=== PATIENT | female | born 1935 | race Caucasian/White ===

== ENCOUNTER 2017-09-14 14:24 | Emergency (ER) | payer OTHER ==
[2017-09-14] MEDS ORDERED: IPRATROPIUM BROM 0.5MG/2.5ML ONE (15:47)
[2017-09-14] MEDS ORDERED: ALBUTEROL 2.5 MG/3 ML NEB SOL ONE (15:47)
--- NOTE | 2017-09-14 16:01 | RAD REPORT ---
EXAM DESCRIPTION: RAD - Chest Pa And Lat (2 Views) - 09/14/2017 3:46 pm CLINICAL HISTORY: Cough, shortness of breath COMPARISON: June 2017 TECHNIQUE: PA and lateral views of the chest were obtained. FINDINGS: The lungs are fibrotic but otherwise clear of an acute process. Left costophrenic angle bl unting is present. Heart size is normal and central vasculature is within normal limits. No pneumo thorax. Osteopenic changes are present. There is accentuated kyphosis. The patient has multiple thora cic partial compression fractures. No bony changes since June. No aortic abnormality. Small hiat al hernia is present. IMPRESSION: Fibrotic lung pattern with no acute lung parenchymal process seen. Small left pleural effusion new from June.
--- NOTE | 2017-09-14 17:05 | ER ---
Nurse's Notes [facility] Emergency Department Name: Ciera Amor Age: 81 yrs Sex: Female : 1935 Arrival Date: 09/14/2017 Time: 14:25 Bed 27 Private MD: Jeffry Huddleston C Diagnosis: Acute bronchitis Presentation: 09/14 14:30 Presenting complaint: Patient states: " On Fri my throat felt swollen and I ph started losing my voice and got a cough. I am coughing up yellow and green thick mucus. Last night I got very SOB." Pt reports slight SOB and nausea, denies fever, V/D, roque eyes are reddened and pt reports crusting in eyes this morning. Transition of care: patient was not received from another setting of care. Onset of symptoms was September 14, 2017. Care prior to arrival: None. 14:30 Method Of Arrival: Wheelchair ph 14:30 Acuity: ROLAND 3 ph Triage Assessment: 16:03 General: Appears in no apparent distress. Behavior is calm, cooperative. Respiratory: rk2 Onset: The symptoms/episode began/occurred. Respiratory: Reports the patient has mild shortness of breath. Historical: - Allergies: 14:38 No Known Allergies; ph - PMHx: 14:38 Osteoporosis; Arthritis; breast cancer L; Hypertension; ph - PSHx: 14:38 Knee surgery; hip replacement; ph - Immunization history:: Pneumococcal vaccine is up to date, Flu vaccine is up to date. - Social history:: Smoking status: Patient/guardian denies using tobacco. Screenin:00 Abuse screen: Denies threats or abuse. Nutritional screening: No deficits noted. rk2 Tuberculosis screening: No symptoms or risk factors identified. Fall Risk Gait- Weak (10 pts.). Assessment: 16:01 Pain: Complains of pain in neck pain. Neuro: Level of Consciousness is alert, obeys rk2 commands, Oriented to person, place, time, situation. Cardiovascular: Rhythm is regular. Respiratory: Airway. Respiratory: Respiratory effort is even, unlabored, Respiratory pattern is regular, symmetrical, Breath sounds are clear in right upper lobe, left upper lobe, right middle lobe and left lower lobe Breath sounds with wheezes in right posterior lower lobe. Derm: Skin is pink, warm \\T\\ dry. 16:25 Reassessment: Pt. is resting in room in no obvious distress... completed breathing tx. rk2 Family \\T\\ bedside. Pt. voiced no needs \\T\\ this time. 17:17 Reassessment: Reviewed DC instructions and prescriptions with pt./family. No IV. Pt. rk2 taken out by wheelchair. Vital Signs: 14:33 BP 116 / 56; Pulse 85; Resp 22; Temp 98.1; Pulse Ox 97% on R/A; Weight 70.31 kg; Height ph 5 ft. 1 in. (154.94 cm); 16:30 BP 120 / 61; Pulse 85; Resp 17; Pulse Ox 98% on R/A; rk2 14:33 Body Mass Index 29.29 (70.31 kg, 154.94 cm) ph ED Course: 14:25 Patient arrived in ED. as 14:25 Jeffry Huddleston MD is Private Physician. as 14:33 Triage completed. ph 14:38 Arm band placed on. ph 15:03 Bhanu Coto MD is Attending Physician. 15:15 Joselin Costa RN is Primary Nurse. rk2 15:33 XRAY Chest Pa And Lat (2 Views) Sent. rk2 15:33 Influenza Screen (a \\T\\ B) Sent. rk2 15:38 Patient moved to radiology via wheelchair. kp1 15:43 Patient moved back from radiology. kp1 16:00 Patient has correct armband on for positive identification. Placed in gown. Bed in low rk2 position. Call light in reach. 17:18 No provider procedures requiring assistance completed. Patient did not have IV access rk2 during this emergency room visit. Administered Medications: 15:56 Drug: Albuterol 2.5 mg Route: Inhalation; rk2 17:19 Follow up: Response: No adverse reaction; No adverse reaction, Small aount of rk2 improvement. 15:56 Drug: AtroVENT Aerosol 0.5 mg Route: Inhalation; rk2 16:30 Follow up: Response: No adverse reaction; No adverse reaction, Small aount of rk2 improvement. Outcome: 17:05 Discharge ordered by . 17:18 Discharged to home via wheelchair. rk2 17:18 Condition: good 17:18 Discharge instructions given to patient, family, Prescriptions given X 2. 17:20 Patient left the ED. rk2 Signatures: Loulou Magaña Patricia, RN RN ph Rosy Bassett kp1 Bhanu Coto MD MD gs Joselin Costa RN RN rk2
--- NOTE | 2017-09-14 17:05 | EDPHYS ---
Physician Documentation [facility] Name: Ciera Amor Age: 81 yrs Sex: Female : 1935 Arrival Date: 09/14/2017 Time: 14:25 Bed 27 Private MD: Jeffry Huddleston C ED Physician Bhanu Coto HPI: 09/14 16:59 This 81 yrs old Female presents to ER via Wheelchair with complaints of gs Breathing Difficulty. 16:59 The patient or guardian reports cough, that is intermittent, difficulty breathing, flu gs symptoms, arthralgias, low-grade fever, myalgias, no appetite. Onset: The symptoms/episode began/occurred 4 day(s) ago, and became persistent. Severity of symptoms: At their worst the symptoms were moderate, in the emergency department the symptoms are unchanged. Modifying factors: The symptoms are alleviated by nothing, the symptoms are aggravated by cold weather. Associated signs and symptoms: Pertinent positives: fever, sore throat, Pertinent negatives: chest pain. The patient has experienced similar episodes in the past, a few times. Historical: - Allergies: 14:38 No Known Allergies; ph - PMHx: 14:38 Osteoporosis; Arthritis; breast cancer L; Hypertension; ph - PSHx: 14:38 Knee surgery; hip replacement; ph - Immunization history:: Pneumococcal vaccine is up to date, Flu vaccine is up to date. - Social history:: Smoking status: Patient/guardian denies using tobacco. ROS: 16:59 All other systems are negative. gs Exam: 16:59 Head/Face: Normocephalic, atraumatic. Eyes: Pupils equal round and reactive to light, gs extra-ocular motions intact. Lids and lashes normal. Conjunctiva and sclera are non-icteric and not injected. Cornea within normal limits. Periorbital areas with no swelling, redness, or edema. ENT: Nares patent. No nasal discharge, no septal abnormalities noted. Tympanic membranes are normal and external auditory canals are clear. Oropharynx with no redness, swelling, or masses, exudates, or evidence of obstruction, uvula midline. Mucous membranes moist. Neck: Trachea midline, no thyromegaly or masses palpated, and no cervical lymphadenopathy. Supple, full range of motion without nuchal rigidity, or vertebral point tenderness. No Meningismus. Chest/axilla: Normal chest wall appearance and motion. Nontender with no deformity. No lesions are appreciated. Cardiovascular: Regular rate and rhythm with a normal S1 and S2. No gallops, murmurs, or rubs. Normal PMI, no JVD. No pulse deficits. 16:59 Abdomen/GI: Soft, non-tender, with normal bowel sounds. No distension or tympany. No guarding or rebound. No evidence of tenderness throughout. Back: No spinal tenderness. No costovertebral tenderness. Full range of motion. Skin: Warm, dry with normal turgor. Normal color with no rashes, no lesions, and no evidence of cellulitis. MS/ Extremity: Pulses equal, no cyanosis. Neurovascular intact. Full, normal range of motion. Neuro: Awake and alert, GCS 15, oriented to person, place, time, and situation. Cranial nerves II-XII grossly intact. Motor strength 5/5 in all extremities. Sensory grossly intact. Cerebellar exam normal. Normal gait. 16:59 Constitutional: The patient appears alert, awake. 16:59 Chest/axilla: Inspection: kyphosis. 16:59 Respiratory: the patient does not display signs of respiratory distress, Respirations: normal, Breath sounds: rhonchi, that are mild, are scattered, stridor, is not appreciated. Vital Signs: 14:33 BP 116 / 56; Pulse 85; Resp 22; Temp 98.1; Pulse Ox 97% on R/A; Weight 70.31 kg; Height ph 5 ft. 1 in. (154.94 cm); 16:30 BP 120 / 61; Pulse 85; Resp 17; Pulse Ox 98% on R/A; rk2 14:33 Body Mass Index 29.29 (70.31 kg, 154.94 cm) ph MDM: 15:19 Patient medically screened. 16:59 Differential Diagnosis: Influenza Upper Respiratory Infection Pneumonia. Data reviewed: vital signs, nurses notes. Response to treatment: and as a result, I will discharge patient. 09/14 15:20 Order name: Influenza Screen (a \T\ B) 09/14 15:51 Order name: Influenza Screen (A ; Complete Time: 16:59 EDMS 09/14 15:20 Order name: XRAY Chest Pa And Lat (2 Views) 09/14 16:02 Order name: RAD; Complete Time: 16:59 EDMS Administered Medications: 15:56 Drug: Albuterol 2.5 mg Route: Inhalation; rk2 17:19 Follow up: Response: No adverse reaction; No adverse reaction, Small aount of rk2 improvement. 15:56 Drug: AtroVENT Aerosol 0.5 mg Route: Inhalation; rk2 16:30 Follow up: Response: No adverse reaction; No adverse reaction, Small aount of rk2 improvement. Disposition: 09/14/17 17:05 Discharged to Home. Impression: Acute bronchitis. - Condition is Stable. - Discharge Instructions: Acute Bronchitis. - Prescriptions for Prednisone 20 mg Oral Tablet - take 1 tablet by ORAL route once daily for 5 days; 5 tablet. Albuterol Sulfate 90 mcg/actuation - inhale 1-2 puff by INHALATION route every 4-6 hours; 1 Inhaler. - Medication Reconciliation Form, Thank You Letter, Antibiotic Education, Prescription Opioid Use form. - Follow up: Private Physician; When: 1 - 2 days; Reason: Re-evaluation by your physician. Signatures: Dispatcher [employer] EDTwila Her RN RN CotoBhanu jimenez MD MD Joselin Costa RN RN rk2
[2017-09-14 17:48] VITALS: TEMP 98.1
[2017-09-14 17:49] VITALS: BP 120/61; O2SAT 98
== END 2017-09-14 17:20 | disposition home or self-care (01) ==
LOC: ER 14:24
DX: J20.9 Acute bronchitis, unspecified (principal); I10 Essential (primary) hypertension; Z85.3 Personal history of malignant neoplasm of breast
CPT/HCPCS: 71046; 87804; 99284

== ENCOUNTER 2019-07-18 09:32 | Emergency (ER) | payer OTHER ==
--- NOTE | 2019-07-18 10:25 | RAD REPORT ---
EXAM DESCRIPTION: CT - Head Brain Wo Cont - 07/18/2019 10:10 am CLINICAL HISTORY: Alteration of awareness/confusion COMPARISON: None TECHNIQUE: Computed axial tomography of the head was obtained. IV contrast was not requested. All CT scans are performed using dose optimization technique as appropriate and may include automated exposure control or mA/KV adjustment according to patient size. FINDINGS: An intracranial bleed is not seen . The ventricles are normal in caliber. No extra-axial fluid collection is noted. Fluid within the sinuses/ mastoids is not seen. IMPRESSION: No acute intracranial abnormality is seen. If patient's symptoms persist MRI of the bra in would be recommended.
[2019-07-18 10:44] LABS: Absolute Lymphocytes (CBC) 2.7 K/uL (0.7-4.9); Basophils % 0.7 % (0-1.3); Hematocrit 42.6 % (36.0-45.0); Lymphocytes % 33.6 % (15.3-44.8); MPV 8.8 fL (7.6-11.3); RBC Red Blood Cell Count 4.99 M/uL (3.86-4.86)
--- NOTE | 2019-07-18 10:47 | RAD REPORT ---
EXAM DESCRIPTION: Paulina Single View07/18/2019 10:20 am CLINICAL HISTORY: Hypertension/blurred vision COMPARISON: 2017 FINDINGS: The lungs appear clear of acute infiltrate. The heart is normal size IMPRESSION: No acute abnormalities displayed
[2019-07-18 10:49] LABS: Protime INR 0.98
[2019-07-18 11:02] LABS: ALT/SGPT 25 U/L (12-78); AST/SGOT 22 U/L (15-37); Alkaline Phosphatase 47 U/L (45-117); BUN Blood Urea Nitrogen 10 mg/dL (7-18); Bicarbonate 27 mmol/L (21-32); Bilirubin Direct 0.1 mg/dL (0-0.2); Bilirubin Total 0.4 mg/dL (0.2-1.0); Glucose Level 117 mg/dL (74-106); NT PRO-BNP 380 pg/mL (<450); Potassium 3.6 mmol/L (3.5-5.1); Protein, Total 7.9 g/dL (6.4-8.2); Sodium Level 137 mmol/L (136-145); Troponin (Emerg Dept Use Only) < 0.02 ng/mL (0.0-0.045)
--- NOTE | 2019-07-18 11:58 | EKG ---
Test Date: 2019-07-18 Test Time: 10:26:10 [employer]ale Processing Technician: VICTOR MANUEL MEASUREMENT RESULTS: Intervals: Rate: 68 OK: 136 QRSD: 94 QT: 412 QTc: 438 [place]: P: 13 OK: 136 QRS: -41 T: 44 INTERPRETIVE STATEMENTS: Normal sinus rhythm Left axis deviation Minimal voltage criteria for LVH, may be normal variant Possible Anterior infarct, age undetermined Abnormal ECG Compared to ECG 07/10/2017 10:56:43 Left ventricular hypertrophy now present Myocardial infarct finding now present Electronically Signed On 07-18-19 11:58:02 STEM SETTER by Salvador Malik
[2019-07-18 12:04] LABS: Platelet Estimate ADEQ; Platelets, Giant PRESENT
[2019-07-18 12:05] LABS: Blood Morphology Comment NOT SEEN (NOT SEEN)
--- NOTE | 2019-07-18 12:25 | RAD REPORT ---
EXAM DESCRIPTION: CTHead angio07/18/2019 12:11 pm CLINICAL HISTORY: Visual disturbance COMPARISON: None TECHNIQUE: CT angiogram of the head was obtained. 3D MIPS reconstruction performed. All CT scans are performed using dose optimization technique as appropriate and may include automated exposure control or mA/KV adjustment according to patient size. FINDINGS: The basilar, internal carotid, anterior cerebral, middle cerebral and posterior cerebral a rteries do not demonstrate a significant stenosis. An aneurysm is not seen. origin of the right posterior cerebral artery is present. The distal internal carotid artery bi laterally is tortuous and ectatic. IMPRESSION: No acute abnormality is displayed
--- NOTE | 2019-07-18 13:19 | EDPHYS ---
Physician Documentation [facility] Name: Ciera Amor Age: 83 yrs Sex: Female : 1935 Arrival Date: 07/18/2019 Time: 09:34 Bed 23 Private MD: Jeffry Huddleston C ED Physician Ernie Joyner HPI: 07/19 12:23 This 83 yrs old Female presents to ER via Ambulatory with complaints of kdr Blurred Vision, Vision Problem, Headache. 12:23 The patient states that for the past 10 - 14 days she has had various visual kdr disturbances mostly in her right eye as well as occasional very mild ELIAS. She has not had this before and she states that her s/s come and go. She states that she has squiggly lines, spots and flashes that are transient. She denies AMS or any other focal weakness or other apparent neurological deficits.. Severity of symptoms: At their worst the symptoms were mild in the emergency department the symptoms have improved mildly. The patient has not experienced similar symptoms in the past. The patient has not recently seen a physician. Historical: - Allergies: 07/18 10:04 tramadol; ss - PMHx: 10:04 Arthritis; breast cancer L; Hypertension; Osteoporosis; ss - PSHx: 10:04 Knee surgery; hip replacement; ss - Immunization history:: Adult Immunizations up to date. - Coronavirus screen:: The patient has NOT traveled to [place], [place], or [place] in the past 14 days. Proceed with normal triage process as indicated. - Social history:: Smoking status: Patient denies any tobacco usage or history of. - Ebola Screening: : Patient denies exposure to infectious person Patient denies travel to an Ebola-affected area in the 21 days before illness onset. ROS: 07/19 12:23 Constitutional: Negative for fever, chills, and weight loss, Eyes: Negative for injury, kdr pain, redness, and discharge, ENT: Negative for injury, pain, and discharge, Neck: Negative for injury, pain, and swelling, Cardiovascular: Negative for chest pain, palpitations, and edema, Respiratory: Negative for shortness of breath, cough, wheezing, and pleuritic chest pain, Abdomen/GI: Negative for abdominal pain, nausea, vomiting, diarrhea, and constipation, Back: Negative for injury and pain, : Negative for injury, bleeding, discharge, and swelling, MS/Extremity: Negative for injury and deformity, Skin: Negative for injury, rash, and discoloration, Psych: Negative for depression, anxiety, suicide ideation, homicidal ideation, and hallucinations, Allergy/Immunology: Negative for hives, rash, and allergies. Neuro: Positive for dizziness, headache, visual changes, Negative for altered mental status, gait disturbance, hearing loss, loss of consciousness, numbness, seizure activity, speech changes, syncope, near syncope, tingling, tinnitus, tremor, weakness. Exam: 07/18 19:29 ECG was reviewed by the Attending Physician. kdr 07/19 12:23 Constitutional: This is a well developed, well nourished patient who is awake, alert, kdr and in no acute distress. Head/Face: Normocephalic, atraumatic. Eyes: Pupils equal round and reactive to light, extra-ocular motions intact. Lids and lashes normal. Conjunctiva and sclera are non-icteric and not injected. Cornea within normal limits. Periorbital areas with no swelling, redness, or edema. Neck: Trachea midline, no thyromegaly or masses palpated, and no cervical lymphadenopathy. Supple, full range of motion without nuchal rigidity, or vertebral point tenderness. No Meningismus. Chest/axilla: Normal chest wall appearance and motion. Nontender with no deformity. No lesions are appreciated. Cardiovascular: Regular rate and rhythm with a normal S1 and S2. No gallops, murmurs, or rubs. Normal PMI, no JVD. No pulse deficits. Respiratory: Lungs have equal breath sounds bilaterally, clear to auscultation and percussion. No rales, rhonchi or wheezes noted. No increased work of breathing, no retractions or nasal flaring. Abdomen/GI: Soft, non-tender, with normal bowel sounds. No distension or tympany. No guarding or rebound. No evidence of tenderness throughout. Back: No spinal tenderness. No costovertebral tenderness. Full range of motion. Skin: Warm, dry with normal turgor. Normal color with no rashes, no lesions, and no evidence of cellulitis. MS/ Extremity: Pulses equal, no cyanosis. Neurovascular intact. Full, normal range of motion. Neuro: Awake and alert, GCS 15, oriented to person, place, time, and situation. Cranial nerves II-XII grossly intact. Motor strength 5/5 in all extremities. Sensory grossly intact. Cerebellar exam normal. Normal gait. Visual hooks intact Psych: Awake, alert, with orientation to person, place and time. Behavior, mood, and affect are within normal limits. Vital Signs: 07/18 10:04 BP 136 / 96; Pulse 78; Resp 16; Pulse Ox 98% on R/A; Weight 68.04 kg; Height 5 ft. 0 ss in. (152.40 cm); Pain 0/10; 11:11 BP 150 / 72; Pulse 67; Resp 14; Pulse Ox 99% on R/A; aj1 12:16 BP 134 / 72; Pulse 85; Resp 18; Pulse Ox 97% on R/A; aj1 13:42 BP 140 / 61; Pulse 80; Resp 18; Temp 98; Pulse Ox 100% on R/A; mg2 10:04 Body Mass Index 29.29 (68.04 kg, 152.40 cm) ss MDM: 13:19 Patient medically screened. kdr 13:21 Data reviewed: vital signs, nurses notes, lab test result(s), EKG, radiologic studies. kdr Counseling: I had a detailed discussion with the patient and/or guardian regarding: the historical points, exam findings, and any diagnostic results supporting the discharge/admit diagnosis, lab results, radiology results, the need for outpatient follow up. Physician consultation: Ronald Simmons MD regarding consult, need to evaluate the patient as soon as possible, and will see patient in office, in 2-3 days. Physician consultation: Jeffry Huddleston MD regarding patient's condition, outpatient follow-up, and will see patient in office, next week. 07/18 09:46 Order name: Basic Metabolic Panel; Complete Time: 11:37 kdr 07/18 09:46 Order name: CBC with Diff; Complete Time: 12:23 kdr 07/18 09:46 Order name: LFT's; Complete Time: 11:37 kdr 07/18 09:46 Order name: Magnesium; Complete Time: 11:37 kdr 07/18 09:46 Order name: NT PRO-BNP; Complete Time: 11:37 kdr 07/18 09:46 Order name: PT-INR; Complete Time: 11:37 kdr 07/18 09:46 Order name: Troponin (emerg Dept Use Only); Complete Time: 11:37 kdr 07/18 09:46 Order name: XRAY Chest (1 view); Complete Time: 11:37 kdr 07/18 09:46 Order name: EKG; Complete Time: 09:47 kdr 07/18 09:46 Order name: Cardiac monitoring; Complete Time: 10:38 kdr 07/18 09:46 Order name: CT Head Brain wo Cont; Complete Time: 11:37 kdr 07/18 11:39 Order name: CT Head Angio; Complete Time: 12:47 kdr 07/18 11:58 Order name: ESR; Complete Time: 12:47 kdr 07/18 12:01 Order name: Manual Differential; Complete Time: 12:23 EDMS 07/18 09:46 Order name: EKG - Nurse/Tech; Complete Time: 10:38 kdr 07/18 09:46 Order name: IV Saline Lock; Complete Time: 10:38 kdr 07/18 09:46 Order name: Labs collected and sent; Complete Time: 10:38 kdr 07/18 09:46 Order name: O2 Per Protocol; Complete Time: 10:38 kdr 07/18 09:46 Order name: O2 Sat Monitoring; Complete Time: 10:38 kdr EC:29 Rate is 68 beats/min. Rhythm is regular, Normal Sinus Rhythm with No ectopy. Left axis kdr deviation noted. Clinical impression: NSR w/ Non-specific ST/T Changes and Abnormal EKG without significant change. Administered Medications: No medications were administered Disposition: 07/18/19 13:19 Discharged to Home. Impression: Vision Disturbances, headache. - Condition is Stable. - Discharge Instructions: Blurred Vision, Adult, General Headache Without Cause, [id number]. - Medication Reconciliation Form, Thank You Letter form. - Follow up: Jeffry Huddleston MD; When: 5 - 6 days; Reason: If symptoms return, Further diagnostic work-up, Recheck today's complaints, Continuance of care, Re-evaluation by your physician. Follow up: Ronald Simmons MD; When: 2 - 3 days; Reason: If symptoms return, Further diagnostic work-up, Recheck today's complaints, Continuance of care, Re-evaluation by your physician. - Problem is new. - Symptoms are unchanged. - Notes: Please call Dr. Simmons's office tomorrow to make an appointment. Follow-up [facility] Dr. Huddleston next week. Signatures: Dispatcher [employer] EDErnie Sandhu MD MD [facility] Jonelle Singer RN RN ss Azael Mesa RN RN mg2 Corrections: (The following items were deleted from the chart) 13:42 13:19 07/18/2019 13:19 Discharged to Home. Impression: Vision Disturbances, headache. mg2 Condition is Stable. Forms are Medication Reconciliation Form, Thank You Letter, Antibiotic Education, Prescription Opioid Use. Follow up: Jeffry Huddleston; When: 5 - 6 days; Reason: If symptoms return, Further diagnostic work-up, Recheck today's complaints, Continuance of care, Re-evaluation by your physician. Follow up: Ronald Simmons; When: 2 - 3 days; Reason: If symptoms return, Further diagnostic work-up, Recheck today's complaints, Continuance of care, Re-evaluation by your physician. Problem is new. Symptoms are unchanged. kdr
--- NOTE | 2019-07-18 13:19 | ER ---
Nurse's Notes [facility] Name: Ciera Amor Age: 83 yrs Sex: Female : 1935 Arrival Date: 07/18/2019 Time: 09:34 Bed 23 Private MD: Jeffry Huddleston C Diagnosis: Vision Disturbances, headache Presentation: 07/18 10:02 Presenting complaint: Patient states: visual disturbances with intermittent nausea and ss dizziness that began a little over a week ago. Transition of care: patient was not received from another setting of care. Onset of symptoms was July 11, 2019. Risk Assessment: Do you want to hurt yourself or someone else? Patient reports no desire to harm self or others. Initial Sepsis Screen: Does the patient meet any 2 criteria? No. Patient's initial sepsis screen is negative. Does the patient have a suspected source of infection? No. Patient's initial sepsis screen is negative. Care prior to arrival: None. 10:02 Method Of Arrival: Ambulatory ss 10:02 Acuity: ROLAND 3 ss Historical: - Allergies: 10:04 tramadol; ss - PMHx: 10:04 Arthritis; breast cancer L; Hypertension; Osteoporosis; ss - PSHx: 10:04 Knee surgery; hip replacement; ss - Immunization history:: Adult Immunizations up to date. - Coronavirus screen:: The patient has NOT traveled to [place], [place], or [place] in the past 14 days. Proceed with normal triage process as indicated. - Social history:: Smoking status: Patient denies any tobacco usage or history of. - Ebola Screening: : Patient denies exposure to infectious person Patient denies travel to an Ebola-affected area in the 21 days before illness onset. Screenin:30 Abuse screen: Denies threats or abuse. Denies injuries from another. Nutritional aj1 screening: No deficits noted. Tuberculosis screening: No symptoms or risk factors identified. Assessment: 10:30 General: Appears in no apparent distress. comfortable, Behavior is calm, cooperative, aj1 appropriate for age. Pain: Complains of pain in face Pain does not radiate. Neuro: Level of Consciousness is awake, alert, obeys commands, Oriented to person, place, time, situation, Moves all extremities. Full function Speech is normal, Facial symmetry appears normal, Reports blurred vision that is intermittent for the past week. Cardiovascular: Heart tones S1 S2 present Patient's skin is warm and dry. Rhythm is sinus rhythm. Respiratory: Airway is patent Respiratory effort is even, unlabored, Respiratory pattern is regular, symmetrical, Breath sounds are clear bilaterally. GI: Abdomen is non-distended, Reports nausea, Patient currently denies vomiting. : No signs and/or symptoms were reported regarding the genitourinary system. EENT: No signs and/or symptoms were reported regarding the EENT system. Derm: No signs and/or symptoms reported regarding the dermatologic system. Skin is pink, warm \T\ dry. normal. Musculoskeletal: No signs and/or symptoms reported regarding the musculoskeletal system. Circulation, motion, and sensation intact. 11:10 Reassessment: Patient appears in no apparent distress at this time. No changes from aj1 previously documented assessment. Patient and/or family updated on plan of care and expected duration. Pain level reassessed. Patient is alert, oriented x 3, equal unlabored respirations, skin warm/dry/pink. 12:15 Reassessment: Patient appears in no apparent distress at this time. No changes from aj1 previously documented assessment. Patient and/or family updated on plan of care and expected duration. Pain level reassessed. Patient is alert, oriented x 3, equal unlabored respirations, skin warm/dry/pink. 13:42 Reassessment: Patient appears in no apparent distress at this time. mg2 Vital Signs: 10:04 BP 136 / 96; Pulse 78; Resp 16; Pulse Ox 98% on R/A; Weight 68.04 kg; Height 5 ft. 0 ss in. (152.40 cm); Pain 0/10; 11:11 BP 150 / 72; Pulse 67; Resp 14; Pulse Ox 99% on R/A; aj1 12:16 BP 134 / 72; Pulse 85; Resp 18; Pulse Ox 97% on R/A; aj1 13:42 BP 140 / 61; Pulse 80; Resp 18; Temp 98; Pulse Ox 100% on R/A; mg2 10:04 Body Mass Index 29.29 (68.04 kg, 152.40 cm) ED Course: 09:34 Patient arrived in ED. ag5 09:35 Jeffry Huddleston MD is Private Physician. ag5 09:40 Ernie Joyner MD is Attending Physician. kdr 10:03 Triage completed. ss 10:04 Arm band placed on right wrist. ss 10:09 CT Head Brain wo Cont In Process Unspecified. EDMS 10:17 XRAY Chest (1 view) In Process Unspecified. EDMS 10:30 Patient has correct armband on for positive identification. Bed in low position. Call aj1 light in reach. 10:30 No provider procedures requiring assistance completed. aj1 10:37 Initial lab(s) drawn, by va, sent to lab. EKG done, by ED staff, reviewed by Ernie Joyner MD. Inserted saline lock: 22 gauge in left antecubital area, using aseptic technique. Blood collected. 11:06 Lulu Brown, RN is Primary Nurse. aj1 12:11 CT completed. Patient tolerated procedure well. Patient moved back from CT. mw3 12:11 CT Head Angio In Process Unspecified. EDMS 13:17 Jfefry Huddleston MD is Referral Physician. kdr 13:17 Ronald Simmons MD is Referral Physician. kdr 13:42 IV discontinued, intact, bleeding controlled, No redness/swelling at site. Pressure mg2 dressing applied. Administered Medications: No medications were administered Outcome: 13:19 Discharge ordered by MD. kdr 13:42 Discharged to home via wheelchair. mg2 13:42 Condition: stable 13:42 Discharge instructions given to patient, Instructed on discharge instructions, follow up and referral plans. Demonstrated understanding of instructions, follow-up care. 13:42 Patient left the ED. mg2 Signatures: Dispatcher [employer] EDMA Rony Linda Angela, RN RN aj1 Rittger, Kevin, MD MD kdr Jonelle Singer RN RN Azael Mesa RN RN [facility] Caro Carcamo mw3 Jose Stubbs ag5
[2019-07-18 13:56] VITALS: BP 140/61; TEMP 98; O2SAT 100
== END 2019-07-18 13:42 | disposition home or self-care (01) ==
LOC: ER 09:32
DX: R51 Headache (principal); I10 Essential (primary) hypertension; Z85.3 Personal history of malignant neoplasm of breast; Z88.6 Allergy status to analgesic agent
CPT/HCPCS: 93005; 85025; 80048; 36415; 83735; 85610; 80076; 85652; 84484; 83880; 70450; 70496; 71045; 99285; Q9967

== ENCOUNTER 2021-09-24 14:21 | Emergency (ER) | payer OTHER ==
--- OUTSIDE RECORDS SUMMARY | 2021-09-24 14:23 | XMS REPORT | Continuity of Care Document ---
:1935 Author Organization [facility] t Address [address] [place] [address] Care Team Providers Name Role Phone Felipe Fong Attending Clinician Unavailable [place] Attending Clinician Unavailable KNOW Admitting Clinician Unavailable Payers Payer Name Policy Type Policy Number Effective Date Expiration Date S ource Problems This patient has no known problems. Allergies, Adverse Reactions, Alerts Allergy Allergy Status Severity Reaction(s) Onset Inactive Treating Comm ents Source Name Type Date Date Clinician No Known DA Active U 2019-06 [facility] Allergie 0- [place] 00:[place]: [facility] [place] Known DA Active U 2019-06 [facility] All[facility]ie 0- [place] 00:00: [address] [facility] Medications This patient has no known medications. Procedures Procedure Date / Time Performed Performing Clinician Sour e [id number] 2020-04-24 00:00:00 [facility] [id number] 2020-04-24 00:00:00 [facility] [id number] 2020-04-24 00:00:00 [facility] [id number] 2020-04-24 00:00:00 [facility] [id number] 2020-04-19 00:00:00 [facility] [id number] 2020-04-19 00:00:00 [facility] Encounters Start End Encounter Admission Attending Care Care Encounter Source Date/Time Date/Time Type Type Clinicians Facility Department ID 2020-04-19 Inpatient NADER Fong DAYS [id number] [facility] 07:30:00 Phan [id number] [facility] 2021-02-14 2021-02-14 Outpatient [facility] [id number] [place] 00:00:00 00:00:00 [facility] [address] 2021-02-14 2021-02-14 Outpatient [facility] [id number] [place] 00:00:00 00:00:00 [facility] [address] 2021-01-04 2021-01-04 Outpatient [facility] [id number] [place] 00:00:00 00:00:[address] 2020-04-14 2020-04-14 Outpatient BONNIE Ajit, [facility] [id number] [id number] [facility] 09:00:00 09:00:[id number] [facility] Results Test Description Test Time Test Comments Results Result Comments Source SURGICAL SPECIMENS 2020-04-26 11:43:00 Test Item Value Reference Range Interpretation Comme nts SURGICAL RUN SPECIMENS DATE: 04/26/20 [facility] - LAB PAGE 1 RUN TIME: (test code 1143 Specimen Inquiry RUN USER: INTERFACE = SURG) PATIHaim NT: ISAIAH FAIR LOC: P.5N POD B U #: [id number] AGE/SX: 84/F ROOM: [facility] RE04/19/20REG DR: Phan Fong : [birth year] BED: 1 DIS: 04/25/20 STATUS: DIS IN TLOC: SPEC #: [id number] RECD: 04/24/20 STATUS: YAQUELIN REQ #: [id number] RITESH: 04/24/[address] [facility] [address]: Phan Fong MD ENTERED: 04/24/20 SP TYPE: SURG OTHR DR: DOES _NOT KNOW Rony Donohue Jr, MDORDERED: PATHGM4/3, PATH SPEC, H E STAIN/3 HISTOLOGY: TISSUE ID BLK PCS JUANITA LEV / PROCEDURE DISPOSITION ____ ___ ___ ___ ___ DUODENUM A 1 3 GASTRIC BIOPSY B 1 3 ESOPHAGUS BX C 1 3 TI SSUES: A. DUODENUM BIOPSY - Duodenum Bx B. GASTRIC BIOPSY - Gastric Bx C. ESOPHAGUS BIOPSY - Esophagus Bx ADDITIONAL TESTS ASR DISCLAIMER FOR IMMUNOHISTOCH EMISTRY: This test was developed and its performance characteristics determined by the [facility]. It has not been cleared or approved by the US Food and Drug Administra tion. The FDA has determined that such clearance or approval is not necessary. The test is used for clinical purposes. It should not be regarded as investigational or for resea [facility]. [facility] is certified under CLIA-88 (Clinical Laboratory Improve ment Amendment of 1988) as qualified to perform high-complexity clinical laboratory testing. All controls show appropriate reactivity. CLINICAL HISTORY Nausea, Anorexia FINAL DIAGNOSIS A. DUODENUM, BIOPSY: - SMALL BOWEL MUCOSA WITH NO DIAGNOS TIC ABNORMALITY - NO PARASITE, GRANULOMA, DYSPLASIA, OR MALIGNANCY IS IDENTIFIED B. STOMACH, BIOPSY: - ANTRAL MUCOSA WITH REACTIVE GASTROPATHY AND MILD FOCAL A CUTE ACTIVITY - NEGATIVE FOR HELICOBACTER PYLORI BY IMMUNOHISTOCHEMISTRY - NO INTESTINAL METAPLASIA, DYSPLASIA, OR MALIGNANCY IS IDENTIFIED C. ESOPHAG US, BIOPSY: - SQUAMOUS MUCOSA WITH REFLUX ESOPHAGITIS CONTINUED ON NEXT PAGE * * RUN DATE: 04/26/20 [facility] - LAB PAGE 2 RUN TIME: 1143 Specimen Inquiry RUN USER: INTERFACE SPEC #: [id number] PATIENT: ISAIAH FAIR RUTH #[id number] (Continued) ------ FINAL DIAGNOS IS (Continued) - NO INTESTINAL METAPLASIA, DYSPLASIA, OR MALIGNANCY IS IDENTIFIED CPT: 79845 x3, 95619 GROSS DESCRIPTION A. The specimen is received in formalin labeled with the patient's name, medical record number, and "duodenum biopsy". The specimen consists of six francisco-pink tissue fragments, 0.2 cm each, submitted in "A". B. The specimen is received in formalin labeled with the patient's name, medical record number, and "gastric biopsy". The specimen consists of four tissue fragments ranging from 0.2 to 0.3 cm, submitted in "B". C. The specimen is received in formalin labeled with the patient's n markie, medical record number, and "esophagus biopsy". The specimen consists of six tissue fra gments, 0.1 to 0.2 cm, submitted in "C". CM/ph MICROSCOPIC DESCRIPTION Performed. ----- Signed SIGNATURE ON Cristiane Ann MD 04/26/20 1143 END OF REPORT - US ABDOMEN [id number] 16:28:00 [facility] MIRANDA : 1935 Sex: FPatient Name: ISAIAH FAIR RUTH Unit No: [id number] EXAMS: CPT CODE: [id number] US ABDOMEN COMPLETE 42869 EXAM: ABDOMINAL ULTRASOUND COMPLETE INDICATION:nausea LOCATION CODE: A 1 COMPARISON: None available. TECHNIQUE: Grayscale and limited color sonographic evaluation of the abdomen was performed. FINDINGS: LIVER: The right liver measures 15.3 cm in craniocaudal dimension. Simple cyst is identified in the left liver measuring up to 1.6 cm. No additional hepatic lesions are identified. The main portal vein shows hepatopetal flow. BILE DUCTS: No intrahepatic biliary duct dilatation is seen. The common bile duct measures 0.5 cm. GALLBLADDER: Surgically absent. PANCREAS: The visible portions of pancreas appear unremarkable. SPLEEN: The spleen measures 8.7 cm. No focal splenic lesions are seen. KIDNEY: The right kidney measures 9.1 x 4.0 x 4.6 cm. The left kidney measures 10.8 x 4.0 x 3.9 cm. Simple cyst is identified at the left kidney measuring up to 3.5 cm. There is no hydronephrosis. AORTA AND INFERIOR VENA CAVA: Atherosclerotic plaque is noted in the abdominal aorta. No aneurysm formation is seen. ASCITES: There is no abdominal ascites. IMPRESSION: Simple hepatic and renal cysts, otherwise unremarkable abdominal ultrasound. [facility]: Julio Reina MD [address] DOB: 1935 Age: 84 Sex: F [place] [address] Loc: [phone] 1 Exam Date: 04/24/2020 Status: ADM IN PH: FAX: PAGE 1 Signed Report (CONTINUED) Patient Name: ISAIAH FAIR Unit No: [id number] EXAMS: CPT CODE: [id number] US ABDOMEN COMPLETE 62101 <Continued> at 1628 Reported and signed by: ALLYSON ORNELAS M.D. CC: Phan Fong MD; Julio Duran MD Technologist: Caitlin Cordova Probe: Trscr Dt/Tm: 04/24/2020 (16 28) by:[email or web address] Printed Date/Time: 04/24/2020 (3261) [facility]: Shonda Saenz MD [address] DOB: 1935 Age: 84 Sex: F [place] [address] Loc: P.[id number] 1 Exam Date: 04/24/2020 Status: ADM IN PH: FAX: PAGE 2 Signed ReportCOMPREHENSIVE METABOLIC [id number] 13:53:00 Test Item Value Reference Range Interpretation Comments SODIUM (test code = 131 MMOL/L 136-143 L NA) POTASSIUM (test 3.7 MMOL/L 3.5-5.1 code = K) CHLORIDE (test code 95 MMOL/L 98-107 L = CL) CARBON DIOXIDE 24 mmol/L 24-31 N (test code = CO2) GLUCOSE (test code 150 mg/dL 70-104 H = GLU) BLOOD UREA NITROGEN 7.5 MG/DL 7.0-21.0 N (test code = BUN) GLOMERULAR >=60 max >60 The estimated FILTRATION RATE estimate glomerular (test code = GFR) filtration rate is computed usingpatient ra ce, age (>18), sex, and serum creatinin e. If anyof the ne eded data elements a re missing the Laboratory wes ot compute an estimation of t he glomerular filtration rate . CREATININE (test 0.7 mg/dL 0.8-1.5 L code = CREAT) TOTAL PROTEIN (test 5.7 g/dL 6.3-8.3 L code = PROT) ALBUMIN (test code 3.2 G/DL 3.5-5.0 L = ALB) CALCIUM (test code 8.7 mg/dL 8.8-10.2 L = CA) BILIRUBIN TOTAL 0.4 mg/dL 0.2-1.0 N (test code = BILT) SGOT/AST (test code 22 IU/L 10-34 N = AST) SGPT/ALT (test code 11 U/L 10-36 N = ALT) ALKALINE 46 U/L 32-104 N PHOSPHATASE (test code = ALKP) [id number] 13:51:00 Test Item Value Reference Range Interpretation Comments PREALBUMIN (test code = PREALB) 10.9 MG/ML 15-42 L CBC W/AUTO [id number] 13:17:00 Test Item Value Reference Range Interpretation Comments WHITE BLOOD CELL (test code = 9.4 x10 3/uL 4.8-10.8 N WBC) RED BLOOD CELL (test code = 3.63 x10 6/uL 4.20-5.40 L RBC) HEMOGLOBIN (test code = HGB) 10.6 g/dL 14.5-20 L HEMATOCRIT (test code = HCT) 32.1 % 37.0-47.0 L MEAN CELL VOLUME (test code = 88.4 fL 81.0-99.0 N MCV) MEAN CELL HGB (test code = MCH) 29.2 pg 27-31 N MEAN CELL HGB CONCENTRATION 33.0 G/DL 33-36.5 N (test code = MCHC) RED CELL DISTRIBUTION WIDTH 14.9 % 12.9-16.9 N (test code = RDW) PLATELET COUNT (test code = 386 150-440 N PLT) MEAN PLATELET VOLUME (test code 10.3 fL 8.9-12.4 N = MPV) NEUTROPHIL % (test code = NT%) 49.3 % 42.2-75.2 N LYMPHOCYTE % (test code = LY%) 37.3 % 20.5-51.1 N MONOCYTE % (test code = MO%) 8.6 % 1.7-9.3 N EOSINOPHIL % (test code = EO%) 2.1 % 0.0-7.0 N BASOPHIL % (test code = BA%) 0.7 % 0-2.5 N NEUTROPHIL # (test code = NT#) 4.62 x10 3/uL 1.80-7.70 N LYMPHOCYTE # (test code = LY#) 3.51 x10 3/uL 1.00-4.80 N MONOCYTE # (test code = MO#) 0.81 x10 3/uL 0.00-0.80 H EOSINOPHIL # (test code = EO#) 0.20 x10 3/uL 0.00-0.45 N BASOPHIL # (test code = BA#) 0.07 x10 3/uL 0.0-0.20 N BASIC METABOLIC [id number] 05:32:00 Test Item Value Reference Range Interpretation Comments SODIUM (test code 131 MMOL/L 136-143 L = NA) POTASSIUM (test 4.7 MMOL/L 3.5-5.1 N code = K) CHLORIDE (test 98 MMOL/L 98-107 N code = CL) CARBON DIOXIDE 23 mmol/L 24-31 L (test code = CO2) GLUCOSE (test code 139 mg/dL 70-104 H = GLU) BLOOD UREA 12.6 MG/DL 7.0-21.0 N NITROGEN (test code = BUN) GLOMERULAR >=60 max >60 The estimated FILTRATION RATE estimate glomerular (test code = GFR) filtration rate is computed usingpatient ra ce, age (>18), sex, and serum creatinin e. If anyof the neede d data elements a re missing the Laboratory wes ot compute an estimation of t he glomerular filtration rate . CREATININE (test 0.7 mg/dL 0.8-1.5 L code = CREAT) CALCIUM (test code 8.2 mg/dL 8.8-10.2 L = CA) CBC W/AUTO [id number] 05:04:00 Test Item Value Reference Range Interpretation Comments WHITE BLOOD CELL (test code = 13.6 x10 3/uL 4.8-10.8 H WBC) RED BLOOD CELL (test code = 3.50 x10 6/uL 4.20-5.40 L RBC) HEMOGLOBIN (test code = HGB) 10.2 g/dL 14.5-20 L HEMATOCRIT (test code = HCT) 31.0 % 37.0-47.0 L MEAN CELL VOLUME (test code = 88.6 fL 81.0-99.0 N MCV) MEAN CELL HGB (test code = MCH) 29.1 pg 27-31 N MEAN CELL HGB CONCENTRATION 32.9 G/DL 33-36.5 L (test code = MCHC) RED CELL DISTRIBUTION WIDTH 15.3 % 12.9-16.9 N (test code = RDW) PLATELET COUNT (test code = 243 150-440 N PLT) MEAN PLATELET VOLUME (test code 10.3 fL 8.9-12.4 N = MPV) NEUTROPHIL % (test code = NT%) 57.0 % 42.2-75.2 N LYMPHOCYTE % (test code = LY%) 32.9 % 20.5-51.1 N MONOCYTE % (test code = MO%) 9.2 % 1.7-9.3 N EOSINOPHIL % (test code = EO%) 0.1 % 0.0-7.0 N BASOPHIL % (test code = BA%) 0.1 % 0-2.5 N NEUTROPHIL # (test code = NT#) 7.71 x10 3/uL 1.80-7.70 H LYMPHOCYTE # (test code = LY#) 4.46 x10 3/uL 1.00-4.80 N MONOCYTE # (test code = MO#) 1.25 x10 3/uL 0.00-0.80 H EOSINOPHIL # (test code = EO#) 0.02 x10 3/uL 0.00-0.45 N BASOPHIL # (test code = BA#) 0.02 x10 3/uL 0.0-0.20 N - XR CHEST 1 [id number] 07:40:00 [facility] 1935 Sex: FPatient Name: ISAIAH FAIR Unit No: [id number] EXAMS: CPT CODE: [id number] XR CHEST 1 V 00154 EXAMINATION: - XR CHEST 1 V HISTORY: Preop COMPARISON: None. LOCATION CODE: C3 FINDINGS: Single frontal view of the chest is submitted for evaluation. Areas of mild scar are present in both lungs. The cardiac silhouette, mediastinum and pulmonary vasculature are unremarkable. Ather omatous plaquing is seen in the aorta and pronounced osteoarthritic changes are seen in the shoulders. Kyphoplasty changes are noted in the lower thoracic/upper lumbar spine. IMPRESSION: No acute radiographic abnormality at 0740 Reported and signed by: JUDY OSPINA CC: Phan Fong MD Technologist: Deepak Salas Time: DAP (Gy m2): Air Kerma (mGy): Trscr Dt/Tm: 04/19/2020 (0740) by:[email or web address] Printed Date/Time: 04/19/2020 (6558) Name: PRAVEEN FAIRKASSY MIRANDA [facility] Phys: Phan Mckeon [address] : 1935 Age: 84 Sex: F [place] [id number] Loc: P.SHA 01 Exam Date: 04/19/2020 Status: ADM IN PH: FAX: PAGE 1 Signed ReportCBC W/AUTO [id number] 07:29:00 Test Item Value Reference Range Interpretation Comments WHITE BLOOD CELL (test code = 9.8 x10 3/uL 4.8-10.8 N WBC) RED BLOOD CELL (test code = 4.29 x10 6/uL 4.20-5.40 N RBC) HEMOGLOBIN (test code = HGB) 12.5 g/dL 14.5-20 L HEMATOCRIT (test code = HCT) 38.3 % 37.0-47.0 N MEAN CELL VOLUME (test code = 89.3 fL 81.0-99.0 N MCV) MEAN CELL HGB (test code = MCH) 29.1 pg 27-31 N MEAN CELL HGB CONCENTRATION 32.6 G/DL 33-36.5 L (test code = MCHC) RED CELL DISTRIBUTION WIDTH 15.1 % 12.9-16.9 N (test code = RDW) PLATELET COUNT (test code = 265 150-440 N PLT) MEAN PLATELET VOLUME (test code 10.5 fL 8.9-12.4 N = MPV) NEUTROPHIL % (test code = NT%) 43.7 % 42.2-75.2 N LYMPHOCYTE % (test code = LY%) 43.7 % 20.5-51.1 N MONOCYTE % (test code = MO%) 9.8 % 1.7-9.3 H EOSINOPHIL % (test code = EO%) 1.6 % 0.0-7.0 N BASOPHIL % (test code = BA%) 0.7 % 0-2.5 N NEUTROPHIL # (test code = NT#) 4.29 x10 3/uL 1.80-7.70 N LYMPHOCYTE # (test code = LY#) 4.30 x10 3/uL 1.00-4.80 N MONOCYTE # (test code = MO#) 0.96 x10 3/uL 0.00-0.80 H EOSINOPHIL # (test code = EO#) 0.16 x10 3/uL 0.00-0.45 N BASOPHIL # (test code = BA#) 0.07 x10 3/uL 0.0-0.20 N COMPREHENSIVE METABOLIC [id number] 07:22:00 Test Item Value Reference Range Interpretation Comments SODIUM (test code = 139 MMOL/L 136-143 N NA) POTASSIUM (test 4.8 MMOL/L 3.5-5.1 N code = K) CHLORIDE (test code 103 MMOL/L 98-107 N = CL) CARBON DIOXIDE 25 mmol/L 24-31 N (test code = CO2) GLUCOSE (test code 90 mg/dL 70-104 N = GLU) BLOOD UREA NITROGEN 12.8 MG/DL 7.0-21.0 N (test code = BUN) GLOMERULAR >=60 max >60 The estimated FILTRATION RATE estimate glomerular (test code = GFR) filtration rate is computed usingpatient ra ce, age (>18), sex, and serum creatinin e. If anyof the ne eded data elements a re missing the Laboratory wes ot compute an estimation of t he glomerular filtration rate . CREATININE (test 0.7 mg/dL 0.8-1.5 L code = CREAT) TOTAL PROTEIN (test 6.6 g/dL 6.3-8.3 N code = PROT) ALBUMIN (test code 4.2 G/DL 3.5-5.0 N = ALB) CALCIUM (test code 9.5 mg/dL 8.8-10.2 N = CA) BILIRUBIN TOTAL 0.3 mg/dL 0.2-1.0 N (test code = BILT) SGOT/AST (test code 38 IU/L 10-34 H = AST) SGPT/ALT (test code 15 U/L 10-36 N = ALT) ALKALINE 31 U/L 32-104 L PHOSPHATASE (test code = ALKP) Novel Coronavirus 2019 [id number] 10:12:00 Test Item Value Reference Range Interpretation Comments Novel Coronavirus Not Detected Not Detected Testing wa s performed 2018 Inhouse (test using the [employer] code = COVNONPUI) SARS-CoV-2 assay.This nucleic acid amplification t est was developed and itsperformance characteristics determined by [facility]. Nucleic acid amplification t ests include PCRand TMA. This test has not be en FDA cleared or appr ignacio.This test has been a uthorized by FDA under an Emergency UseAuthorizatio n (EUA). This test is on ly authorized fort he duration of fausto e the declaration be t circumstancesex ist justifying the authorization o f the emergency use o fin vitro diagnostic test s for detection of SA RS-CoV-2 virusand/or refugio gnosis of COVID-19 infect ion under ejoayfw548(b)(1 ) of the Act, 21 U.S.C. 360bbb-3(b) (1) , unless theauthorizatio n is terminated or r evoked sooner.When refugio gnostic testing is nega tive, the possibility of afalse negative result should be considered i n the contextof a pat ient's recent exposure s and the presence ofclin ical signs and sympt oms consistent with COVID-19. Anind ividual without symptom s of COVID-19 and wh o is notshedding MELANIA S-CoV-2 virus would exp ect to have a negative (not detected) resul t in this assay.Performed At: [facility] [id number] jill Ashford MD Ph:[phone]
--- NOTE | 2021-09-24 19:04 | RAD REPORT ---
EXAM DESCRIPTION: CT - Shoulder Right Wo Cont - 09/24/2021 6:52 pm CLINICAL HISTORY: Shoulder pain COMPARISON: X-ray September 24, 2021 TECHNIQUE: Computed axial tomography right shoulder obtained. Coronal and sagittal reconstruction All CT scans are performed using dose optimization technique as appropriate and may include automated exposure control or mA/KV adjustment according to patient size. FINDINGS: Right shoulder arthroplasty has been performed. The prosthesis is in good position. No evidence of loosening of the prosthesis. The bones are osteoporotic. Mildly displaced fracture scapular coracoid process No dislocation IMPRESSION: Mildly displaced fracture scapular coracoid process
--- NOTE | 2021-09-24 19:24 | ER ---
Nurse's Notes [facility] Name: Ciera Amor Age: 85 yrs Sex: Female : 1935 Arrival Date: 09/24/2021 Time: 14:22 Bed Waiting Private MD: Diagnosis: Coracoid process fracture, initial visit Presentation: 09/24 15:03 Chief complaint: Patient states: R shoulder pain that started today, hx of shoulder ph replacement, R arm in sling in triage, states, " I was at physical therapy for my back and they put it on there for me.". Coronavirus screen: Vaccine status: Patient reports receiving the 2nd dose of the covid vaccine. Ebola Screen: No symptoms or risks identified at this time. Initial Sepsis Screen: Does the patient meet any 2 criteria? No. Patient's initial sepsis screen is negative. Does the patient have a suspected source of infection? No. Patient's initial sepsis screen is negative. Risk Assessment: Do you want to hurt yourself or someone else? Patient reports no desire to harm self or others. Onset of symptoms was September 24, 2021. 15:03 Method Of Arrival: Wheelchair ph 15:03 Acuity: ROLAND 4 ph Triage Assessment: 15:12 General: Appears in no apparent distress. comfortable, Behavior is calm, cooperative, ph appropriate for age. Pain: Complains of pain in posterior aspect of right shoulder. Historical: - Allergies: 15:11 tramadol; ph - PMHx: 15:11 Arthritis; Hypertension; breast cancer L; Osteoporosis; ph - PSHx: 15:11 R shoulder replacement; ph - Immunization history:: Adult Immunizations up to date. - Social history:: Smoking status: Patient denies any tobacco usage or history of. Screenin:28 Abuse screen: Denies threats or abuse. Denies injuries from another. Nutritional ph screening: No deficits noted. Tuberculosis screening: No symptoms or risk factors identified. Fall Risk None identified. Assessment: 19:27 Reassessment: Patient appears in no apparent distress at this time. Patient and/or ph family updated on plan of care and expected duration. Pain level reassessed. Patient is alert, oriented x 3, equal unlabored respirations, skin warm/dry/pink. Pt in triage to speak w/ ERP about CT results, pt to be d/c from triage. 19:37 Reassessment: Patient appears in no apparent distress at this time. Pt d/c w/ sling in ph place. Vital Signs: 15:03 BP 139 / 62; Pulse 68; Resp 18; Temp 98.8; Pulse Ox 99% on R/A; Weight 58.51 kg; Height ph 5 ft. 0 in. (152.40 cm); 19:28 BP 129 / 68; Pulse 67; Resp 18; Temp 98.0; Pulse Ox 99% on R/A; ph 15:03 Body Mass Index 25.19 (58.51 kg, 152.40 cm) ph ED Course: 14:22 Patient arrived in ED. ds1 14:45 George Good PA is PHCP. jadyn 14:45 Noah Rodriguez MD is Attending Physician. m 15:11 Triage completed. ph 15:12 Arm band placed on Patient placed in waiting room. X-ray ordered. ph 15:56 X-ray completed. Portable x-ray completed in exam room. Patient tolerated procedure 1 well. 15:58 Shoulder Right (2 View) XRAY In Process Unspecified. EDMS 18:52 Shoulder Right Wo Cont In Process Unspecified. EDMS 19:28 Patient has correct armband on for positive identification. Pulse ox on. NIBP on. ph 19:37 No provider procedures requiring assistance completed. Patient did not have IV access ph during this emergency room visit. Administered Medications: No medications were administered Outcome: 19:23 Discharge ordered by MD. [facility] 19:37 Discharged to home ambulatory, with family. ph 19:37 Condition: good 19:37 Discharge instructions given to patient, family, Instructed on discharge instructions, follow up and referral plans. Demonstrated understanding of instructions, follow-up care. 19:38 Patient left the ED. ph Signatures: Dispatcher [employer] EDMS George Good PA PA jmm Harvey, Martha 1 Renae Barnard ds1 Twila Alejandra RN RN ph
--- NOTE | 2021-09-24 19:24 | EDPHYS ---
Physician Documentation [facility] Name: Ciera Amor Age: 85 yrs Sex: Female : 1935 Arrival Date: 09/24/2021 Time: 14:22 Bed Waiting Private MD: ED Physician Noah Rodriguez HPI: 09/24 15:00 This 85 yrs old Female presents to ER via Wheelchair with complaints of Shoulder Pain. jmm 15:00 The patient or guardian complains of pain. right shoulder and right trapezius. Onset: jmm The symptoms/episode began/occurred acutely, just prior to arrival. Modifying factors: the symptoms are alleviated by remaining still, sling, The symptoms are aggravated by movement. Associated signs and symptoms: Pertinent negatives: shortness of breath. This is an 85-year-old with history of hypertension, breast cancer, osteoporosis, right shoulder replacement the presents emerged part with complaints of right shoulder pain. Symptoms began after she lifted her right arm. Denies other known injury.. Historical: - Allergies: 15:11 tramadol; ph - PMHx: 15:11 Arthritis; Hypertension; breast cancer L; Osteoporosis; ph - PSHx: 15:11 R shoulder replacement; ph - Immunization history:: Adult Immunizations up to date. - Social history:: Smoking status: Patient denies any tobacco usage or history of. ROS: 15:00 Constitutional: Negative for fever, chills, and weight loss, Cardiovascular: Negative jmm for chest pain, palpitations, and edema, Respiratory: Negative for shortness of breath, cough, wheezing, and pleuritic chest pain. 15:00 MS/extremity: Positive for pain. 15:00 All other systems are negative. Exam: 15:00 Constitutional: This is a well developed, well nourished patient who is awake, alert, jmm and in no acute distress. Head/Face: atraumatic. Eyes: EOMI, no conjunctival erythema appreciated ENT: Moist Mucus Membranes Neck: Trachea midline, Supple Chest/axilla: Normal chest wall appearance and motion. Cardiovascular: Regular rate and rhythm. No edema appreciated Respiratory: Normal respirations, no respiratory distress appreciated Abdomen/GI: Non distended, soft Back: Normal ROM Skin: General appearance color normal 15:00 Musculoskeletal/extremity: ROM: Painful abduction appreciated, full radial pulse, full disaster recovery consultant strength appreciated. 15:00 Skin: Appearance: Color: normal in color. 15:00 Neuro: Orientation: is normal, Mentation: is normal, Memory: is normal. 15:00 Psych: Behavior/mood is pleasant, cooperative. Vital Signs: 15:03 BP 139 / 62; Pulse 68; Resp 18; Temp 98.8; Pulse Ox 99% on R/A; Weight 58.51 kg; Height ph 5 ft. 0 in. (152.40 cm); 19:28 BP 129 / 68; Pulse 67; Resp 18; Temp 98.0; Pulse Ox 99% on R/A; ph 15:03 Body Mass Index 25.19 (58.51 kg, 152.40 cm) ph MDM: 15:00 Patient medically screened. [facility] 19:22 Data reviewed: vital signs, nurses notes. Counseling: I had a detailed discussion with jadyn the patient and/or guardian regarding: the historical points, exam findings, and any diagnostic results supporting the discharge/admit diagnosis, radiology results, the need for outpatient follow up, to return to the emergency department if symptoms worsen or persist or if there are any questions or concerns that arise at home. ED course: CT reveals that the hardware is in place and not loosened, does reveal a fracture to the coracoid process. 09/24 15:01 Order name: Shoulder Right (2 View) XRAY [facility] 09/24 18:26 Order name: Shoulder Right Wo Cont; Complete Time: 19:11 EDMS Administered Medications: No medications were administered Disposition Summary: 09/24/21 19:23 Discharge Ordered Location: Home [facility] Condition: Stable [facility] Diagnosis - Coracoid process fracture, initial visit [facility] Followup: [facility] - With: Private Physician - When: 1 - 2 days - Reason: Recheck today's complaints, Continuance of care, Re-evaluation by your physician Discharge Instructions: - Discharge Summary Sheet [facility] - Shoulder Pain [facility] Forms: - Medication Reconciliation Form [facility] - Thank You Letter [facility] - Antibiotic Education [facility] - Prescription Opioid Use [facility] Addendum: 10/01/2021 19:11 Co-signature as Attending Physician, Noah Rodriguez MD. r n Signatures: Dispatcher [employer] EDMS Mickail, George, PA PA jmm Rodriguez, Noah, MD MD rn Alejandra, Twila, RN RN ph Corrections: (The following items were deleted from the chart) 09/24 18:26 18:23 CT RIGHT SHOULDER W/O CONTRAST ordered. EDMS EDMS
[2021-09-24 20:08] VITALS: O2SAT 99
[2021-09-24 20:09] VITALS: BP 129/68; TEMP 98
--- NOTE | 2021-09-25 10:20 | RAD REPORT ---
EXAM DESCRIPTION: RAD - Shoulder Right 2 View - 09/24/2021 3:56 pm CLINICAL HISTORY: Right shoulder pain FINDINGS: No fracture or dislocation is seen. A right shoulder arthroplasty. No evidence of loosening of the prosthesis. Bones are osteoporotic
== END 2021-09-24 19:38 | disposition home or self-care (01) ==
LOC: ER 14:21
DX: S42.131A Displaced fracture of coracoid process, right shoulder, initial encounter for closed fracture (principal); Z96.611 Presence of right artificial shoulder joint; I10 Essential (primary) hypertension; Z88.5 Allergy status to narcotic agent; Z85.3 Personal history of malignant neoplasm of breast
CPT/HCPCS: 73200; 99283

== ENCOUNTER 2021-11-23 10:51 | Day surgery (SDC) | payer OTHER ==
[2021-11-23] MEDS ORDERED: Zoledronic Acid/Mannitol/Water 5 MG/100 ML INFUS.BOT IV ONE (11:00)
[2021-11-23 12:15] VITALS: BP 123/55; TEMP 97.1; O2SAT 98; BMI 24.4
== END 2021-11-23 12:55 | disposition home or self-care (01) ==
LOC: DS 10:51
PROVIDERS: ATTEND Internal Medicine
DX: M81.0 Age-related osteoporosis without current pathological fracture (principal)
CPT/HCPCS: 96365; J3489

== ENCOUNTER 2023-01-14 05:26 | Day surgery (SDC) | payer OTHER ==
[2023-01-10 11:57] LABS: Absolute Lymphocytes (CBC) 3.3 K/uL (0.7-4.9); Hematocrit 35.9 % (36.0-45.0); Lymphocytes % 47.2 % (15.3-44.8); MPV 8.5 fL (7.6-11.3); RBC Red Blood Cell Count 4.48 M/uL (3.86-4.86)
--- NOTE | 2023-01-10 12:01 | RAD REPORT ---
EXAM DESCRIPTION: Paulina Owen And Kathy (2 Views)01/10/2023 11:46 am CLINICAL HISTORY: Preop for knee surgery COMPARISON: None FINDINGS: The lungs appear clear of acute infiltrate. Lungs are hyperaerated. The heart is normal size. Kyphosis Old vertebral fractures. Old rib fractures IMPRESSION: No acute abnormalities displayed
[2023-01-10 12:05] LABS: Protime INR 0.99
[2023-01-10 12:05] LABS: Specific Gravity 1.022 (1.005-1.030); Urine Bacteria None Seen /HPF (<20); Urine Bilirubin NEGATIVE (Negative); Urine Blood Negative (Negative); Urine Clarity Turbid (Clear); Urine Color Yellow (Yellow); Urine Glucose NEGATIVE (Negative); Urine Mucus Slight /HPF (None Seen); Urine Protein 1+ (Negative); Urine RBC <5 /HPF (None Seen); Urine Urobilinogen Normal (Normal)
[2023-01-10 12:16] LABS: Albumin 3.8 g/dL (3.4-5.0); Bilirubin Total 0.4 mg/dL (0.2-1.0); Potassium 3.7 mEq/L (3.5-5.1); Protein, Total 7.9 g/dL (6.4-8.2)
[2023-01-14] MEDS ORDERED: CEFAZOLIN SODIUM 2 GM/VIAL ONE (05:56)
[2023-01-14] MEDS ORDERED: CELECOXIB 100 MG CAPSULE ONE (05:57)
[2023-01-14] MEDS ORDERED: GABAPENTIN 100 MG CAP ONE (05:57)
[2023-01-14] MEDS ORDERED: Ringers Lactate 1,000 ML IV ONE ×2 (05:58→09:04)
[2023-01-14] MEDS ORDERED: ACETAMINOPHEN 500 MG TAB ONE (05:58)
[2023-01-14] MEDS ORDERED: Oxycodone HCl/Acetaminophen 1 TAB TAB ONE (05:58)
[2023-01-14] MEDS ORDERED: EPINEPHRINE/PF 1 MG/ML AMP ONE (06:13)
[2023-01-14] MEDS ORDERED: FENTANYL CITR 100 MCG/2 ML ONE (06:13)
[2023-01-14] MEDS ORDERED: propofoL 200 MG/20 ML VIAL IV ONE (06:13)
[2023-01-14] MEDS ORDERED: LIDOCAINE 1% MPF 5 ML VIAL ONE (06:13)
[2023-01-14] MEDS ORDERED: dexAMETHasone 10 MG/ML VIAL ONE (06:13)
[2023-01-14] MEDS ORDERED: BUPIVACAINE 0.25% PF 30 ML VIAL ONE (06:14)
[2023-01-14] MEDS ORDERED: HYDROMORPHONE HCL 1 MG/ML INJ ONE (07:04)
[2023-01-14] MEDS ORDERED: propofoL 1,000 MG/100 ML VIAL IV ONE (07:05)
[2023-01-14] MEDS ORDERED: DEXMEDETOMIDINE HCL 200 MCG/2 ML VIAL ONE (07:05)
[2023-01-14] MEDS ORDERED: MAGNESIUM SULF IV ONE (07:14)
[2023-01-14] MEDS ORDERED: LIDOCAINE 2% MPF 5 ML VIAL ONE ×2 (07:18→07:36)
[2023-01-14] MEDS ORDERED: KETAMINE HCL IN 0.9 % NACL 50 MG/5 ML SYRINGE IV ONE (07:18)
[2023-01-14] MEDS ORDERED: KETOROLAC 30 MG/ML INJ ONE (07:18)
[2023-01-14] MEDS: TRANEXAMIC ACID 1,000 MG/10 ML VIAL IV ONE ×2 (07:40→08:40)
[2023-01-14] MEDS ORDERED: NS 0.9% VIAL 20 ML ONE (07:48)
[2023-01-14] MEDS ORDERED: NS 0.9% VIAL 10 ML ONE (08:39)
[2023-01-14] MEDS ORDERED: ONDANSETRON 4 MG/2 ML VIAL ONE (09:09)
[2023-01-14] MEDS ORDERED: ONDANSETRON 4 MG/2 ML VIAL IV PRN (09:11)
[2023-01-14] MEDS ORDERED: DOCUSATE NA 100 MG CAP PO PRN (09:11)
--- NOTE | 2023-01-14 09:16 | P.BOP ---
Preoperative diagnosis: right knee arthritis Postoperative diagnosis: same Primary procedure: right total knee arthoplasty Estimated blood loss: 100 Anesthesia: General Complications: None Transferred to: Recovery Room Condition: Good
--- NOTE | 2023-01-14 10:14 | OP ---
Date of Procedure: 01/14/2023 Surgeon: Arnie Herrera MD Preoperative Diagnosis: Right knee arthritis. Postoperative Diagnosis: Right knee arthritis. Procedure: Right total knee arthroplasty using the [employer] Vanguard system. Estimated Blood Loss: 100 cc. Complications: There were no complications. Indications For Operation: Ms. Amor is an 87-year-old female, who has been troubled with right kn ee arthritis for a number of years. This persisted despite conservative measures and the patient has had a total knee arthroplasty in the past as well as other arthroplasties and in my office says that she would like to have this done. She is aware of her advanced age, but says that she was very acti ve and strongly desires total knee arthroplasty. Risks, benefits, and alternatives of this particula r procedure again discussed with her. She states she understands things as presented and wishes to p roceed. Description Of Procedure: The patient was taken to the operating room, placed in supine position. G eneral anesthesia was easily obtained by staff. Following this, a well-padded tourniquet was placed on the superior right thigh. Right lower extremity was then prepped and draped in the usual sterile fashion for arthroplasty. The leg was then elevated and gently exsanguinated using Frederic wrap. The kn ee was bent. Tourniquet was raised. A standard anterior incision was taken down carefully through t he skin and soft tissues with appropriate level being obtained. This was then exposed in the extenso r mechanism, which was then divided by a standard medial parapatellar arthrotomy. After this, the me dial meniscus was debrided. The patella was everted. Some fat pad was removed. The lateral meniscu s was removed. This allowed for good visualization of the femur. The ACL was removed and the intram edullary alignment guide was placed without difficulty. After this, a distal cut was performed. It was then sized to a size 65. The appropriate femoral block was then placed. The remainder of the fe moral cuts were made without any notching. After this, attention was then turned to the tibia and it was cut in standard fashion as this was a PS component with care made not to obtain excessive slope. After this, the trial femur and trial tibia were then placed and the knee was brought to extension. The patella was calipered and then cut and trialed. Patellar button was placed. The knee was brou ght through a full range of motion and appears to be stable in varus and valgus stress and well ke cielo with excellent tracking of the patella. Decision was made to continue and the box was then cut. All the surfaces were then prepped for cementation and the tibia was punched. After this, all the t rial components were placed with the exception of the tibial polyethylene, which was continued as a t rial until the cement was hardened. After cement was hardened, it was brought through full range of motion. The patella appears to glide well without excessive pressure and appears to be well balanced and full flexion extension. The final polyethylene is selected and it was then placed in standard f ashion with a locking bar. The wound was again copiously irrigated. Care being taken to remove any adherent cement and the extensor mechanism was then closed using Ethibond sutures. This was followed by irrigation and closure of skin using Vicryl followed by theodore. The patient was then placed in a very well-padded sterile dressing, awakened, and taken to the recovery room. /SUSAN Voice ID: [id number] Report ID: [id number]
[2023-01-14 13:13] VITALS: O2SAT 98
[2023-01-14] MEDS ORDERED: PROMETHAZINE INJ 25 MG/ML AMP ONE (13:53)
[2023-01-14] MEDS: CEFAZOLIN 1 GM in NA CHLORIDE 0.9% 50 ML IVPB SCH (17:00)
[2023-01-14 17:11] VITALS: BMI 23.8
[2023-01-15] MEDS: CEFAZOLIN 1 GM in NA CHLORIDE 0.9% 50 ML IVPB SCH ×2 (01:00→09:12)
[2023-01-15 04:39] LABS: Hematocrit 29.2 % (36.0-45.0)
[2023-01-15] MEDS: ENOXAPARIN 30 MG/0.3 ML SQ SCH ×2 (05:10→17:20)
[2023-01-15] MEDS ORDERED: MAGNESIUM HYDROXIDE 8% 30 ML PO PRN (08:00)
[2023-01-15] MEDS: DOCUSATE NA 100 MG CAP PO SCH (09:13)
[2023-01-16] MEDS: HYDROCODONE/APAP 7.5/325 MG TAB PO PRN ×2 (03:17→09:03)
[2023-01-16 03:57] LABS: Hematocrit 27.5 % (36.0-45.0)
[2023-01-16] MEDS: ENOXAPARIN 30 MG/0.3 ML SQ SCH (06:56)
[2023-01-16] MEDS ORDERED: FE SULF/FA/VIT B COMP & C TAB PO SCH (08:00)
[2023-01-16] MEDS: DOCUSATE NA 100 MG CAP PO SCH (09:02)
[2023-01-16 09:08] VITALS: BP 112/56; TEMP 98.1
--- NOTE | 2023-01-17 01:33 | CON ---
Date of Consultation: 01/14/2023 Reason For Consultation: Medical management. History Of Present Illness: This is an 87-year-old very pleasant female patient who had right knee replacement surgery done by Dr. Herrera, and surgery was done this morning. After the surgery, patient was admitted to the hospital and medical consultation was requested for medical management. When I saw her this evening. She was lying in bed, not in any distress. Denies any complaints of any knee pain. No chest pain, shortness of breath, nausea, vomiting. No abdominal pain. The patient was feeling very comfortable and did not report any complaints at all. Allergies: CLARITHROMYCIN, DETAILS UNKNOWN. Medications: Current medication list reviewed, and her outpatient medication list is as below: 1. Atorvastatin 20 mg daily at bedtime. 2. Amlodipine 5 mg daily at bedtime. 3. Aspirin 81 mg daily. 4. Caltrate plus D 1 tablet 2 times a day. 5. Clopidogrel 75 mg daily. 6. Famotidine 40 mg daily at bedtime. 7. Mesalamine 1.2 g, she takes 1 tablet 2 times a day. 8. Bystolic 5 mg daily. 9. Vitamin B12, 1 mg daily. Review of Systems: Musculoskeletal: Knee pain and back pain, which is chronic for her. All other systems reviewed and negative. Past Medical History: Significant for TIA in August 2020, hypothyroidism, hypertension, hyperlipidemia, gastroesophageal reflux disease, hiatal hernia, diverticulosis, osteoarthritis at multiple sites, ulcerative colitis, left breast cancer, compression fracture of spine, osteoporosis, and hyperkalemia in the past. Past Surgical History: Significant for cataract surgery, tonsillectomy, left breast lumpectomy due to breast cancer, cholecystectomy, appendectomy, tubal ligation, kyphoplasty in 2013 and September 04, 2021. Shoulder surgery, April 19, 2020. Hip and knee surgery in the past. Family History: Parents . Father had stroke and siblings with myocardial infarction. Social History: Negative for smoking. Use of alcohol rarely, glass of wine. Physical Examination: Vital Signs: Height 5 feet, weight 122 pounds, temperature 98.2, pulse 71, respiratory rate 16, blood pressure 138/67, oxygen saturation 98%. General: Awake, alert, oriented, not in distress. HEENT: Head atraumatic, normocephalic. Conjunctivae nonerythematous. Sclerae white. Mouth, no thrush or edema noted. Ears/Nose, no mass, lesion, discharge noted. Neck: Supple. No JVD, lymph nodes, bruit, thyromegaly noted. Lungs: Bilateral good equal air entry. Clear to auscultation. No rhonchi. No rales. Heart: Normal heart sounds, no murmur or gallop. Abdomen: Soft, bowel sounds normal. No guarding, rigidity, tenderness, mass, hepatosplenomegaly, distention, or bruit noted. Extremities: Right knee has surgical dressing present, and right foot toes have normal color and normal capillary return. Skin: No rash, ulcer, cellulitis. Lymphatics: No lymph node enlargement in neck, supraclavicular, infraclavicular region. Neuro: No focal neurological deficit. Chest: Unremarkable. External Genitalia: Deferred. Rectal: Deferred. Laboratory Data: Her CBC from 01/10/2023 shows white count 7, hemoglobin 11.7, platelets 312. Today's hemoglobin is 9.7 after surgery. Chemistry from 01/10/2023 shows sodium 135, potassium 3.7, chloride 105, bicarbonate 26, BUN 14, creatinine 0.80, glucose 94. Liver function tests are unremarkable. Chest x-ray from 01/10/2023 was negative for any acute changes. Impression: 1. Hypertension. 2. Hyperlipidemia. 3. Acute blood loss anemia. 4. Osteoarthritis, multiple sites. 5. Ulcerative colitis. 6. Diverticulosis. 7. Gastroesophageal reflux disease. 8. Left breast cancer. 9. Osteoporosis. 10. Hypothyroidism. Plan: The patient was admitted to medical floor after her right knee surgery. Currently, she is stable. Vital signs reviewed. No need to start any antihypertensive medication. We will continue to monitor her blood pressure, and at appropriate time, we will start her antihypertensive medication. For her hyperlipidemia, we will start her statin therapy. The patient is on aspirin and Plavix at home. While in the hospital, she was getting DVT prophylaxis with Lovenox which we will continue that right now because risk of DVT is high at this point after knee surgery, so we will continue Lovenox, and we will not start Plavix, but we will add small-dose aspirin 81 mg daily while patient is on DVT prophylaxis with Lovenox. We will continue her mesalamine for her ulcerative colitis, follow up on hemoglobin, at this point no need for blood transfusion. I will see her tomorrow for followup. KATT/MODL Voice ID: [id number] Report ID: [id number] MTDD
--- NOTE | 2023-01-18 16:42 | PN ---
Date of Progress Note: 01/16/2023 Subjective: The patient was seen this morning for followup. She was lying in bed, not in any distre ss. Denies any chest pain, shortness of breath. No nausea, no vomiting. She is having some knee pa in, but it is controlled with the pain medication. Objective: Vital Signs: Reviewed. HEENT: Unremarkable. Lungs: Clear to auscultation. Heart: Sounds normal. Abdomen: Soft. Bowel sounds normal. No guarding, rigidity, tenderness, distention. Extremities: No leg edema. Laboratory Data: Reviewed. Hemoglobin is 9.1. Impression: 1.Acute blood loss anemia. 2.Hypertension. 3.Hyperlipidemia. 4.Osteoarthritis, multiple sites. Plan: The patient's hemoglobin is lower than before, but no need for any blood transfusion. We will continue to monitor that. Continue current pain medication. The patient will be discharged from id dical floor today and she will go to rehab floor and I will continue to look after her on the rehab f moisés. KATT/MODL Voice ID: [id number] Report ID: [id number]
== END 2023-01-16 10:59 ==
LOC: OR 05:26 → 2ND 13:21 → OR 01-16 12:19
PROVIDERS: ATTEND Orthopaedic Surgery
PROC: 0SRC069 Replacement of Right Knee Joint with Oxidized Zirconium on Polyethylene Synthetic Substitute, Cemented, Open Approach (ICD-10-PCS; principal; 2023-01-14 07:00)
DX: M17.11 Unilateral primary osteoarthritis, right knee (principal); I10 Essential (primary) hypertension
CPT/HCPCS: 36415; 71046; 80053; 81001; 85014; 85018; 85025; 85610; 85730; 86850; 86900; 86901; 88304; 88311; 94010; 97110; 97139; 97530; A4216; C1776; J0171; J1100; J1170; J1650; J2001; J2405; J2550; J2704; J3010; J3475; J7120

== ENCOUNTER 2023-01-16 10:28 | Inpatient (IN) | payer OTHER ==
--- OUTSIDE RECORDS SUMMARY | 2023-01-16 11:29 | XMS REPORT | Continuity of Care Document ---
:1935 Author Organization [facility] t Address [address] [facility] [address] [place] [address] Care Team Providers Name Role Phone Asked, No Pcp Primary Care Physician Unavailable Phan Fong Attending Clinician Unavailable HOLDEN CARRASQUILLO Attending Clinician Unavailable KNOW, DOES_NOT Admitting Clinician Unavailable Payers Payer Name Policy Type Policy Number Effective Date Expiration Date S ource Problems This patient has no known problems. Allergies, Adverse Reactions, Alerts Allergy Allergy Status Severity Reaction(s) Onset Inactive Treating Comm ents Source Name Type Date Date Clinician No Known DA Active U 2019-06 [facility] 0[facility]23 [place] 00:[facility]: [facility] 00 [facility] No Known DA Active U 2019-06 [facility]ie 0[facility]23 [place] [facility] Social History Social Habit Start Date Stop Date Quantity Comments Source [facility] Alcohol intake 2021-02-21 2021-02-21 Ex-drinker [facility] 00:00:00 00:00:00 (finding) Hospital History of Social 2021-02-21 2021-02-[address] function 00:00:00 00:00:00 Hospital Tobacco use and 2021-01-04 2021-01-04 Smokeless [facility] exposure 00:00:00 00:00:00 tobacco non-user Hospital Sex Assigned At [birth year] [facility] 00:[facility]00 [facility] Smoking Status Start Date Stop Date Source Never smoked tobacco [facility] Medications Ordered Filled Start Stop Current Ordering Indication Dosage Frequency Signature Comments Components Source Medication Medication Date Date Medication? Clinician (SIG) Name Name nebivoloL Yes 5mg QD Take 5 mg [facility] (BYSTOLIC) 7-[address] 5 MG tablet 13:39: daily. Hosp ricardo 39 l clopidogreL Yes 75mg QD Take 75 mg [facility] (PLAVIX) 75 7-[address] mg tablet 13:39: daily. Hospit a 39 l mesalamine Yes 1200mg QD Take 1,200 [facility] (LIALDA) 7-[address] 1.2 gram EC 13:39: mouth Hospi ta tablet 39 daily with l breakfast. amLODIPine- Yes 1{capsu QD Take 1 M [facility]i benazepriL 7-15 le} capsule by st (LOTREL) 13:39: [facility]osp[facility] 10-20 mg 39 daily. l per capsule atorvastati Yes 10mg QD Take 10 mg [facility] n (LIPITOR) 7-[address] 10 mg 13:39: daily. Hospita tablet 39 l omeprazole Yes 40mg QD Take 40 mg M [facility] (PriLOSEC) 7-[address] 40 MG 13:39: daily. Hospita capsule 38 l Procedures Procedure Date / Time Performed Performing Clinician Chevy chambers [id number] 2020-04-24 00:00:00 [facility] [id number] 2020-04-24 00:00:00 [facility] [id number] 2020-04-24 00:00:00 [facility] [id number] 2020-04-24 00:00:00 [facility] [id number] 2020-04-19 00:00:00 [facility] [id number] 2020-04-19 00:00:00 [facility] Plan of Care Planned Activity Planned Date Details Comments Source Future Scheduled 2023-01-16 SHINGLES VACCINES (1 Met [facility] Test 11:28:26 of 2) [code = SHINGLES VACCINES (1 of 2)] Future Scheduled 2023-01-16 65+ PNEUMOCOCCAL [facility] Test 11:28:26 VACCINE (1 - PCV) [code = 65+ PNEUMOCOCCAL VACCINE (1 - PCV)] Future Scheduled 2023-01-16 COVID-19 VACCINE (3 - [facility] Test 11:28:26 Pfizer series) [code = COVID-19 VACCINE (3 - Pfizer series)] Future Scheduled 2023-01-16 INFLUENZA VACCINE Method [facility] Test 11:28:26 [code = INFLUENZA VACCINE] Encounters Start End Encounter Admission Attending Care Care Encounter Source Date/Time Date/Time Type Type Clinicians Facility Department ID 2020-04-19 Inpatient Ajit [facility] DA[facility] [id number] [facility] 07:30:00 Phan Hadley [facility] 2021-02-14 2021-02-14 Outpatient [facility] [id number] 201 [place] 00:00:00 00:00:00 HOLDEN [address] 2021-02-14 2021-02-14 Outpatient [facility] [id number] [place] 00:00:00 00:00:00 HOLDEN [address] 2021-01-04 2021-01-04 Outpatient [facility] [id number] 616 [place] 00:00:00 00:00:[address] 2020-04-14 2020-04-14 [id number] [facility] 09:00:00 09:00:00 Phan Carter [facility] Results Test Description Test Time Test Comments Results Result Comments Source SURGICAL SPECIMENS 2020-04-26 11:43:00 Test Item Value Reference Range Interpretation Comme nts SURGICAL RUN DATE: SPECIMENS 04/26/20 [place] [facility] - LAB PAGE 1 RUN TIME: 1143 Specimen Inquiry RUN USER: INTERFACE (test code PATIENT: = SURG) ISAIAH FAIR LOC: P.5N POD B U #: [id number] AGE/SX: 84/F ROOM: [facility] RE04/19/20REG DR: Phan Fong : 33 BED: 1 DIS: 04/25/20 STATUS: DIS IN TLOC: SPEC #: [id number] RECD: 04/24/20 STATUS: YAQUELIN REQ #: [id number] RITESH: 04/24/[address] [facility] [address]: Phan Fong MD ENT ERED: 04/24/20 SP TYPE: SURG OTHR DR: DOES_NOT KNOW Rony Donohue Jr, MDORDERED: PATHGM4/3, PATH S PEC, H E STAIN/3 HISTOLOGY: TISSUE ID BLK PCS JUANITA LEV / PROCEDURE DISPOSITION ____ ___ ___ ___ ___ DUODENUM A 1 3 GASTRIC BIOPSY B 1 3 ESOPHAG US BX C 1 3 TISSUES: A. DUODENUM BIOPSY - Duodenum Bx B. GASTRIC BIOPSY - Gastric Bx C. ESOPHAGUS BIOP SY - Esophagus Bx ADDITIONAL TESTS ASR DISCLAIMER FOR IMMUNOHISTOCHEMISTRY: This test was developed and its performance characteristics determined by the [facility]. It has not been cleared or approved by the US Food and Drug Administration. The FDA has determined that such clearan ce or approval is not necessary. The test is used for clinical purposes. It should not be regarded as in vestigational or for research. [facility] is certified under CLIA-88 (Clinical Labo ratory Improvement Amendment of 1988) as qualified to perform high-complexity clinical lab oratory testing. All controls show appropriate reactivity. CLINICAL HISTORY Nausea, Anorexia FINAL DIAGN OSIS A. DUODENUM, BIOPSY: - SMALL BOWEL MUCOSA WITH NO DIAGNOSTIC ABNORMALITY - NO PARASITE, GRANULOMA, DYSPLASIA, OR MALIGNANCY IS IDENTIFIED B. STOMACH, BIOPSY: - ANTRAL MUCOSA WITH REACTIVE GASTROPATHY AND MILD FOCAL ACUTE ACTIVITY - NEGATIVE FOR HELICOBACTER PYLORI BY IMMUNOHISTOCHEMISTRY - NO INTESTINAL METAPLASIA, DYSPLASIA, OR MALIGNANCY IS IDENTIFIED C. ESOPHAGUS, BIOPSY: - SQUAMOUS MUCOSA WITH REFLUX ES OPHAGITIS CONTINUED ON NEXT PAGE RUN DATE: 04/26/20 [facility] - LAB PAGE 2 RUN TIME: 1143 Specimen Inquiry RUN USER: INTERFACE SPEC #: [id number] PATIENT: ISAIAH FAIR RUTH #[id number] (Continued) FINAL DIAGNOSIS (Continued) - NO INTESTINAL METAPLASIA, DYSPLASIA, OR MALIGNANCY IS IDENTIFIED CPT: 51884 x3, 04898 GROSS DESCRI PTION A. The specimen is received in formalin labeled with the patient's name, medical record number, and "duodenum biopsy". The specimen consists of six francisco-pink tissue fragments, 0.2 cm each, subm itted in "A". B. The specimen is received in formalin labeled with the patient's name, medical tanya rd number, and "gastric biopsy". The specimen consists of four tissue fragments ranging from 0.2 t o 0.3 cm, submitted in "B". C. The specimen is received in formalin labeled with the patient's name, [facility] record number, and "esophagus biopsy". The specimen consists of six tissue fragments, 0.1 to 0.2 cm, submitted in "C". CM/ph MICROSCOPIC DESCRIPTION Performed. Signed SIGNATURE ON FILE Cristiane Valente MD 04/26/20 1143 END OF REPORT - US ABDOMEN [id number] 16:28:00 [facility] : 1935 Sex: FPatient Name: ISAIAH FAIR Unit No: [id number] EXAMS: CPT CODE: [id number] US ABDOMEN COMPLETE 90983 EXAM: ABDOMINAL ULTRASOUND COMPLETE INDICATION: nausea LOCATION CODE: A 1 COMPARISON:None available. TECHNIQUE: Grayscale and limited color sonographic [...] renal cysts, otherwise unremarkable abdominal ultrasound. Name: ISAIAH FAIR [facility] Phys: Julio Saenz MD [address] : 1935 Age: 84 Sex: F [place] [place] [id number] Loc: P.0581 1 Exam Date: 04/24/2020 Status: ADM IN PH: FAX: PAGE 1 Signed Report (CONTINUED) Patient Name: ISAIAH FAIR Unit No: [id number] EXAMS: CPT CODE: [id number] US ABDOMEN COMPLETE 10615 (Continued) at 1628 Reported and signed by: ALLYSON ORNELAS M.D. CC: Phan Fong MD; Julio Duran MD Technologist: Caitlin Cordova Probe: Trscr Dt/Tm: 04/24/2020 (9908) by:[email or web address] Printed Date/Time: 04/24/2020 (1056) Name: ISAIAH FAIR [facility] Phys: Shonda Saenz MD [address] : 1935 Age: 84 Sex: [place] [address] Loc: P.0581 1 Exam Date: 04/24/2020 Status: ADM IN PH: FAX: PAGE 2 Signed ReportCOMPREHENSIVE METABOLIC [id number] 13:53:00 Test Item Value Reference Range Interpretation [...] 32-104 N PHOSPHATASE (test code = ALKP) [id number] 13:51:00 Test Item Value Reference Range Interpretation Comments PREALBUMIN (test code = PREALB) 10.9 MG/ML 15-42 L CBC W/AUTO [id number] 13:17:00 Test Item Value Reference Range Interpretation [...] 0.07 x10 3/uL 0.0-0.20 N BASIC METABOLIC [id number] 05:32:00 Test Item Value Reference Range Interpretation [...] mg/dL 8.8-10.2 L = CA) CBC W/AUTO [id number] 05:04:00 Test Item Value Reference Range Interpretation [...] 3/uL 0.0-0.20 N - XR CHEST 1 [id number] 07:40:00 [facility] : 1935 Sex: FPatient Name: ISAIAH FAIR Unit No: [id number] EXAMS: CPT CODE: [id number] XR CHEST 1 V 83677 EXAMINATION: - XR CHEST 1 V HISTORY: Preop COMPARISON: None. LOCATION CODE: C3 FINDINGS: Single frontal view of the chest is submitted for evaluation. Areas of mild scar are present in both lungs. The cardiac silhouette, mediastinum and pulmonary vasculature are unremarkable. Atheromatous plaquing is seen in the aorta and pronounced osteoarthritic changes are seen in the shoulders. Kyphoplasty changes are noted in the lower thoracic/upper lumbar spine. IMPRESSION: No acute radiographic abnormality at 0740 Reported and signed by: JUDY ANTON M.D. CC: Phan Fong MD Technologist: Deepak Salas Time: DAP (Gy m2):Air Kerma (mGy): Trscr Dt/Tm: 04/19/2020 (0740) by:[email or web address] Printed Date/Time: 04/19/2020 (9643) Name: ISAIAH FAIR [facility] Phys: Phan Mckeon [address] : 1935 Age: 84 Sex: [place] [address] Loc: P.SHA 01 Exam Date: 04/19/2020 Status: ADM IN PH: FAX: PAGE 1 Signed ReportCBC W/AUTO [id number] 07:29:00 Test Item Value Reference Range Interpretation [...] 0.07 x10 3/uL 0.0-0.20 N COMPREHENSIVE METABOLIC [id number] 07:22:00 Test Item Value Reference Range Interpretation [...] (test code = ALKP) Novel Coronavirus 2019 [id number] 10:12:00 Test Item Value Reference Range Interpretation Comments Novel Coronavirus Not Detected Not Detected Testing wa s performed 2018 Inhouse (test using the Aptima code = COVNONPUI) SARS-CoV-2 assay.This nucleic acid amplification t est was developed and itsperformance characteristics determined by [facility]. Nucleic acid amplification t ests include [...] refugio gnosis of COVID-19 infect ion under zuzsals498(b)(1 ) of the Act, 21 U.S.C. 360bbb-3(b) [...] detected) resul t in this assay.Performed At: [facility] [address] [id number] jill Ashford MD Ph:[phone] Notes Date/Time Note Provider Source 2020-04-25 06:39:00-00:00 [id number] [facility] [address] [place] [address] PATIENT NAME: ISAIAH FAIR ADMIT DATE: 04/19/20 ACCOUNT NO: [id number] ROOM NO: P.0581 AGE: 84 REPORT TYPE: PROGRESS NOTE SEX: F ADMITTING PHYSICIAN:Phan Fong MD ATTENDING PHYSICIAN:Phan Fong MD DATE: 04/25/2020 PROGRESS NOTE DATE OF EVALUATION: 04/25/2020. PROBLEM: Nausea and excessive burping. SUBJECTIVE: The patient indicates she is having intermittent episodes of nausea, as well as burping. She is not having an y discrete pain. She has not had any actual vomiting. OBJECTIVE: VITAL SIGNS: Temperature is 36.9, pulse of 73, r espirations of 15, blood pressure is 120/61. GENERAL: The patient is responsive, alert, in no acute distress. ABDOMEN: Soft, essentially nontender. No guardin g. Upper endoscopy revealed a 12 cm hiatal hernia and antral gastritis. Histology is pending. PLAN: DIAGNOSTIC: Follow up path report. THERAPEUTIC: Give a trial of low-dose metoclopramide at 5 mg p.o. before meals. PATIENT EDUCATION: The patient advised of the ab ove. Dictated By: Rony Donohue Jr, MD WT: PN:SAMMY/DARCI/DANIELLE Conf#: [id number]/DID#: [id number] Authenticated and Edited by Rony rae MD On 04/26/20 7:49:56 AM at 0753 PATIENT NAME: ISAIAH FAIR ACCOUNT #: B [id number] 2020-04-24 08:13:00-00:00 [id number] [address] PATIENT NAME: ISAIAH FAIR ADMIT DATE: 04/19/20 ACCOUNT NO: [id number] ROOM NO: P.0572 AGE: 84 REPORT TYPE: ENDOSCOPY REPORT SEX: F ADMITTING PHYSICIAN:Phan Fong MD ATTENDING PHYSICIAN:Phan Fong MD [facility] G[facility] Patient Name: Zuleyma Vang Attending MD: Alexa Donohue MD Procedure Date: 04/24/2020 8:13 AM 8 Date of : 10/30 Admit Type: Inpatient Age: 84 Room: Room 1 Gender: Female Note Status: Finalized Procedure: Upper GI endoscopy Pre Procedure Diagnosis: Dysphagia, Nausea, Weig ht loss Assistants: Rony Donohue MD, Joselin Borwn RN (Nurse), Bernardo Giles, Washing Machine Installer, Julito Solo MD Referring MD: MD Julio Yanes MD Anesthesia: General Anesthesia Introduction: This is an 84 year old female. Procedure: Pre-Anesthesia Assessment: - Pre-procedure physical examination revealed n o contraindications to sedation. - ASA Grade Assessment: II - A patient with mil d systemic disease. - After reviewing the risks and benefits, the patient was deemed in satisfactory condition to undergo the procedure. - The anesthesia plan was to use general anesth esia. The benefits, risks, and alternatives to the procedure were discussed and informed consent w as obtained from the patient. I've assesed the pat ient on this date and reviewed the medical history, drug history, and previous anesthesia experience. Af ter obtaining informed consent, the scope was passe d under direct vision. Throughout the procedure, the patient's blood pressure, pulse, and oxygen saturations were monitored continuously.s were monitored continuously. The Endoscope was introduced through the mouth, and advanced to t he second part of duodenum. The upper GI endoscopy was accomplished without difficulty. The patient tolerated the procedure well. Post Procedure Findings: PATIENT NAME: ISAIAH FAIR RUTH ACCOUNT #: B [id number] The examined esophagus was normal. Biopsies wer e taken with a cold forceps for histology. Estimated blood loss was minimal. A 12 cm hiatal hernia was present with Z-line a t 33 cm from incisors. Diffuse mild inflammation characterized by andrea estion (edema) and erythema was found in the gastric antrum. Biops ies were taken with a cold forceps for histology. Biopsies were taken with a cold forceps for Helicobacter pylori testing using a rapid ureas e test. Estimated blood loss was minimal. The exam of the stomach was otherwise normal. The duodenal bulb and second portion of the duo denum were normal. Biopsies were taken with a cold forceps for his tology. Estimated blood loss was minimal. Complications: No immediate complications. Estim ated blood loss: Minimal. Estimated Blood Loss: Post Procedure Diagnosis: - Normal esophagus. Bi opsied. - 10 cm hiatal hernia. - Acute gastritis. Biopsied. - Normal duodenal bulb and second portion of th e duodenum. Biopsied. Recommendation: - Low sodium diet. - Await pathology results. Rony Donohue MD Rony Donohue MD 04/24/2020 8:53:02 AM This report has been signed electronically. Number of Addenda: 0 Note Initiated On: 04/24/2020 8:13 AM Procedure Date: 04/24/2020 8:13:19 AM Provation {[id number]}.pdf ProVation FT PDF at 0853 PATIENT NAME: ISAIAH FAIR ACCOUNT #: B [id number] 2020-04-24 06:03:00-00:00 2011-8435 [facility] [address] [place] [address] PATIENT NAME: ISAIAH FAIR ADMIT DATE: 04/19/20 ACCOUNT NO: [id number] ROOM NO: P.0572 AGE: 84 REPORT TYPE: CONSULTATION SEX: F ADMITTING PHYSICIAN:Phan Fong MD ATTENDING PHYSICIAN:Phan Fong MD CONSULTATION DATE: 04/24/2020 CONSULTING PHYSICIAN: Rony Donohue Jr, MD CONSULTATION REPORT CONCLUSIONS: 1. Anorexia, nausea, intermittent reflux and mil d dysphagia, etiology uncertain. Rule out reflux esophagitis, rule out peptic ulcer disease with or without H. pylori infection. Rule out occult gas tric tumor. 2. Ulcerative colitis, controlled with use of Li óscar. Last colonoscopy in about 2017 apparently unremarkable. RECOMMENDATIONS: Esophagogastroduodenoscopy. DISCUSSION: An 84-year-old female who is seen fo r evaluation of nausea, anorexia and intermittent reflux and occasional episodes of dysphagia. The patient indicates that these symptoms brian ve been present for a number of months and she has had 8 to 10-pound weight loss over t he past year. She has periods of fairly intense nausea, bu t apparently no episodes of vomiting. She does feel there has been decrease in her appetite with the se developments. The patient has not had any passage of any black or bloody s tools. She has a sensation of food being slow going down; however, she does no t describe any discrete sensation of food getting stuck. The patient has been on omeprazole for acid reflux disease for a number of years and recently decreased to every other day. She apparently has never had an upper endoscopy. The patient has a history of ulcerative colitis dating back to 2003. She has been on Lialda, which is maintaining her stool f requency down from 1 to 2 per day only as a general rule, though occasionally may increase. She had not had any history of dysplasia, th ough she does indicate she had a colon polyp on her last colonoscopy in 2018. REVIEW OF SYSTEMS: HEENT: Some mild impaired vision in her left eye , etiology uncertain. Occasional migraine headaches. CARDIOPULMONARY: No chest pain. PAST MEDICAL HISTORY AND JOSUÉ GICAL HISTORY: Has included essential hypertension. Hyperlipidemia. Ulcerative colitis since 2003, presently on mesalamine therapy with Lialda. Severe glenohum eral joint arthritis on the right with rotator cuff tear undergoing surgical repair March 2020. Hi story of gastroesophageal reflux disease. Scoliosis. Degenerative joint di sease. Skin cancer in left PATIENT NAME: ISAIAH FAIR RUTH ACCOUNT #: B [id number] leg 2018. Status post tonsillectomy. Status post open cholecystectomy. Left partial mastectomy. Bunionectomy, left f oot tendon rupture, requiring surgery, left wrist surgery, left kne e replacement, spinal stenosis, managed with surgery and also has had kyphoplasty. Bilateral cataract surgery. History of migraine headaches. ALLERGIES: NONE KNOWN. HABITS: The patient denies any cigarette use. Al cohol is only rare occasions. MEDICATIONS: Prior to hospitalization reportedly included Lialda 1.2 two tablets a day, omeprazole 40 mg every other day, amlodipine 5 mg once a day, aspirin 81 mg a day, Bystolic 5 mg a day, calciu m plus vitamin D once a day, multivitamin once a day. PHYSICAL EXAMINATION: VITAL SIGNS: Height is 5 feet, weight is 64.9 ki lograms. Temperature is 36.8, pulse of 71, respirations of 17, and blood press ure 135/72. GENERAL: The patient is well developed. She is a dequately nourished, no acute distress. SKIN: Moist. LYMPHATICS: No supraclavicular adenopathy. HEENT: Eyes: Pupils are round. The patient is no t icteric. Nose: Nasal septum is in midline. NECK: Supple. No palpable adenopathy. CHEST: Chest wall nontender. LUNGS: No gross wheezing. ABDOMEN: Surgical scars well healed in the upper abdomen. Bowel sounds are present. Abdomen is soft, essentially nontender. There is no palpable mass. Liver and spleen not enlarged. No rebound. No gu arding. EXTREMITIES: Surgical scars well healed. There i s no edema. NEUROLOGIC: The patient is alert and responsive. She is oriented. She has no focal deficit. PERTINENT LABORATORY STUDIES: Reveal H and H of 10.6 and 32.1 with a WBC of 9400. Prealbumin is 10.9. Potassium is 3.7, BUN is 7.5. Creatinine is 0.7. COVID test is negative. Chest x-ray, no acute ch anges. ASSESSMENT: The patient has multiple jocelin ewhat nonspecific and mild symptoms of dysphagia, anorexia, nausea, and progressive dustin ght loss. Question whether or not significant upper GI pathology may be playin g a role contributing to her symptoms. The patient does in light of the chron icity of her reflux symptoms and discomfort. Upper endoscopy would be warrant ed to at least clarify her status and to see if any significant pathology i s present. H. pylori, peptic ulcer disease, occult tumor remain a considerati on. Upper endoscopy has been discussed with the patient, who is in agreement. Thank you letting me to share in the care of mela s patient. We will follow her along with you as needed during hospitalization. Dictated By: Rony Donohue Jr, MD WT: CON:PYAZMIN/DARCI/DANIELLE PATIENT NAME: ISAIAH FAIR ACCOUNT #: B [id number] Conf#: [id number]/DID#: [id number] Authenticated by Rony Donohue MD On 07:02:45 AM at 0703 PATIENT NAME: ISAIAH FAIR ACCOUNT #: B [id number] 2020-04-20 07:32:00-00:00 [id number] [facility] [address] [place] [address] PATIENT NAME: ISAIAH FAIR ADMIT DATE: 04/19/20 ACCOUNT NO: [id number] ROOM NO: P0581 AGE: 84 REPORT TYPE: OPERATIVE REPORT SEX: F ADMITTING PHYSICIAN:Phan Fong MD ATTENDING PHYSICIAN:Phan Fong MD OPERATION DATE: 04/19/2020 PREOPERATIVE DIAGNOSES: 1. Right shoulder severe glenohumeral joint arth ritis. The glenohumeral joint osteoarthritis primary is M19.011. 2. Dpxftq-wx-mgkpp size rotator cuff tear. The r otator cuff tear, ICD-10 code is M75.12. POSTOPERATIVE DIAGNOSES: 1. Right shoulder severe glenohumeral joint arth ritis. The glenohumeral joint osteoarthritis primary is M19.011. 2. Dxcijc-pe-nddwq size rotator cuff tear. The r otator cuff tear, ICD-10 code is M75.12. PROCEDURE PERFORMED: Right t otal shoulder reverse arthroplasty, CPT code 35490. ATTENDING SURGEON: Phan Fong MD. JOB TRACER SURGEON: Dr. Mishra, please note secondary procedure was a biceps tenodesis, open. ANESTHESIA: COMPLICATIONS: None. DRAINS: Medium Hemovac drain. SPECIMENS: None. ESTIMATED BLOOD LOSS: 70 mL. IMPLANTS USED: A BURDEN total shoulder reverse arthroplasty with a 12 mm standard stem, a [address] andard baseplate, a 30 mm and 25 mm baseplate screws and a 6-mm constrained liner with an added space r for length. 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 Based on age, pain le ben, a reverse shoulder instead of a total shoulder was recommended. She is admitted for the same. OPERATION IN DETAIL: This patient was brought to the operating room suite and placed supine on the operating room table. An in terscalene block was given by PATIENT NAME: ISAIAH FAIR ACCOUNT #: B [id number] anesthesia. Then, she was endotracheally intubat ed and induced with general anesthesia. She was placed in the semi-Willson to beach chair position and then the right shoulder and upper extremity was prepp ed and draped in sterile fashion. DuraPrep was then applied after the pre p and drape. A 2 g of Ancef was given IV. The procedure began with a deltopectoral incision, dissecting through skin and subcutaneous tissue to the cephalic vein, which was identified and its tributaries ligated laterally with the vein retr acted medially. The clavipectoral fascia was incised. The pectoralis major superior 1 inch was incised for better access an d then the 3 sisters were identified, dissected out and ligated. The subscapularis was identified an d an incision was made 1 cm medial to its insertion site allowing then disse ction through the capsule and subsequently the shoulder was dislocated . The biceps was tight and a tenodesis was done in the groove with a #2 Ethibond stitch in the groove and the remainder of the biceps tendon was incised includi ng in the glenoid. Once this was done, an oscillating saw was used to remove the head a natomically and then subsequently intramedullary reaming to the 12 mm size was done and a protective cap placed and attention was then turned to the glenoid. Retractors were placed around the glenoid and circu mferential dissection of the labrum and soft tissue was done including moving the small stum p of biceps that remained. The glenoid guide was placed and then gomez bsequently drilling was done with it centered at the inferior lip as well as an inferior tilt about 10 to 15 degrees. Once this was done, the face was reamed followed by the intram edullary post-reaming. The central K-wire was removed, the baseplat e was placed and superior and inferior holes were drilled and the appropriate size scre w, 30 mm superior and 25 mm inferior screws were placed. The patient had the n pulsatile lavage. A glenosphere, 36 mm in diameter was placed in the appropriate rotation and screwed in place. Attention was then turned to the humerus. Appropriate retractors were placed around the humerus and the trial implant and spacers were placed and selected. Following this , the actual implant was placed. The metaphysis diaphysis screw was place d and then the spacers were impacted and the shoulder reduced with t he components as noted in the findings implant section. Once done, stability was noted to be excellent with good mobility. Following this, the subscapularis was repaired with #2 FiberWire stitch in Nestor-Mando stitches with nice securit y. The terminal fibers of the supraspinatus had been excised and had good stab ility noted. Pulsatile lavage followed. A medium Hemovac drain was placed into the shoulder and the deltopectoral interval was approximated with 2-0 Monocryl. The skin was closed with 2-0 Monocryl followed by a 2-0 Prolene subc uticular stitch. A soft dressing was applied and the drain was secured w ith a Tegaderm. The patient's arm was placed in a sling. She was extubated and then transferred to the recovery room in stable condition. There were no complications with the procedure. Dictated By: Phan Fong MD WT: OP:SAMMY/ASTRID/DANIELLE Conf#: [id number]#: [id number] PATIENT NAME: ISAIAH FAIR ACCOUNT #: [id number] Authenticated by Phan Fong MD On 04/28/20 20 09:44:27 AM at 0944 PATIENT NAME: ISAIAH FAIR ACCOUNT #: [id number] 2020-04-14 16:17:00-00:00 [id number] [address] PATIENT NAME: ISAIAH FAIR ADMIT DATE: ACCOUNT NO: [id number] ROOM NO: AGE: 84 REPORT TYPE: eELECTROCARDIOGRAM SEX: F ADMITTING PHYSICIAN: Phan Fong MD ATTENDING PHYSICIAN: Phan Fong MD Order: [id number] Test Reason : PREOP Test Date/Time Stamp: FriApr 14 2020 16:17:58 Blood Pressure : / mmHG Vent. Rate : 077 BPM Atrial Rate : 077 BPM P-R Int : 144 ms QRS Dur : 104 ms QT Int : 404 ms P-R-T Axes : 010 -38 058 degree s QTc Int : 457 ms Normal sinus rhythm Left axis deviation Anterior infarct , age undetermined Abnormal ECG No previous ECGs available Confirmed by MD TITI, TIMOTHY ([id number]) on 04/18 11:28:15 AM Referred By: Phan Fong Confirmed by:TIMOTHY HINSON MD Electronically Signed by Timothy Lewis MD on at 1128 PATIENT NAME: ISAIAH FAIR ACCOUNT #: [id number]
[2023-01-16] MEDS ORDERED: HYDROCODONE/APAP 5/325 MG TAB PO PRN (12:09)
[2023-01-16] MEDS ORDERED: ONDANSETRON 4 MG (ODT) TAB PO PRN ×2 (13:38→17:41)
[2023-01-16] MEDS ORDERED: MAGNESIUM HYDROXIDE 8% 30 ML PO PRN (14:43)
[2023-01-16] MEDS ORDERED: DOCUSATE NA/SENNA CONC 1 TAB PO PRN (16:18)
[2023-01-16] MEDS: ACETAMINOPHEN 500 MG TAB PO PRN (17:41)
[2023-01-16] MEDS: ENOXAPARIN 30 MG/0.3 ML SQ SCH (20:41)
[2023-01-16] MEDS: GABAPENTIN 100 MG CAP PO SCH (20:41)
[2023-01-17 03:34] LABS: Specific Gravity 1.028 (1.005-1.030); Urine Bacteria <20 /HPF (<20); Urine Bilirubin NEGATIVE (Negative); Urine Blood Negative (Negative); Urine Clarity Clear (Clear); Urine Color Yellow (Yellow); Urine Glucose NEGATIVE (Negative); Urine Mucus Slight /HPF (None Seen); Urine Protein TRACE (Negative); Urine RBC <5 /HPF (None Seen); Urine Urobilinogen Normal (Normal)
--- NOTE | 2023-01-17 04:00 | HP ---
Date of Admission: 01/16/2023 Time Of Service: 1:00 p.m. Chief Complaint: I had my right knee replaced after severe pain in my right knee. History Of Present Illness: Ms. Amor is an 87-year-old patient who came to [facility] on 01/14/2023 for right total knee arthroplasty due to severe medically refractory right knee osteoarth ritis, which she has had for a number of years and which has failed conservative treatment. She was evaluated prior to surgery and had lungs without abnormality. Heart was cleared. She did have old v ertebral fractures, old rib fractures identified on imaging. She has comorbid hypertension, dyslipid emia, ulcerative colitis. After right total knee arthroplasty with [employer] system, she was t reated within the [facility] for movement of her knee and she did have complication of severely low hemoglob in and low blood pressure with orthostatic hypotension. Blood pressures dropped from 125/54 to 99/59 . She did have significant pain and actually had narcotic medication yesterday morning and earlier t his morning had another full dose and developed significant nausea and vomiting requiring Zofran 4 mg every 4 hours. Due to her significant need for medical interventions, we will address her nausea, v omiting and her risk of worsening anemia and an infection such as aspiration along with her recent ac tejon knee arthroplasty. She is determined to be an appropriate candidate for inpatient rehabilitation and is therefore admitted to the unit for physical and occupational therapy. Past Medical History: As noted, dyslipidemia, ulcerative colitis, hypertension, osteoarthritis. Past Surgical History: Total hip arthroplasty in 2006, total knee arthroplasty in 2007, and right sh oulder replacement in 2019. X-ray/imaging: On 12/30/2022, lungs appear clear of infiltrates and hyper-aerated. Normal heart siz e. Old vertebral and rib fractures identified. Allergies: TRAMADOL. Medications: Tylenol 500 mg every 6 hours, [place] 5/325 every 6 hours, Colace 100 mg daily, Lovenox 3 0 mg subcutaneous every 12 hours, gabapentin 100 mg twice daily, milk of magnesia 30 mL daily, melato cornelia 3 mg at bedtime, plus one tablet daily, Zofran 4 mg every 4 hours as needed, Senokot-S 2 at bedtime. Family History: Noncontributory. Social History: She lives in independent living. No alcohol, tobacco, or IV drug use. Review of Systems: As noted significant pain in the right knee, now had knee arthroplasty. She has had hip pain, nausea , vomiting, and reports no bowel movement in 5 days. Otherwise, no other positives on systems review . Laboratory Studies: White blood cell count 7.0, hemoglobin 9.1, platelets 312. Sodium 135, potassiu m 3.7, chloride 105, BUN 14, creatinine 0.8, glucose 94, albumin 3.8. AST, ALT, and alkaline phospha tase are normal. Urinalysis; turbid clarity, 1+ protein, otherwise unremarkable. Physical Examination: Vital Signs: Blood pressure 177/78, pulse 82, respiratory rate 16, temperature 97.2, oxygen saturati on 94%. General: Ms. Amor is resting in bed. She does have an emesis bag in front of her. She has had s ome nausea and vomiting earlier. She did receive Zofran and that improved somewhat, but she still is nauseated which is likely due to the narcotic medications she has received earlier today. HEENT: Otherwise normocephalic, atraumatic. Sclerae anicteric. Oropharynx moist. Neck: Supple. Extremities: She does have kyphosis. Otherwise, bandaged right knee with good hemostasis. Neurological: She does not have a focal neurological finding. There is obvious lack of full exertio n. She just had surgery. Pain level is 4. Current Functional Status: Eating independent; oral hygiene independent; bathing, moderate assistanc e; lower body dressing, moderate assistance. Rolling doxdj-gl-xdeh, min assist. Sit to stand, conta ct guard assistance. Ambulation of 40 feet with a Rollator, moderate assistance. Rehab And Medical Assessment And Plan: Her rehabilitation impairment group category is 08 orthopedic , lower extremity joint replacement. Her impairment group code is 08.61, status post unilateral knee replacement. Her etiologic diagnosis is primary osteoarthritis of the right knee. Additional comor bidities are decreased mobility and decreased physical function, dyslipidemia, hypertension with hypo tension, osteoarthritis, postoperative pain, weakness, and poor safety awareness. Plan: 1.She will have physical and occupational therapy, if need be speech therapy for a total of 3.5 hour s, 5 out of 7 days. 2.Gabapentin has been added to decrease the need for narcotics that will be 100 mg twice daily. 3.Zofran 4 mg every 4 hours for nausea. 4.Senokot-S and milk of magnesia for constipation. 5.Lovenox for DVT prophylaxis along with Senokot again and milk of Mag and Colace for constipation. Impact Of Her Comorbids: Apparently, the narcotic driven nausea has made it difficult for her to thr celina immediately, but that will be minimized and gabapentin use instead. She is unable to take tramad ol because of allergy. Rehab Specific Plan: 1.Ms. Amor will have physical and occupational therapy, if need be speech therapy for a total of 3.5 hours, 5 out of 7 days to improve her ability to dress upper and lower body and don and doff shoe s, to transfer from bed to chair to toilet to shower. 2.To be able to independently ambulate 250 feet with rolling walker and up and down 5 steps with a r olling walker and to perform all ADLs with independence, in addition to continuing to perform cogniti ve functioning independently. 3.Ms. Amor has a good understanding of the benefits of interdisciplinary approach in the [facility] rehabilitation program with both physical and occupational therapy and if need be speech therapy. She will be seen by Dr. Huddleston, her primary care physician, on daily basis and as needed. Orthopedic s urgeon may become re-involved. She may have wound care if needed. Given her complex medical conditi on and risk of further complications, rehabilitation cannot be safely or effectively perform the [facility] facility such as [facility]. Barriers To Discharge: Currently nausea, vomiting with narcotics as a barrier and pain in the area, but those can be addressed and are being addressed. Estimated Length Of Stay: Around 12 days. Disposition: To her independent living. Prognosis: Good. Rehabilitation Goals: 1.Become independent with upper and lower body dressing and donning and doffing clothes. 2.Independent ambulating 250 feet with a rolling walker. 3.Independent going up and down 5 steps. 4.Independent with doing all ADLs. 5.Independent with cognitive functioning. 6.Having a pain level at 3 or less. 7.Her goals were reviewed with her and she is in agreement. I acknowledge I personally performed a full physical examination on Ms. Amor no later than 24 hour s after her admission to the inpatient rehabilitation facility and determined that she is able to nikunj erate the above course of treatment at an intensive level for reasonable period of time. A detailed individualized plan of care for her will be completed by hospital day 4 based on her preadmission scr een, history and physical, and therapy evaluations. ULI Voice ID: [id number]
[2023-01-17 06:21] LABS: Absolute Lymphocytes (CBC) 3.5 K/uL (0.7-4.9); Hematocrit 26.8 % (36.0-45.0); Lymphocytes % 40.2 % (15.3-44.8); MCV 78.9 fL (80-100); MPV 8.6 fL (7.6-11.3); Platelets 246 thou/uL (152-406)
[2023-01-17 06:31] LABS: Albumin 2.8 g/dL (3.4-5.0); Magnesium 1.8 mg/dL (1.6-2.4); Potassium 3.8 mEq/L (3.5-5.1); Prealbumin 11.7 mg/dL (20-40)
[2023-01-17] MEDS: ENOXAPARIN 30 MG/0.3 ML SQ SCH ×2 (07:39→19:59)
[2023-01-17] MEDS: GABAPENTIN 100 MG CAP PO SCH ×2 (08:50→19:59)
[2023-01-17] MEDS: ACETAMINOPHEN 500 MG TAB PO PRN (08:50)
[2023-01-17] MEDS: FE SULF/FA/VIT B COMP & C TAB PO SCH (08:50)
[2023-01-17] MEDS: DOCUSATE NA 100 MG CAP PO SCH (08:50)
--- NOTE | 2023-01-17 14:01 | P.RH.PN ---
Estimated Length of Stay: 12 Expected Discharge Date: 01/29/23 Discharge Disposition Plan: Home Vital Signs: Last Vital Signs Temp 97.3 F 01/17/23 08:00 Pulse 65 01/17/23 08:00 Resp 12 01/17/23 08:00 BP 112/53 L 01/17/23 08:00 Pulse Ox 96 01/17/23 08:00 Laboratory: Laboratory Last Values WBC 8.70 thou/uL (4.3-10.9) 01/17/23 05:11 RBC 3.40 M/uL (3.86-4.86) L 01/17/23 05:11 Hgb 9.0 g/dL (12.0-15.0) L 01/17/23 05:11 Hct 26.8 % (36.0-45.0) L 01/17/23 05:11 MCV 78.9 fL (80-100) L 01/17/23 05:11 MCH 26.6 pg (27.0-35.0) L 01/17/23 05:11 MCHC 33.7 g/dL (32.0-36.0) 01/17/23 05:11 RDW 16.4 % (12.1-15.2) H 01/17/23 05:11 Plt Count 246 thou/uL (152-406) 01/17/23 05:11 MPV 8.6 fL (7.6-11.3) 01/17/23 05:11 Neutrophils % 46.4 % (41.7-73.7) 01/17/23 05:11 Lymphocytes % 40.2 % (15.3-44.8) 01/17/23 05:11 Monocytes % 11.2 % (3.3-12.3) 01/17/23 05:11 Eosinophils % 1.6 % (0-4.4) 01/17/23 05:11 Basophils % 0.6 % (0-1.3) 01/17/23 05:11 Absolute Neutrophils 4.1 K/uL (1.8-8.0) 01/17/23 05:11 Absolute Lymphocytes 3.5 K/uL (0.7-4.9) 01/17/23 05:11 Absolute Monocytes 1.0 K/uL (0.1-1.3) 01/17/23 05:11 Absolute Eosinophils 0.1 K/uL (0-0.5) 01/17/23 05:11 Absolute Basophils 0.1 K/uL (0-0.5) 01/17/23 05:11 Sodium 135 mEq/L (136-145) L 01/17/23 05:11 Potassium 3.8 mEq/L (3.5-5.1) 01/17/23 05:11 Chloride 105 mEq/L (98-107) 01/17/23 05:11 Carbon Dioxide 27 mEq/L (21-32) 01/17/23 05:11 Anion Gap 6.8 mEq/L (5.0-15.0) 01/17/23 05:11 BUN 16 mg/dL (7-18) 01/17/23 05:11 Creatinine 0.61 mg/dL (0.55-1.02) 01/17/23 05:11 Est GFR (CKD-EPI) 85 ml/min (=/>90) L 01/17/23 05:11 Glucose 101 mg/dL (74-106) 01/17/23 05:11 Calcium 8.0 mg/dL (8.5-10.1) L 01/17/23 05:11 Magnesium 1.8 mg/dL (1.6-2.4) 01/17/23 05:11 Albumin 2.8 g/dL (3.4-5.0) L 01/17/23 05:11 Prealbumin 11.7 mg/dL (20-40) L 01/17/23 05:11 Urine Color Yellow (Yellow) 01/17/23 02:00 Urine Clarity Clear (Clear) 01/17/23 02:00 Urine pH 6.0 (5.0-7.0) 01/17/23 02:00 Ur Specific [place] 1.028 (1.005-1.030) 01/17/23 02:00 Glucose (UA)(Auto) Negative (Negative) 01/17/23 02:00 Urine Ketones Trace (Negative) H 01/17/23 02:00 Urine Blood Negative (Negative) 01/17/23 02:00 Urine Nitrite Negative (Negative) 01/17/23 02:00 Urine Bilirubin Negative (Negative) 01/17/23 02:00 Urine Urobilinogen Normal (Normal) 01/17/23 02:00 Ur Leukocyte Esterase Negative Kunal/uL (Negative) 01/17/23 02:00 Urine RBC <5 /HPF (None Seen) 01/17/23 02:00 Urine WBC <5 /HPF (<5) 01/17/23 02:00 Ur Squamous Epith Cells <5 /HPF (None Seen) 01/17/23 02:00 U Non-Squamous Epi Cells <5 /HPF (None Seen) 01/17/23 02:00 Urine Bacteria <20 /HPF (<20) 01/17/23 02:00 Hyaline Casts 0-5 /LPF (None Seen) 01/17/23 02:00 Urine Mucus Slight /HPF (None Seen) 01/17/23 02:00 Urine Culture Reflexed Not needed 01/17/23 02:00 Urine Total Protein Trace (Negative) H 01/17/23 02:00 Weight: 121 lb 15.99 oz Physician Update: She is making fair overall progress with min assistance 50' with rollator. She has anemia and mild malnutrition and is now on ensure with hemocyte plus. Summary: Patient's care plan and mcc goals have been reviewed and revised as necessary. Please see the Rehabilitation Signature page for all necessary signatures.
[2023-01-17] MEDS ORDERED: BISACODYL 10 MG RECTAL SUPP PR ONE (14:56)
[2023-01-17] MEDS: DOCOSAHEXANOIC AC/EPA 1000 MG PO SCH (19:59)
[2023-01-17] MEDS: ENSURE ENLIVE 237 ML CAN PO SCH (19:59)
[2023-01-17] MEDS: ATORVASTATIN 20 MG TAB PO SCH (19:59)
--- NOTE | 2023-01-17 20:07 | RAD REPORT ---
EXAM DESCRIPTION: RAD - Abdomen 1 View (KUB) - 01/17/2023 7:57 pm CLINICAL HISTORY: Abdomen pain FINDINGS: The bowel gas pattern is unremarkable. A moderate amount of stool is present throughout th e colon. Cement has been placed into 2 lumbar fractures. Right hip arthroplasty No significant abnormal calcification is displayed
[2023-01-18] MEDS: ACETAMINOPHEN 500 MG TAB PO PRN ×3 (00:46→21:36)
[2023-01-18] MEDS: DIPHENHYDRAMINE 25 MG TAB/CAP PO PRN ×3 (00:46→21:41)
--- NOTE | 2023-01-18 01:21 | PN ---
Date of Progress Note: 01/17/2023 Subjective: Patient was on rehab floor. This morning when I saw her, she was lying in bed, not in a ny distress. Denies any complaints. No abdominal pain, nausea, vomiting. Objective: VITAL SIGNS: Reviewed. HEENT: Unremarkable,. LUNGS: Clear to auscultation. HEART: Sounds normal. ABDOMEN: Soft. Bowel sounds normal. No guarding, rigidity, tenderness, or distention. EXTREMITIES: No leg edema. Laboratory Data: White count 8.7, hemoglobin 9, platelets 246. Sodium 135, potassium 3.8, chloride 105, bicarb 27, BUN 16, creatinine 0.61, glucose 101, albumin 2.8. Impression: 1.Hypertension. 2.Hyperlipidemia. 3.Constipation. 4.Anemia due to acute blood loss. Plan: We will go ahead and continue to monitor hemoglobin. No need for any blood transfusion. We w ill go ahead and give iron supplement. Patient has chronic constipation problem and we will go ahead and order stool softener for her. Continue current DVT prophylaxis and continue current antihyperte nsive medication. KATT/MODL Voice ID: [id number] Report ID: [id number]
[2023-01-18] MEDS: DOCUSATE NA 100 MG CAP PO SCH (08:00)
[2023-01-18] MEDS: ENOXAPARIN 30 MG/0.3 ML SQ SCH ×2 (09:00→20:02)
[2023-01-18] MEDS: FE SULF/FA/VIT B COMP & C TAB PO SCH (09:06)
[2023-01-18] MEDS: CALCIUM CARB 500MG/VIT D 200 IU TAB PO SCH (09:07)
[2023-01-18] MEDS: DOCUSATE NA/SENNA CONC 1 TAB PO SCH ×2 (09:07→20:01)
[2023-01-18] MEDS: CLOPIDOGREL 75 MG TABLET PO SCH (09:09)
[2023-01-18] MEDS: MULTIVITAMIN TAB PO SCH (09:09)
[2023-01-18] MEDS: FERROUS SULFATE 325 MG TAB PO SCH (09:09)
[2023-01-18] MEDS: GABAPENTIN 100 MG CAP PO SCH ×2 (09:10→20:01)
[2023-01-18] MEDS: FAMOTIDINE 20 MG TAB PO SCH (09:10)
[2023-01-18] MEDS: ASPIRIN EC 81 MG TAB PO SCH (09:12)
[2023-01-18] MEDS: NEBIVOLOL HCL 5 MG TAB PO SCH ×2 (09:19→12:30)
[2023-01-18] MEDS: CYANOCOBALAMIN 1,000 MCG TAB PO SCH (09:19)
[2023-01-18] MEDS: LIDOCAINE 4% PATCH TOP SCH (09:21)
[2023-01-18] MEDS: ENSURE ENLIVE 237 ML CAN PO SCH ×2 (09:22→20:02)
--- NOTE | 2023-01-18 12:24 | PN ---
Date of Progress Note: 01/18/2023 Subjective: The patient was seen this morning for followup. No new complaints, problems reported. She was sitting in the wheelchair, and reports that she had small bowel movement yesterday after Dulc olax suppository. So, she really has not had any bowel movement for last several days except very sm all bowel movement yesterday, so we will still need to go ahead and take care of her constipation pro blem today. Denies any abdominal pain, nausea, vomiting. Objective: Vital Signs: Reviewed. HEENT: Unremarkable. Lungs: Clear to auscultation. Heart: Sounds normal. Abdomen: Soft. Bowel sounds normal. No guarding, rigidity, tenderness, distention. Extremities: No leg edema. Impression: 1.Acute blood loss anemia. 2.Hypertension. 3.Hyperlipidemia. 4.Constipation. Plan: We will go ahead and give Senokot-S 2 tablets 2 times a day, give Dulcolax rectal suppository and milk of magnesia per order. Continue current antihypertensive medication. Continue iron supplem ent per order and we will see her tomorrow for followup. Physical therapy to be provided under adamaris tiwari of Dr. Simmons. KATT/MODL Voice ID: [id number] Report ID: [id number]
[2023-01-18] MEDS ORDERED: BISACODYL 10 MG RECTAL SUPP PR ONE (15:00)
[2023-01-18] MEDS ORDERED: DOCUSATE NA 100 MG CAP PO PRN (15:39)
[2023-01-18] MEDS: DOCOSAHEXANOIC AC/EPA 1000 MG PO SCH (20:01)
[2023-01-18] MEDS: ATORVASTATIN 20 MG TAB PO SCH (20:01)
[2023-01-19] MEDS: ENOXAPARIN 30 MG/0.3 ML SQ SCH ×2 (07:54→08:00)
[2023-01-19] MEDS: FERROUS SULFATE 325 MG TAB PO SCH (07:55)
[2023-01-19] MEDS: CALCIUM CARB 500MG/VIT D 200 IU TAB PO SCH (07:55)
[2023-01-19] MEDS: CLOPIDOGREL 75 MG TABLET PO SCH (07:55)
[2023-01-19] MEDS: LIDOCAINE 4% PATCH TOP SCH (07:55)
[2023-01-19] MEDS: DOCUSATE NA/SENNA CONC 1 TAB PO SCH ×2 (07:56→20:56)
[2023-01-19] MEDS: MULTIVITAMIN TAB PO SCH (07:56)
[2023-01-19] MEDS: FAMOTIDINE 20 MG TAB PO SCH (07:56)
[2023-01-19] MEDS: NEBIVOLOL HCL 5 MG TAB PO SCH (07:56)
[2023-01-19] MEDS: CYANOCOBALAMIN 1,000 MCG TAB PO SCH (07:57)
[2023-01-19] MEDS: ASPIRIN EC 81 MG TAB PO SCH (07:57)
[2023-01-19] MEDS: GABAPENTIN 100 MG CAP PO SCH ×2 (07:57→20:55)
[2023-01-19] MEDS: FE SULF/FA/VIT B COMP & C TAB PO SCH (07:57)
[2023-01-19] MEDS: ENSURE ENLIVE 237 ML CAN PO SCH ×2 (07:58→20:55)
[2023-01-19] MEDS: APIXABAN 2.5 MG TABLET PO SCH ×2 (09:45→20:55)
--- NOTE | 2023-01-19 10:39 | PN ---
Date of Progress Note: 01/19/2023 Subjective: The patient was seen this morning for followup. No new complaints or problems reported by the patient. She had a bowel movement yesterday. Denies any abdominal pain, nausea, vomiting. N o chest pain. No shortness of breath. The patient is getting Lovenox injection for DVT prophylaxis and she is complaining of burning, stinging pain after Lovenox injections and is asking if we can dis continue it and give her something else. Physical Examination: Vital Signs: Reviewed. This morning; temperature 97.7, pulse 68, respiratory rate 16, blood pressur e 149/68, oxygen saturation 97%. HEENT: Unremarkable. Lungs: Clear to auscultation. Heart: Sounds normal. Abdomen: Soft. Bowel sounds normal. No guarding, rigidity, tenderness, distention. Extremities: No leg edema. Impression: 1.Acute blood loss anemia. 2.Hypertension. 3.Hyperlipidemia. 4.Right knee replacement. 5.Constipation. Plan: We will continue current stool softener per order. We will go ahead and continue current anti hypertensive medication and statin therapy. The patient's pain is well controlled with current medic ation and continue it. At home, the patient takes aspirin and Plavix and currently she is taking bot h of these medications along with Lovenox for DVT prophylaxis. I will go ahead and discontinue her Lovenox and I will discontinue her aspirin, and we will start her on Eliquis 2.5 mg 2 times a day. W e will continue her Plavix. KATT/MODL Voice ID: [id number] Report ID: [id number]
[2023-01-19] MEDS: DOCOSAHEXANOIC AC/EPA 1000 MG PO SCH (20:54)
[2023-01-19] MEDS: ATORVASTATIN 20 MG TAB PO SCH (20:56)
[2023-01-19] MEDS: MELATONIN 3 MG TABLET PO PRN (21:18)
[2023-01-19] MEDS: ACETAMINOPHEN 500 MG TAB PO PRN (21:19)
[2023-01-20] MEDS: ACETAMINOPHEN 500 MG TAB PO PRN ×2 (08:10→19:43)
[2023-01-20] MEDS: FERROUS SULFATE 325 MG TAB PO SCH (08:14)
[2023-01-20] MEDS: ENSURE ENLIVE 237 ML CAN PO SCH ×2 (08:14→19:44)
[2023-01-20] MEDS: DOCUSATE NA/SENNA CONC 1 TAB PO SCH ×2 (08:15→19:44)
[2023-01-20] MEDS: NEBIVOLOL HCL 5 MG TAB PO SCH (08:15)
[2023-01-20] MEDS: MULTIVITAMIN TAB PO SCH (08:16)
[2023-01-20] MEDS: FE SULF/FA/VIT B COMP & C TAB PO SCH (08:16)
[2023-01-20] MEDS: CYANOCOBALAMIN 1,000 MCG TAB PO SCH (08:16)
[2023-01-20] MEDS: GABAPENTIN 100 MG CAP PO SCH ×2 (08:16→19:43)
[2023-01-20] MEDS: APIXABAN 2.5 MG TABLET PO SCH ×2 (08:16→19:42)
[2023-01-20] MEDS: CALCIUM CARB 500MG/VIT D 200 IU TAB PO SCH (08:17)
[2023-01-20] MEDS: CLOPIDOGREL 75 MG TABLET PO SCH (08:17)
[2023-01-20] MEDS: LIDOCAINE 4% PATCH TOP SCH (10:15)
[2023-01-20] MEDS: ATORVASTATIN 20 MG TAB PO SCH (19:42)
[2023-01-20] MEDS: DOCOSAHEXANOIC AC/EPA 1000 MG PO SCH (19:43)
[2023-01-20] MEDS: FAMOTIDINE 20 MG TAB PO SCH (19:43)
[2023-01-20] MEDS: DIPHENHYDRAMINE 25 MG TAB/CAP PO PRN ×2 (19:43→20:55)
--- NOTE | 2023-01-21 03:00 | PN ---
Date of Progress Note: 01/20/2023 Time Of Service: 1:15 p.m. Subjective: Ms. Amor notes she is having some small loose stools after having constipation, but s he is not satisfied with her stools thus far. She also has some mild to moderate pain in the right k nee when bearing weight, but when lying in bed or sitting, pain is well controlled. Review of Systems: No fevers or chills. No chest pain. No shortness of breath. Some pain in the right knee, where she has knee replacement and some shoulder pain bilaterally related to arthritis. Physical Examination: Vital Signs: Blood pressure 103/51, pulse 69, respiratory rate 18, temperature 98.2, oxygen saturati on 93%. General: Ms. Amor is resting in bed. She is in no significant distress as noted. HEENT: Normoc ephalic, atraumatic. Sclerae anicteric. Extremities: Right knee good hemostasis. Otherwise, no other findings on exam. Laboratory Studies: No new laboratory studies. X-ray/imaging: No new x-rays. Medications: Medications have been reviewed. She continues on Senokot S for constipation, milk of byron chen as well is added. She has ferrous sulfate and protein supplementation for malnutrition, anem ia, Lipitor for dyslipidemia, Eliquis 2.5 mg twice daily for DVT risk reduction, Plavix 75 mg daily f or stroke risk reduction. Current Functional Status: Today, she ambulated with the physical therapist covering 250 feet with 5 rest breaks. She did have a break around every 40 feet. However, the last one was an 80 feet stret ch. She completed that without a break. She worked on [id number] transfers with the geophysical laboratory supervisor apist and was at contact guard assistance, self propels wheelchair 125 feet with standby assistance. With occupational therapy, she did bilateral upper extremity exercises, seated for 6 minutes and erg ometer to improve endurance. Progress Towards Rehabilitation Goals: Ms. Amor is making good progress towards her goals to be f ully independent with her transfers from bed to chair, to toilet, to shower; ambulate 250 feet with m odified independence; up and down 5 steps with modified independence; toileting and bathing with sofía fied independence. Assessment: Ms. Amor is an 87-year-old patient in the rehabilitation unit with total right knee a rthroplasty due to osteoarthritis of the right knee. She does have dyslipidemia, hypertension, episo roxana of hypotension, osteoarthritis, and poor safety awareness. Plan: 1.Continue with physical, occupational, and speech therapy as well. 2.Gabapentin for neuropathic pain. 3.Senokot S, milk of magnesia for constipation. 4.We will continue DVT prophylaxis and currently she is receiving Eliquis instead of Lovenox. Comorbids That Continue To Impact The Rehabilitation Process: She has arthritic pain in the shoulder s, making it difficult for her to use the arms and help support her weight as she is ambulating. How ever, she is despite this working well and will have adjustments of medications, gabapentin, to be he lpful. Please note, she is noted to have narcotics, tramadol and she has significant reactions of na usea and vomiting. LB/MODL Voice ID: [id number] Report ID: [id number]
[2023-01-21] MEDS: ACETAMINOPHEN 500 MG TAB PO PRN ×4 (04:40→21:03)
--- NOTE | 2023-01-21 06:53 | PN ---
Date of Progress Note: 01/20/2023 Subjective: Patient was seen this morning for followup. She was lying in bed, not in any distress. The patient is complaining of some heartburn, indigestion, and requesting some medication for that. Denies any abdominal pain, nausea, or vomiting. Objective: Vital Signs: Reviewed. HEENT: Unremarkable. Lungs: Clear to auscultation. Heart: Sounds normal. Abdomen: Soft. Bowel sounds normal. No guarding, rigidity, tenderness, or distention. Extremities: No leg edema. Impression: 1.Gastroesophageal reflux disease. 2.Acute blood loss anemia. 3.Hypertension. 4.Hyperlipidemia. 5.Osteoarthritis, multiple sites. Plan: We will go ahead and start the patient on famotidine per order. Continue current antihyperten sive medication. Continue current DVT prophylaxis and anti-platelet therapy. I will see her tomorro w for followup. Continue physical therapy under guidance of Dr. Simmons. KATT/TEDL Voice ID: [id number] Report ID: [id number]
[2023-01-21] MEDS: APIXABAN 2.5 MG TABLET PO SCH ×2 (07:39→20:01)
[2023-01-21] MEDS: FE SULF/FA/VIT B COMP & C TAB PO SCH (07:39)
[2023-01-21] MEDS: DOCUSATE NA/SENNA CONC 1 TAB PO SCH ×2 (07:39→20:00)
[2023-01-21] MEDS: FERROUS SULFATE 325 MG TAB PO SCH (07:39)
[2023-01-21] MEDS: CYANOCOBALAMIN 1,000 MCG TAB PO SCH (07:39)
[2023-01-21] MEDS: CALCIUM CARB 500MG/VIT D 200 IU TAB PO SCH (07:39)
[2023-01-21] MEDS: NEBIVOLOL HCL 5 MG TAB PO SCH (07:39)
[2023-01-21] MEDS: CLOPIDOGREL 75 MG TABLET PO SCH (07:40)
[2023-01-21] MEDS: ENSURE ENLIVE 237 ML CAN PO SCH ×2 (07:40→20:01)
[2023-01-21] MEDS: GABAPENTIN 100 MG CAP PO SCH ×2 (07:40→20:00)
[2023-01-21] MEDS: MULTIVITAMIN TAB PO SCH (07:40)
[2023-01-21] MEDS: LIDOCAINE 4% PATCH TOP SCH (08:49)
--- NOTE | 2023-01-21 19:30 | PN ---
Date of Progress Note: 01/21/2023 Subjective: The patient was seen this morning for followup. No new complaints or problems reported by the patient. Lying in bed, not in any distress. Reports that yesterday she had more pain because she did lot more therapy yesterday. I have advised her today to try to take her Tylenol with breakf ast and lunch instead of waiting to take Tylenol until the pain starts. Objective: Vital Signs: Reviewed. HEENT: Unremarkable. Lungs: Clear to auscultation. Heart: Sounds normal. Abdomen: Soft. Bowel sounds normal. No guarding, rigidity, tenderness, distention. Extremities: No leg edema. Impression: 1.Acute blood loss anemia. 2.Hypertension. 3.Hyperlipidemia. 4.Right knee replacement. 5.Osteoarthritis, multiple sites. Plan: We will continue current iron supplement, continue current antihypertensive medication and candelaria n medication per order. Continue physical therapy under guidance of Dr. Simmons and I will see her tomorrow for followup. KATT/MODL Voice ID: [id number] Report ID: [id number]
[2023-01-21] MEDS: ATORVASTATIN 20 MG TAB PO SCH (20:00)
[2023-01-21] MEDS: DOCOSAHEXANOIC AC/EPA 1000 MG PO SCH (20:00)
[2023-01-21] MEDS: FAMOTIDINE 20 MG TAB PO SCH (20:00)
[2023-01-21] MEDS: DIPHENHYDRAMINE 25 MG TAB/CAP PO PRN (21:03)
[2023-01-22] MEDS: NEBIVOLOL HCL 5 MG TAB PO SCH (07:22)
[2023-01-22] MEDS: CLOPIDOGREL 75 MG TABLET PO SCH (07:23)
[2023-01-22] MEDS: FE SULF/FA/VIT B COMP & C TAB PO SCH (07:23)
[2023-01-22] MEDS: DOCUSATE NA/SENNA CONC 1 TAB PO SCH ×2 (07:23→19:15)
[2023-01-22] MEDS: CALCIUM CARB 500MG/VIT D 200 IU TAB PO SCH (07:23)
[2023-01-22] MEDS: FERROUS SULFATE 325 MG TAB PO SCH (07:23)
[2023-01-22] MEDS: CYANOCOBALAMIN 1,000 MCG TAB PO SCH (07:24)
[2023-01-22] MEDS: MULTIVITAMIN TAB PO SCH (07:24)
[2023-01-22] MEDS: ENSURE ENLIVE 237 ML CAN PO SCH ×2 (07:24→19:25)
[2023-01-22] MEDS: APIXABAN 2.5 MG TABLET PO SCH ×2 (07:24→19:24)
[2023-01-22] MEDS: GABAPENTIN 100 MG CAP PO SCH (07:24)
[2023-01-22] MEDS ORDERED: TRAMADOL HCL 50 MG TAB PO SCH (08:00)
[2023-01-22] MEDS: HYDROCODONE/APAP 5/325 MG TAB PO SCH ×2 (08:20→18:06)
[2023-01-22] MEDS: LIDOCAINE 4% PATCH TOP SCH (08:20)
[2023-01-22] MEDS: ACETAMINOPHEN 500 MG TAB PO PRN (12:29)
[2023-01-22] MEDS ORDERED: GABAPENTIN 100 MG CAP PO ONE (14:10)
[2023-01-22] MEDS: FAMOTIDINE 20 MG TAB PO SCH (19:24)
[2023-01-22] MEDS: ATORVASTATIN 20 MG TAB PO SCH (19:24)
[2023-01-22] MEDS: DOCOSAHEXANOIC AC/EPA 1000 MG PO SCH (19:25)
[2023-01-22] MEDS: GABAPENTIN 300 MG CAP PO SCH (19:25)
[2023-01-22] MEDS ORDERED: GABAPENTIN 100 MG CAP PO SCH (20:00)
[2023-01-22] MEDS: DIPHENHYDRAMINE 25 MG TAB/CAP PO PRN (20:24)
[2023-01-23] MEDS: ACETAMINOPHEN 500 MG TAB PO PRN (01:53)
--- NOTE | 2023-01-23 04:56 | P.PN ---
Date of Service: 01/23/23 Subjective: Ms. Amor notes she is having some small loose stools after having constipation, but she is not satisfied with her stools thus far. She also has some mild to moderate pain in the right knee when bearing weight, but when lying in bed or sitting, pain is well controlled. Review of Systems: No fevers or chills. No chest pain. No shortness of breath. Some pain in the right knee, where she has knee replacement and some shoulder pain bilaterally related to arthritis. Physical Examination: Vital Signs: Blood pressure 103/51, pulse 69, respiratory rate 18, temperature 98.2, oxygen saturation 93%. General: Ms. Amor is resting in bed. She is in no significant distress as noted. HEENT: Normocephalic, atraumatic. Sclerae anicteric. Extremities: Right knee good hemostasis. Otherwise, no other findings on exam. Laboratory Studies: No new laboratory studies. X-ray/imaging: No new x-rays. Medications: Medications have been reviewed. She continues on Senokot S for constipation, milk of magnesia as well is added. She has ferrous sulfate and protein supplementation for malnutrition, anemia, Lipitor for dyslipidemia, Eliquis 2.5 mg twice daily for DVT risk reduction, Plavix 75 mg daily for stroke risk reduction. Current Functional Status: Today, she ambulated with the physical therapist covering 250 feet with 5 rest breaks. She did have a break around every 40 feet. However, the last one was an 80 feet stretch. She completed that without a break. She worked on [id number] transfers with the physical therapist and was at contact guard assistance, self propels wheelchair 125 feet with standby assistance. With occupational therapy, she did bilateral upper extremity exercises, seated for 6 minutes and ergometer to improve endurance. Progress Towards Rehabilitation Goals: Ms. Amor is making good progress towards her goals to be fully independent with her transfers from bed to chair, to toilet, to shower; ambulate 250 feet with modified [place]; up and down 5 steps with modified independence; toileting and bathing with modified independence. Assessment: Ms. Amor is an 87-year-old patient in the rehabilitation unit with total right knee arthroplasty due to osteoarthritis of the right knee. She does have dyslipidemia, hypertension, episodes of hypotension, osteoarthritis, and poor safety awareness. Plan: 1. Continue with physical, occupational, and speech therapy as well. 2. Gabapentin for neuropathic pain. 3. Senokot S, milk of magnesia for constipation. 4. We will continue DVT prophylaxis and currently she is receiving Eliquis instead of Lovenox. Comorbids That Continue To Impact The Rehabilitation Process: She has arthritic pain in the shoulders, making it difficult for her to use the arms and help support her weight as she is ambulating. However, she is despite this working well and will have adjustments of medications, gabapentin, to be helpful. Please note, she is noted to have narcotics, tramadol and she has significant reactions of nausea and vomiting.
[2023-01-23 05:00] LABS: Absolute Lymphocytes (CBC) 3.4 K/uL (0.7-4.9); Hematocrit 24.9 % (36.0-45.0); Lymphocytes % 36.7 % (15.3-44.8); MPV 7.8 fL (7.6-11.3); Platelets 310 thou/uL (152-406); RBC Red Blood Cell Count 3.07 M/uL (3.86-4.86)
[2023-01-23 05:10] LABS: Albumin 2.6 g/dL (3.4-5.0); Magnesium 1.9 mg/dL (1.6-2.4); Potassium 4.8 mEq/L (3.5-5.1); Prealbumin 12.6 mg/dL (20-40)
[2023-01-23 05:39] LABS: Blood Morphology Comment NOT SEEN (NOT SEEN); Platelet Estimate ADEQ
[2023-01-23] MEDS: DOCUSATE NA/SENNA CONC 1 TAB PO SCH ×2 (08:00→19:07)
[2023-01-23] MEDS: LIDOCAINE 4% PATCH TOP SCH (08:02)
[2023-01-23] MEDS: CYANOCOBALAMIN 1,000 MCG TAB PO SCH (08:04)
[2023-01-23] MEDS: MULTIVITAMIN TAB PO SCH (08:04)
[2023-01-23] MEDS: CLOPIDOGREL 75 MG TABLET PO SCH (08:04)
[2023-01-23] MEDS: GABAPENTIN 300 MG CAP PO SCH ×2 (08:04→19:02)
[2023-01-23] MEDS: CALCIUM CARB 500MG/VIT D 200 IU TAB PO SCH (08:05)
[2023-01-23] MEDS: FERROUS SULFATE 325 MG TAB PO SCH (08:05)
[2023-01-23] MEDS: APIXABAN 2.5 MG TABLET PO SCH ×2 (08:05→20:25)
[2023-01-23] MEDS: NEBIVOLOL HCL 5 MG TAB PO SCH (08:05)
[2023-01-23] MEDS: HYDROCODONE/APAP 5/325 MG TAB PO SCH ×2 (08:06→19:03)
[2023-01-23] MEDS: FE SULF/FA/VIT B COMP & C TAB PO SCH (08:06)
[2023-01-23] MEDS: ENSURE ENLIVE 237 ML CAN PO SCH ×2 (08:10→19:02)
[2023-01-23] MEDS: MELATONIN 3 MG TABLET PO PRN (19:02)
[2023-01-23] MEDS: FAMOTIDINE 20 MG TAB PO SCH (19:02)
[2023-01-23] MEDS: DOCOSAHEXANOIC AC/EPA 1000 MG PO SCH (19:02)
[2023-01-23] MEDS: ATORVASTATIN 20 MG TAB PO SCH (19:03)
--- NOTE | 2023-01-23 20:20 | PN ---
Date of Progress Note: 01/22/2023 Subjective: The patient was seen this morning for followup. No new complaints or problems reported. She was complaining of lot of pain after her physical therapy and she takes Tylenol almost every 4 hours and we did talk about trying some different pain medication to achieve better pain control and to lower use of Tylenol and after a long discussion, she is willing to try it. Objective: Vital Signs: Reviewed. HEENT: Unremarkable. Lungs: Clear to auscultation. Heart: Sounds normal. Abdomen: Soft. Bowel sounds normal. No guarding, rigidity, tenderness, distention. Extremities: No leg edema. Impression: 1.Hypertension. 2.Hyperlipidemia. 3.Acute blood loss anemia. 4.Osteoarthritis, multiple sites. Plan: We will go ahead and continue current DVT prophylaxis, continue Tylenol on a p.r.n. basis per order, and I have asked the patient to try half of the hydrocodone 2 times a day, so like in the morn ing after breakfast and in the evening. After evening meal, I will see how that helps to control her pain. Continue physical therapy under guidance of Dr. Simmons. KATT/MODL Voice ID: [id number] Report ID: [id number]
--- NOTE | 2023-01-23 20:30 | PN ---
Date of Progress Note: 01/23/2023 Subjective: The patient was seen this morning for followup. No new complaints or problems reported by the patient. She was lying in bed. Her pain was under better control after we started hydrocodon e half a tablet 2 times a day yesterday. No constipation. No nausea, vomiting. Objective: Vital Signs: Reviewed. HEENT: Unremarkable. Lungs: Clear to auscultation. Heart: Sounds normal. Abdomen: Soft. Bowel sounds normal. No guarding, rigidity, tenderness, distention. Extremities: No leg edema. Impression: 1.Osteoarthritis, multiple sites. 2.Hypertension. 3.Hyperlipidemia. Plan: Today's lab results reviewed. Continue current medication. Continue physical therapy under g uidance of Dr. Simmons and I will see her tomorrow for followup. The patient is scheduled to go [facility] tomorrow. She lives at [facility]] and she informed me that she is going to arrange for care prov ider to assist her as she is on independent side at [facility]3]. I will see her tomorrow morning fo r followup. KATT/MODL Voice ID: [id number] Report ID: [id number]
[2023-01-24 06:52] VITALS: BP 118/59; TEMP 97.7
[2023-01-24] MEDS: DOCUSATE NA/SENNA CONC 1 TAB PO SCH (08:00)
[2023-01-24] MEDS: LIDOCAINE 4% PATCH TOP SCH (08:20)
[2023-01-24] MEDS: CYANOCOBALAMIN 1,000 MCG TAB PO SCH (08:22)
[2023-01-24] MEDS: MULTIVITAMIN TAB PO SCH (08:22)
[2023-01-24] MEDS: FERROUS SULFATE 325 MG TAB PO SCH (08:22)
[2023-01-24] MEDS: CLOPIDOGREL 75 MG TABLET PO SCH (08:22)
[2023-01-24] MEDS: HYDROCODONE/APAP 5/325 MG TAB PO SCH (08:23)
[2023-01-24] MEDS: FE SULF/FA/VIT B COMP & C TAB PO SCH (08:23)
[2023-01-24] MEDS: GABAPENTIN 300 MG CAP PO SCH (08:23)
[2023-01-24] MEDS: CALCIUM CARB 500MG/VIT D 200 IU TAB PO SCH (08:24)
[2023-01-24] MEDS: NEBIVOLOL HCL 5 MG TAB PO SCH (08:24)
[2023-01-24] MEDS: APIXABAN 2.5 MG TABLET PO SCH (08:25)
[2023-01-24] MEDS: ENSURE ENLIVE 237 ML CAN PO SCH (08:25)
--- NOTE | 2023-01-24 22:39 | DS ---
Date of Discharge: 01/24/2023 Disposition: Discharged to go back home. Physical Examination: HEENT: Unremarkable. Lungs: Clear to auscultation. Heart: Sounds normal. Abdomen: Soft. Bowel sounds normal. No guarding, rigidity, tenderness, distention. Extremities: No leg edema. Laboratory Data: On 01/17/2023, white count 8.7, hemoglobin 9, platelets 246 and yesterday white cou nt 9.2, hemoglobin 8.4, platelets 310. Chemistry on 01/17/2023, sodium 135, potassium 3.8, chloride 105, bicarb 27, BUN 16, creatinine 0.61, glucose 101. Magnesium 1.8, albumin 2.8, and yesterday sodi um 138, potassium 4.8, chloride 108, bicarb 27, BUN 16, creatinine 0.76, glucose 115, magnesium 1.9, albumin 2.6. Discharge Medications And Instructions: 1.Continue all prior home medications. 2.Patient to take [place] 5 mg, half a tablet 2 times a day as needed for arthritis pain and prescript ion was sent from office to her Pharmacy. 3.Follow up at my office and follow up with Dr. Herrera next week. 4.The patient has iron tablet at home and she was instructed to take 1 tablet by mouth daily for 2 t o 3 months. Hospital Course: This is an 87-year-old very pleasant female patient, who was admitted to inpatient rehab floor after she had right knee replacement surgery by Dr. Herrera. She had surgery done and subsequently she was medically stable and was brought in to rehab floor. She received physical thera py under guidance of Dr. Simmons. Pain control was provided with Tylenol and pain medication which was hydrocodone and she had nausea with a full dose of hydrocodone, so we tried half a tablet 2 times a day with food and she has tolerated that very well and it has actually helped to diminish her pain . She has done very well with physical therapy and today she was determined ready for discharge from rehab point of view. Medically, she is stable for discharge. Final Diagnoses: 1.Osteoarthritis, multiple sites. 2.Acute blood loss anemia. 3.Hypertension. 4.Hyperlipidemia. 5.Ulcerative colitis. 6.Diverticulosis. 7.Gastroesophageal reflux disease. 8.Left breast cancer. 9.Osteoporosis. 10.Hypothyroidism. KATT/MODL Voice ID: [id number] Report ID: [id number]
== END 2023-01-24 13:00 | disposition home health service (06) | DRG 560 ==
LOC: 5TH 11:14
PROVIDERS: ADMIT Internal Medicine; ATTEND Internal Medicine
DX: Z47.1 Aftercare following joint replacement surgery (principal); D62 Acute posthemorrhagic anemia; K51.90 Ulcerative colitis, unspecified, without complications; Z96.651 Presence of right artificial knee joint; I10 Essential (primary) hypertension; E78.5 Hyperlipidemia, unspecified; K59.00 Constipation, unspecified; I95.9 Hypotension, unspecified; M15.9 Polyosteoarthritis, unspecified; K57.90 Diverticulosis of intestine, part unspecified, without perforation or abscess without bleeding; K21.9 Gastro-esophageal reflux disease without esophagitis
CPT/HCPCS: 36415; 71046; 74018; 80048; 80053; 81001; 82040; 83735; 84134; 85014; 85018; 85025; 85610; 85730; 86850; 86900; 86901; 87086; 87088; 88304; 88311; 94010; 97010; 97110; 97116; 97139; 97163; 97165; 97530; 97542; A4216; C1776; J0171; J1100; J1170; J1650; J2001; J2405; J2550; J2704; J3010; J3475; J7120; Q0162

== ENCOUNTER 2023-09-23 11:34 | Inpatient (IN) | payer OTHER ==
[2023-09-23] MEDS ORDERED: BISACODYL E.C. 5 MG TAB PO PRN (16:21)
[2023-09-23] MEDS ORDERED: HYDROCODONE/APAP 5/325 MG TAB PO PRN (16:25)
[2023-09-23] MEDS ORDERED: MAGNES/ALUMIN/SIMET 30ML UCUP PO PRN (16:26)
[2023-09-23 17:01] LABS: Specific Gravity 1.005 (1.005-1.030); Sqamous Epithelial None Seen /HPF (None Seen); Urine Bacteria <20 /HPF (<20); Urine Bilirubin NEGATIVE (Negative); Urine Blood Negative (Negative); Urine Clarity Clear (Clear); Urine Color Light-Yellow (Yellow); Urine Culture Reflex Order NOT NEEDED; Urine Glucose NEGATIVE (Negative); Urine Ketones NEGATIVE (Negative); Urine Micro Reflex YN NO BILL MICROSCOPIC; Urine Nitrite NEGATIVE (Negative); Urine Protein NEGATIVE (Negative); Urine RBC None Seen /HPF (None Seen); Urine Urobilinogen Normal (Normal); Urine WBC <5 /HPF (<5); Urine pH 7.5 (5.0-7.0)
[2023-09-23 17:03] VITALS: BMI 24.2
[2023-09-23] MEDS: CALCIUM CARB 500MG/VIT D 200 IU TAB PO SCH (19:51)
[2023-09-23] MEDS: DOCUSATE NA 100 MG CAP PO SCH (19:51)
[2023-09-23] MEDS: AMLODIPINE 5 MG TAB PO SCH (19:52)
[2023-09-23] MEDS: ATORVASTATIN 20 MG TAB PO SCH (19:52)
[2023-09-23] MEDS: APIXABAN 2.5 MG TABLET PO SCH (19:52)
[2023-09-23] MEDS: DIPHENHYDRAMINE 25 MG TAB/CAP PO PRN (21:22)
--- NOTE | 2023-09-23 23:41 | HP ---
Date of Admission: 09/23/2023 Chief Complaint: Left shoulder pain. History Of Present Illness: This is an 87-year-old pleasant female patient, who had surgery done abo ut 5 days ago in [place] in form of left shoulder arthroplasty and today she was admitted for [facility]. I saw her this evening. The patient has pain in her left arm, left shoulder, which is con trolled with medications. She has some swelling of her left upper extremity since surgery. Denies a ny constipation. No abdominal pain, nausea, vomiting. No chest pain. No shortness of breath. Review of Systems: Musculoskeletal: As mentioned above. All other systems reviewed and negative. Allergies: ACCORDING TO OUTPATIENT RECORD, SHE IS LISTED ALLERGIC TO CLARITHROMYCIN AND DETAILS U NKNOWN AND ACCORDING TO HOSPITAL RECORD, LISTED ALLERGIC TO TRAMADOL. Medications: According to outpatient office record, her medication list is as below: Atorvastatin 2 0 mg daily at bedtime, amlodipine 5 mg daily at bedtime, aspirin 81 mg daily, Caltrate plus D 1 table t 2 times a day, clopidogrel 75 mg daily, famotidine 40 mg daily at bedtime, mesalamine 1.2 g 2 times a day, Bystolic 5 mg daily, vitamin B12 1 mg daily. Past Medical History: Significant for history of TIA in August of 2020, hypothyroidism, hypertension, hyperlipidemia, osteoarthritis at multiple sites, gastroesophageal reflux disease, hiatal hernia, di verticulosis, ulcerative colitis, left breast cancer, compression fracture of spine, osteoporosis, an d history of hyperkalemia. Past Surgical History: Significant for cataract surgery, left breast lumpectomy due to cancer, matt cystectomy, appendectomy, tubal ligation, kyphoplasty in 2013 and September 04, 2021, for compression fra cture of spine, right shoulder surgery on April 19, 2020, hip surgery and knee replacement surgery. Family History: Father , had stroke. Mother , details unknown. Siblings with [employer] and thyroi d disorder. Social History: Negative for smoking and alcohol use. Physical Examination: Vital Signs: Upon admission today, height 5 feet, weight 124 pounds, temperature 98.3, pulse 76, res piratory rate 18, blood pressure 114/57, oxygen saturation 96%. General: Awake, alert, oriented, not in distress. HEENT: Head atraumatic, normocephalic. Conjunctivae nonerythematous. Sclerae white. Mouth, no thr ush or edema noted. Ears/Nose, no mass, lesion, discharge noted. Neck: Supple. No JVD, lymph nodes, bruit, thyromegaly noted. Lungs: Bilateral good equal air entry. Clear to auscultation. No rhonchi. No rales. Heart: Normal heart sounds, no murmur or gallop. Abdomen: Soft, bowel sounds normal. No guarding, rigidity, tenderness, mass, hepatosplenomegaly, dis tention, or bruit noted. Extremities: Left upper extremity has surgical dressing present over left lower arm and left forearm , and left hand shows mild swelling. Skin: No rash, ulcer, cellulitis. Lymphatics: No lymph node enlargement in neck, supraclavicular, infraclavicular region. Neuro: No focal neurological deficit. Chest: Unremarkable. External Genitalia: Deferred. Rectal: Deferred. Laboratory Data: There is no blood work done for this admission and she will have blood work done to . Impression: 1.Osteoarthritis, multiple sites. 2.Hypertension. 3.Hypothyroidism. 4.Hyperlipidemia. 5.Gastroesophageal reflux disease. 6.Diverticulosis. 7.Ulcerative colitis. 8.Left breast cancer. 9.Osteoporosis. Plan: We will admit the patient to hospital to rehab floor for further evaluation and management of this problem. The patient had surgery done in [place]. She is recovering very well and we will go a head and provide physical therapy under guidance of Dr. Simmons from rehab floor. I will continue t o follow her up for medical management. We will go ahead and give her Tylenol as needed for pain con trol along with hydrocodone as needed also for pain control. We will continue stool softener. For h er hypertension, we will continue antihypertensive medication per order. Monitor blood pressure. If necessary, adjust medications. For her gastroesophageal reflux disease, we will continue her proton pump inhibitor therapy and no need for further intervention. For hyperlipidemia, we will continue h er statin therapy and no need for any further intervention. For her ulcerative colitis, she takes he r mesalamine and we will continue that as well per order. For her hypothyroidism, we will continue h er levothyroxine as per order and that will not require any further intervention either. I will see her tomorrow morning for followup and details and plan of treatment discussed with her. We will go a head and give DVT prophylaxis per order. KATT/MODL Voice ID: [id number]
[2023-09-24 03:59] LABS: Absolute Basophils 0.1 K/uL (0-0.5); Absolute Eosinophils 0.2 K/uL (0-0.5); Absolute Lymphocytes (CBC) 2.5 K/uL (0.7-4.9); Absolute Monocytes 1.1 K/uL (0.1-1.3); Absolute Neutrophil 3.3 K/uL (1.8-8.0); Basophils % 1.1 % (0-1.3); Eosinophils % 3.2 % (0-4.4); Hematocrit 20.7 % (36.0-45.0); Lymphocytes % 34.5 % (15.3-44.8); MCH 25.7 pg (27.0-35.0); MCHC 33.7 g/dL (32.0-36.0); MCV 76.1 fL (80-100); Monocytes % 15.8 % (3.3-12.3); Neutrophils % 45.4 % (41.7-73.7); Platelets 380 thou/uL (152-406); RBC Red Blood Cell Count 2.72 M/uL (3.86-4.86); Red Cell Distribution Width 16.2 % (12.1-15.2)
[2023-09-24 04:21] LABS: Albumin 2.2 g/dL (3.4-5.0); Anion Gap 8.3 mEq/L (5.0-15.0); Potassium 4.3 mEq/L (3.5-5.1); Prealbumin 7.8 mg/dL (20-40)
[2023-09-24] MEDS: NEBIVOLOL HCL 5 MG TAB PO SCH (07:45)
[2023-09-24] MEDS: PANTOPRAZOLE 40MG TABLET PO SCH (07:46)
[2023-09-24] MEDS: FERROUS SULFATE 325 MG TAB PO SCH (07:46)
[2023-09-24] MEDS: ASPIRIN EC 81 MG TAB PO SCH (07:46)
[2023-09-24] MEDS: MULTIVITAMIN TAB PO SCH (07:46)
[2023-09-24] MEDS: ENOXAPARIN 40 MG/0.4 ML SQ SCH (07:47)
--- NOTE | 2023-09-24 13:47 | P.RH.PN ---
Estimated Length of Stay: 10 Expected Discharge Date: 10/02/23 Discharge Disposition Plan: Home Family Support: Yes Longterm Goal: Mobility, Transfers, Self Care Vital Signs: Last Vital Signs Temp 98.1 F 09/24/23 08:00 Pulse 65 09/24/23 08:00 Resp 19 09/24/23 08:00 BP 112/56 L 09/24/23 08:00 Pulse Ox 93 09/24/23 08:00 Laboratory: Laboratory Last Values WBC 7.20 thou/uL (4.3-10.9) 09/24/23 03:36 RBC 2.72 M/uL (3.86-4.86) L 09/24/23 03:36 Hgb 7.0 g/dL (12.0-15.0) L 09/24/23 03:36 Hct 20.7 % (36.0-45.0) L 09/24/23 03:36 MCV 76.1 fL (80-100) L 09/24/23 03:36 MCH 25.7 pg (27.0-35.0) L 09/24/23 03:36 MCHC 33.7 g/dL (32.0-36.0) 09/24/23 03:36 RDW 16.2 % (12.1-15.2) H 09/24/23 03:36 Plt Count 380 thou/uL (152-406) 09/24/23 03:36 MPV 8.0 fL (7.6-11.3) 09/24/23 03:36 Neutrophils % 45.4 % (41.7-73.7) 09/24/23 03:36 Lymphocytes % 34.5 % (15.3-44.8) 09/24/23 03:36 Monocytes % 15.8 % (3.3-12.3) H 09/24/23 03:36 Eosinophils % 3.2 % (0-4.4) 09/24/23 03:36 Basophils % 1.1 % (0-1.3) 09/24/23 03:36 Absolute Neutrophils 3.3 K/uL (1.8-8.0) 09/24/23 03:36 Absolute Lymphocytes 2.5 K/uL (0.7-4.9) 09/24/23 03:36 Absolute Monocytes 1.1 K/uL (0.1-1.3) 09/24/23 03:36 Absolute Eosinophils 0.2 K/uL (0-0.5) 09/24/23 03:36 Absolute Basophils 0.1 K/uL (0-0.5) 09/24/23 03:36 Sodium 132 mEq/L (136-145) L 09/24/23 03:36 Potassium 4.3 mEq/L (3.5-5.1) 09/24/23 03:36 Chloride 103 mEq/L (98-107) 09/24/23 03:36 Carbon Dioxide 25 mEq/L (21-32) 09/24/23 03:36 Anion Gap 8.3 mEq/L (5.0-15.0) 09/24/23 03:36 BUN 8 mg/dL (7-18) 09/24/23 03:36 Creatinine 0.61 mg/dL (0.55-1.02) 09/24/23 03:36 Est GFR (CKD-EPI) 85 ml/min (=/>90) L 09/24/23 03:36 Glucose 127 mg/dL (74-106) H 09/24/23 03:36 Calcium 8.0 mg/dL (8.5-10.1) L 09/24/23 03:36 Magnesium 2.0 mg/dL (1.6-2.4) 09/24/23 03:36 Albumin 2.2 g/dL (3.4-5.0) L 09/24/23 03:36 Prealbumin 7.8 mg/dL (20-40) L 09/24/23 03:36 Urine Color Light-yellow (Yellow) 09/23/23 15:35 Urine Clarity Clear (Clear) 09/23/23 15:35 Urine pH 7.5 (5.0-7.0) H 09/23/23 15:35 Ur Specific [place] 1.005 (1.005-1.030) 09/23/23 15:35 Glucose (UA)(Auto) Negative (Negative) 09/23/23 15:35 Urine Ketones Negative (Negative) 09/23/23 15:35 Urine Blood Negative (Negative) 09/23/23 15:35 Urine Nitrite Negative (Negative) 09/23/23 15:35 Urine Bilirubin Negative (Negative) 09/23/23 15:35 Urine Urobilinogen Normal (Normal) 09/23/23 15:35 Ur Leukocyte Esterase Negative Kunal/uL (Negative) 09/23/23 15:35 Urine RBC None seen /HPF (None Seen) 09/23/23 15:35 Urine WBC <5 /HPF (<5) 09/23/23 15:35 Ur Squamous Epith Cells None seen /HPF (None Seen) 09/23/23 15:35 Amorphous Crystals Trace /HPF (None Seen) 09/23/23 15:35 Urine Bacteria <20 /HPF (<20) 09/23/23 15:35 Urine Culture Reflexed Not needed 09/23/23 15:35 Urine Total Protein Negative (Negative) 09/23/23 15:35 ABO/Rh Cancelled 09/24/23 Unknown Solid Phase Ab Screen Cancelled 09/24/23 Unknown Crossmatch See Detail 09/24/23 Unknown Weight: 124 lb 1.6 oz Wound Present: No Negative Pressure Wound Therapy Present: No Physician Update: Labs reviewed, severe anemia Hgb 7.0, getting one unit of PRBCs. Very low prealbumin 7.8. Min assistance with physical therapy. RW 75'. Max assistance with ADLs. Summary: Patient's care plan and skilled nursing goals have been reviewed and revised as necessary. Please see the Rehabilitation Signature page for all necessary signatures.
[2023-09-24] MEDS: ENSURE ENLIVE 237 ML CAN PO SCH (14:00)
[2023-09-24] MEDS: LIDOCAINE 4% PATCH TOP SCH (14:36)
[2023-09-24] MEDS ORDERED: NA CHLORIDE 0.9% 100 ML ONE (15:41)
[2023-09-24 20:59] LABS: Hematocrit 24.1 % (36.0-45.0); Hemoglobin 8.2 g/dL (12.0-15.0)
--- NOTE | 2023-09-24 21:30 | PN ---
Subjective: this morning for followup, she was sleeping, . Objective: Vital signs: this morning was 98.1, pulse 65, respiratory rate 19, blood pres sure 112/56, oxygen saturation 93%. : Unremarkable. Lungs: Clear to auscultation. Heart: Sounds normal. Abdomen: Soft, bowel sounds normal. No guarding, rigidity, tenderness, or distention. Extremities: No leg edema. Laboratory Data: White count 7.2, hemoglobin 7, platelets 380. Sodium 132, potassium 4.3, chloride 103, bicarb 25, BUN 8, creatinine 0.61, glucose 127, magnesium 2, albumin 2.2. Impression: 1.Anemia. 2.Osteoarthritis, multiple sites. 3.Hypertension. Plan: We will go ahead and continue physical therapy under guidance of Dr. Simmons. The patient wi ll receive DVT prophylaxis using Lovenox per order and today we will go ahead and plan to give her 1 unit of PRBC blood transfusion. Her hemoglobin was 8.4 on September 18, 2023, at outside hospital. Deta ils and plan of treatment discussed with the patient. I will see her tomorrow for followup. KATT/MODL Voice ID: [id number] Report ID: [id number]
--- NOTE | 2023-09-25 00:06 | HP ---
Date of Admission: 09/23/2023 Time Of Service: 1:00 p.m. Chief Complaint: "I had surgery on my left shoulder, and I am weak." History Of Present Illness: Ms. Amor is an 87-year-old patient with hypertension, dyslipidemia, u lcerative colitis, osteoarthritis, who has had progressive pain and limited use of the left shoulder due to severe osteoarthritis that was refractory to conservative treatment. She was evaluated for gomez rgical intervention and eventually was admitted to [facility] on 09/18/2023 for left s houlder arthroplasty. The surgical procedure was without complications. However, postoperatively, s he has significant anemia, pain, leukocytosis, and hypertension that required monitoring in addition for hemodynamic control that was required. She was seen by the cardiology service, hospitalist rosa chahal. She had hyperglycemia as well. Her comorbid conditions did require involvement of nutrition ser vice as well. She was put on nonweightbearing status for the left upper extremity. Prior to the rec ent surgery, she was functioning with minimum assistance, but was limited again by pain, but since gomez rgery, she requires moderate assist for transfers, mobilization from bed to chair, to shower, to toil et and perform those activities and activities of daily living and requiring moderate assistance. Marianne chambers is therefore determined to be an appropriate candidate for aggressive inpatient rehabilitation whil e her comorbid conditions are managed. Past Medical History: Hypertension, dyslipidemia, ulcerative colitis, osteoarthritis, history of cameron ast, septum, and skin cancer. Past Surgical History: Right total hip arthroplasty in 2006, total knee arthroplasty in 2007, right shoulder replacement in 2019, and of course left shoulder arthroplasty recently done. Allergies: TRAMADOL. Medications: Tylenol Extra Strength 500 mg every 6 hours as needed, Maalox 30 mg every 6 hours as ne eded, Norvasc 5 mg at bedtime, aspirin 81 mg daily, Lipitor 20 mg at bedtime, Os-D[place] plus D twice cheko ly, Colace 100 mg twice daily, Lovenox 40 mg subcutaneously daily, ferrous sulfate 325 mg daily, Norc o 5/325 every 6 hours as needed, lidocaine patch apply topically daily, Milk of Magnesia 30 mL twice daily, Centrum 1 tablet daily, Bystolic 5 mg daily, Ensure Enlive 237 mL 3 times daily, Zofran 4 mg e very 6 hours as needed, Protonix 40 mg daily. Family History: Noncontributory. Review of Systems: Some mild left shoulder pain, which at this point is rated while in bed around 1/10; while mobilizing , max of 3/10. Otherwise, mild myalgias, arthralgias, joints, but no rash, no psychiatric complaints , no headache, no other positives on the systems review. Current Level Of Functioning: Currently, supervision for eating, oral hygiene. Moderate assist for toileting. Showering, upper body dressing, lower body dressing, donning and doffing of footwear all moderate assistance. For going from sitting to lying and lying to sitting on a sliding board, modera te assistance. For [id number] and transfer from bed to chair, to toilet, moderate assistance. Amb ulation is maximum assistance with a rolling walker covering 2 feet. Laboratory Studies: White blood cell count 7.2, hemoglobin 7.0, and she did receive a unit of packed red blood cells ordered by Dr. Huddleston and is actually ongoing today after finishing therapy. Otherwis e, her platelets are normal at 380. Sodium 132 and she will have sodium replacement as appropriate. Potassium 4.3, chloride 103, carbon dioxide 25, BUN 8, creatinine 0.61. Prealbumin is very low at 7 .8, consistent with severe malnutrition. Albumin low at 2.2. Magnesium 2.0. Calcium 8.0, glucose w as 127. Urinalysis is normal except for pH of 7.5. Physical Examination: Vital Signs: Blood pressure 112/56, pulse of 65, respiratory rate 16, temperature 98.1, oxygen satu ration 93%. Weight 124 pounds, height 5 feet, BMI 24.2. General: Ms. Amor is resting in bed. She is in no significant distress. She has left arm in a s ling. HEENT: She is normocephalic, atraumatic. Sclerae anicteric. Oropharynx pink, moist. Neck: Supple. Chest: Clear. Heart: Regular. Extremities: No significant edema or cyanosis noted and again left arm is nonweightbearing. Right a rm, she is able to move well. Note, she is actually left handed and will work to use the right arm f or most of her daily activities as the left arm is at nonweightbearing status, likely will be that wa y for at least 3 or 4 weeks. Rehabilitation And Medical Assessment And Plan: Ms. Amor is admitted to inpatient rehabilitation unit with impairment category 09, orthopedic, other. Her impairment group code is 08.9 other orthope dic. Etiologic diagnosis is osteoarthritis of the left shoulder. Her comorbids are decreased mobili ty, decrease in physical functioning, gastroesophageal reflux disease, dyslipidemia, hypertension, hy perglycemia, leukocytosis, postoperative pain, anemia, and osteoarthritis. Plan: 1.She will have physical, occupational, and if need be speech therapy for 3.5 hours, 5 of 7 days. 2.Due to severe anemia, which she has, will have protein supplementation with Ensure high-protein 3 times weekly. 3.Severe anemia. She is receiving a unit of blood, will be followed up potentially by a second unit depending on the response to the hemoglobin and hematocrit. She has had DVT prophylaxis with Loveno x. Will have aspirin 81 mg daily for stroke risk reduction. Use [place] 5/325 as needed every 6 hours for pain in addition to regular Tylenol every 2-4 hours as needed 500 mg. Continue Lipitor for dysl ipidemia, Norvasc 5 mg at bedtime for hypertension. Continue Os-Dakota plus D for her osteoporosis. Co ntinue Senokot twice daily for constipation, ferrous sulfate again added for anemia, lidocaine patch to the left shoulder to minimize the need for narcotic medications and for pain control. Again, Ensu re Enlive for malnutrition, Zofran for nausea, Protonix for GE reflux. Comorbidities That Are Impacting Her Rehabilitation: Currently, the issue of pain is well mitigated and not negatively impacting her rehabilitation. At this point, as noted she is left handed and that is the arm that is impacted and she will have to learn to use the right side for activities such as eating, dressing, transferring as the left arm is nonweightbearing. She will work with therapy to im prove the capacity. Rehab Specific Plan: 1.Ms. Amor will have physical, occupational and if need be speech therapy for 3.5 hours, 5 of 7 d ays to improve her ability to safely transfer from bed to chair, to toilet, to shower, to ambulate 25 0 feet with a likely right quad cane to mobilize wheelchair 250 feet, to able to go up and down 10 st eps with right side handrails and again and perform activities of daily living with modified independ ence and cognitive functioning to be done with modified independence. 2.If need be, she will have additional help from the orthopedic service. She has Dr. Huddleston who will be following her for comorbid conditions and Infectious Disease may be involved if need be. Ms. Amor has a good understanding of the process of admission to the inpatient rehabilitation [facility] and that she will benefit from physical, occupational, and if need be, speech therapy. She will have 24-hour a day senior living, daily physician evaluation, and social service evaluation and dread wesley for her discharge planning and durable medical equipment. Of course, physical, occupational , and speech therapy, again as needed. Barriers To Discharge: Currently, she is left handed and the left arm is nonweightbearing, so she wi ll again work hard with the right hand, but if she is unable to complete tasks well, she may have to go to senior living to give her more time to recover. Length Of Stay: About 13 days. Disposition: Home with family and Home Health. Prognosis: Good. Rehab Specific Plan: 1.Become independent with upper and lower body dressing, donning and doffing of shoes, with toiletin g, showering, and activities of daily living. 2.Independently ambulate 250 feet with a right quad cane. 3.Independently propel a wheelchair 250 feet. 4.Independently go up and down 10 steps with right side handrails. 5.Independently perform cognitive functioning such as for safety awareness, medication management, a nd follow up with physicians. 6.The above goals were reviewed with Ms. Amor and she is in agreement. By signing this document, I acknowledge I personally performed a full physical examination on Ms. Charles calix no later than 24 hours after her admission to the inpatient rehabilitation facility and determin ed that she is able to tolerate the above course of treatment at an intensive level for a reasonable period of time. A detailed individualized plan of care for her will be completed by hospital day 4 b ased on the preadmission screen, history and physical, and therapy evaluations. ULI Voice ID: [id number]
[2023-09-25] MEDS: ACETAMINOPHEN 500 MG TAB PO PRN (01:47)
[2023-09-25] MEDS: MELATONIN 3 MG TABLET PO SCH (21:04)
--- NOTE | 2023-09-25 22:48 | PN ---
Date of Progress Note: 09/25/2023 Subjective: The patient was seen this morning for followup. No new complaints or problems reported by her. She had hard time during physical therapy yesterday because yesterday was her first day of p hysical therapy and she also had anemia that required blood transfusion, which was given to her after her therapy session yesterday afternoon. Her post transfusion hemoglobin is up to 8.2. Her hemoglo bin was 8.4 on September 18, 2023, at outside hospital, so she is back to her baseline, the weight was se veral days ago. The patient states that overall she felt a lot better after blood transfusion. She slept very well last night, but she is requesting melatonin type of medications to help her with inso mnia problem. Objective: Vital Signs: Reviewed. HEENT: Unremarkable. Lungs: Clear to auscultation. Heart: Sounds normal. Abdomen: Soft. Bowel sounds normal. No guarding, rigidity, tenderness, distention. Extremities: No leg edema. Impression: 1.Anemia. 2.Osteoarthritis, multiple sites. 3.Hypertension. Plan: We will go ahead and continue DVT prophylaxis. Continue current antihypertensive medications. We will also continue iron supplement and no need for any further blood transfusion except monitoring at this time and physical therapy to be provided under guidance of Dr. Simmons. KATT/MODL Voice ID: [id number] Report ID: [id number]
[2023-09-26] MEDS: ONDANSETRON 4 MG (ODT) TAB PO PRN (10:37)
[2023-09-26] MEDS: levoFLOXacin 500 MG TAB PO ONE (10:37)
--- NOTE | 2023-09-26 17:09 | PN ---
Date of Progress Note: 09/26/2023 Subjective: The patient was seen this morning for followup. She was feeling much better. Denies an y complaints. Participating well with physical therapy. Objective: Vital Signs: Reviewed this morning, temperature 97.8, pulse 69, respiratory rate 18, blo od pressure 117/58, oxygen saturation 94% on room air. HEENT: Unremarkable. Lungs: Clear to auscultation. Heart: Sounds normal. Abdomen: Soft. Bowel sounds normal. No guarding, rigidity, tenderness, distention. Extremities: No leg edema. Laboratory Data: Urine culture grew pseudomonas and it is sensitive to Cipro and Levaquin. Impression: 1.Urinary tract infection. 2.Status post left shoulder arthroplasty. 3.Osteoarthritis, multiple sites. 4.Hypertension. 5.Anemia. Plan: We will go ahead and continue current blood pressure medication. Continue current pain medica tion. For anemia, no need for intervention except followup. We will continue iron supplement. For urinary tract infection, we will start the patient on Levaquin per order and I will see her tomorrow for followup. KATT/MODL Voice ID: [id number] Report ID: [id number]
[2023-09-26] MEDS: APIXABAN 2.5 MG TABLET PO SCH (21:49)
[2023-09-26] MEDS: FLUTICASONE 50MCG NASAL SPRAY NAS SCH (21:52)
[2023-09-27] MEDS: levoFLOXacin 500 MG TAB PO SCH (09:43)
--- NOTE | 2023-09-27 11:15 | PN ---
Date of Progress Note: 09/27/2023 Subjective: The patient was seen this morning for followup. She was lying in bed, not in any distre ss, did not feel good yesterday evening, had some nausea, but no vomiting. No abdominal pain. No he artburn, no indigestion. Physical Examination: Vital Signs: Reviewed. This morning, temperature 97, pulse 62, respiratory rate 18, blood pressure 115/56. Impression: 1.Nausea. 2.Anemia. 3.Hypertension. 4.Osteoarthritis, multiple sites. 5.Urinary tract infection. Plan: We will continue current antibiotic for urinary tract infection, which is Levaquin. We will g o ahead and continue nausea medication as needed. We will give some acid reducing therapy to see if that helps her nausea due to possibility of underlying gastritis type of problem, which the patient i s at increased risk with recent stress of surgery. We will go ahead and get some blood work done todayne ay, which will be CBC and CMP, and I will see her tomorrow for followup. KATT/SUSAN Voice ID: [id number] Report ID: [id number]
[2023-09-28 10:01] LABS: Absolute Basophils 0.1 K/uL (0-0.5); Absolute Eosinophils 0.2 K/uL (0-0.5); Absolute Lymphocytes (CBC) 2.1 K/uL (0.7-4.9); Absolute Monocytes 0.4 K/uL (0.1-1.3); Absolute Neutrophil 3.8 K/uL (1.8-8.0); Basophils % 0.9 % (0-1.3); Eosinophils % 2.8 % (0-4.4); Hematocrit 30.1 % (36.0-45.0); Lymphocytes % 32.1 % (15.3-44.8); MCH 25.9 pg (27.0-35.0); MCHC 33.3 g/dL (32.0-36.0); MCV 77.6 fL (80-100); MPV 7.4 fL (7.6-11.3); Monocytes % 5.7 % (3.3-12.3); Neutrophils % 58.5 % (41.7-73.7); Nucleated Red Blood Cells % 0.1 % (0-0); Platelets 487 thou/uL (152-406); RBC Red Blood Cell Count 3.88 M/uL (3.86-4.86); Red Cell Distribution Width 17.1 % (12.1-15.2)
[2023-09-28 10:16] LABS: Albumin 2.6 g/dL (3.4-5.0); Albumin/Globulin Ratio 0.6 (1.1-1.8); Anion Gap 10.4 mEq/L (5.0-15.0); Bilirubin Total 0.4 mg/dL (0.2-1.0); Globulin 4.2 g/dL (2.3-3.5); Magnesium 1.8 mg/dL (1.6-2.4); Potassium 3.4 mEq/L (3.5-5.1); Protein, Total 6.8 g/dL (6.4-8.2)
[2023-09-28 11:11] LABS: Atypical Lymphocytes 5 %; Band Neutrophils 3 % (0-1); Differential Total Cells Count 100; Eosinophils 1 % (0-3); Lymphocytes 27 % (15-42); Monocytes 4 % (0-10); Segmented Neutrophils 59 % (40-80)
[2023-09-28 11:12] LABS: Blood Morphology Comment NOTED (NOT SEEN); Platelet Estimate INCR; Poikilocytosis 2+; Polychromasia SLIGHT
--- NOTE | 2023-09-28 13:09 | PN ---
Date of Progress Note: 09/28/2023 Subjective: The patient was seen this morning for followup. She denied any complaints. Her nausea is better. She still has little nausea yesterday, but overall better. No vomiting. She did have a small bowel movement yesterday, she reports. No abdominal pain. No nausea or vomiting. Physical Examination: Vital Signs: Reviewed this morning, temperature 97.4, pulse 67, respiratory rate 16, blood pressure 119/58, oxygen saturation 95%. HEENT: Unremarkable. Lungs: Clear to auscultation. Heart: Sounds normal. Abdomen: Soft. Bowel sounds normal. No guarding, rigidity, tenderness, distention. Extremities: No leg edema. Impression: 1.Urinary tract infection. 2.Anemia. 3.Hypertension. 4.Constipation. Plan: We will continue current stool softener. Continue current DVT prophylaxis with Eliquis. We w ill continue current antihypertensive medications and iron supplement. We will repeat blood work tod ay which will be CBC and chemistry profile and follow up on results. KATT/SUSAN Voice ID: [id number] Report ID: [id number]
[2023-09-28] MEDS: MAGNESIUM HYDROXIDE 8% 30 ML PO PRN (17:37)
[2023-09-29 04:10] LABS: Absolute Eosinophils 0.1 K/uL (0-0.5); Absolute Lymphocytes (CBC) 1.7 K/uL (0.7-4.9); Absolute Monocytes 0.6 K/uL (0.1-1.3); Absolute Neutrophil 4.5 K/uL (1.8-8.0); Basophils % 0.7 % (0-1.3); Eosinophils % 1.4 % (0-4.4); Hematocrit 26.6 % (36.0-45.0); Hemoglobin 8.7 g/dL (12.0-15.0); Lymphocytes % 24.7 % (15.3-44.8); MCH 25.3 pg (27.0-35.0); MCHC 32.7 g/dL (32.0-36.0); MCV 77.3 fL (80-100); MPV 8.1 fL (7.6-11.3); Monocytes % 8.7 % (3.3-12.3); Neutrophils % 64.5 % (41.7-73.7); Nucleated Red Blood Cells % 0.1 % (0-0); Platelets 421 thou/uL (152-406); RBC Red Blood Cell Count 3.45 M/uL (3.86-4.86); Red Cell Distribution Width 17.1 % (12.1-15.2)
--- NOTE | 2023-09-29 23:27 | PN ---
Date of Progress Note: 09/29/2023 Subjective: The patient was seen this morning for followup. No new complaints or problems reported except has some intermittent nausea, but no abdominal pain. No vomiting. Objective: Vital Signs: Reviewed. HEENT: Unremarkable. Lungs: Clear to auscultation. Heart: Sounds normal. Abdomen: Soft. Bowel sounds normal. No guarding, rigidity, tenderness, or distention. Extremities: No leg edema. Laboratory Data: White count 7, hemoglobin 8.7, platelets 421. Sodium 132, potassium 4, chloride 10 0, bicarb 27, BUN 13, creatinine 0.57, glucose 152. Impression: 1.Urinary tract infection. 2.Anemia. 3.Hypertension. 4.Osteoarthritis, multiple sites. Plan: We will go ahead and continue physical therapy under guidance of Dr. Simmons. The patient is on iron supplement as well as oral antibiotic and both could cause nausea problem and this was discu ssed with her. We will continue current medications. Continue current DVT prophylaxis with Eliquis and we will see her tomorrow for followup. We will continue to monitor her blood work for anemia pro blem and no need for further intervention. KATT/MODL Voice ID: [id number] Report ID: [id number]
--- NOTE | 2023-09-30 19:42 | PN ---
Date of Progress Note: 09/30/2023 Subjective: The patient was seen this morning for followup. No new complaints or problems reported by the patient. She was lying in bed, not in distress. Denies any abdominal pain, nausea, vomiting. Objective: Vital Signs: Reviewed. HEENT: Unremarkable. Lungs: Clear to auscultation. Heart: Sounds normal. Abdomen: Soft. Bowel sounds normal. No guarding, rigidity, tenderness, distention. Extremities: No leg edema. Impression: 1.Urinary tract infection. 2.Anemia. 3.Hypertension. 4.Osteoarthritis, multiple sites. Plan: We will go ahead and continue physical therapy under guidance of Dr. Simmons. Continue curre nt antibiotic for urinary tract infection. Continue current antihypertensive medication and DVT prop hylaxis. I will see her tomorrow for followup. KATT/MODL Voice ID: [id number] Report ID: [id number]
--- NOTE | 2023-10-01 01:18 | PN ---
Date of Progress Note: 09/30/2023 Time Of Service: 1:20 p.m. Subjective: Ms. Amor is resting in bed with left shoulder in a sling and she is in no significant pain. She did have some pain in her right shoulder, but that has been addressed. She did have the left shoulder arthroplasty for advanced osteoarthritis. She, otherwise, has no new complaints. Objective: No changes such as fevers, myalgias and arthralgias. No chills. No issue of depression. No active dermatological issues or active gastrointestinal or genitourinary issues. It is noted th at she did receive 1 unit of packed red blood cells as hemoglobin had dropped down to 7 and now after transfusion, hemoglobin yesterday was 8.7, maximum was 10 on 09/28/2023. Otherwise in terms of examination, VITAL SIGNS: Blood pressure 114/54, pulse 80, respiratory rate 16, temperature 98.8. EXTREMITIES: The left arm is in a sling and with nonweightbearing status and she is able to maintain that throughout while in the chair and bed and mostly while in therapy sessions. Right upper extrem ity, no significant restriction, does have diffuse weakness in both lower extremities. No issues suc h as chest or abdomen. Laboratory Studies: White blood cell count 7.0, hemoglobin 8.7, platelets 421. Sodium 132, potassiu m 4.0, chloride 100, carbon dioxide 27, BUN 13, creatinine 0.57, glucose 152, calcium 8.4. X-ray/imaging: No new x-rays or imaging. Medications: Tylenol 500 mg every 6 hours as needed, [place] 5/325 every 6 hours as needed, Norvasc 5 mg at bedtime, Eliquis 2.5 mg twice daily, aspirin 81 mg daily, Lipitor 20 mg at bedtime, Dulcolax gomez ppository 10 mg per rectum as needed, Benadryl 25 mg every 6 hours for itching, Os-[place] plus D 1 table t twice daily, Colace 100 mg twice daily, ferrous sulfate 325 mg daily, Flonase 1 spray twice daily a s needed, Levaquin 500 mg daily, , lidocaine patch apply topically daily to shoulder as nee ded, melatonin 3 mg at bedtime, milk of magnesia 30 mL twice daily as needed for constipation, Centru m Silver 1 tablet daily, Bystolic 5 mg daily, Ensure Enlive 237 mg 3 times daily, Zofran 4 mg daily a s needed for nausea, Protonix 40 mg scheduled daily. Progress Made With Physical And Occupational Therapy: Today with physical therapy, she did use a sara d cane in the right upper extremity covered 50 feet 3 times, 30 feet 3 times, and 20 feet twice with standby assistance. She is able to ascend and descend 10 steps with handrails on the righ t with contact guard assistance. Wheelchair mobilization down for 250 feet independently. Supine-to -sit transfers done independently. Multiple sit to stand transfers done independently, stand and piv ot transfers done independently. With occupational therapy, supervision for shower and toilet transf ers using the grab bars, minimum assist for bathing and drying right upper extremity and left arm pit . Minimum assist for upper body dressing. Ms. Amor made great progress with physical and occupational therapy and will be discharged later i n the week. Assessment: Ms. Amor is an 87-year-old patient with severe osteoarthritis of the left shoulder, s tatus post left shoulder arthroplasty and now with nonweightbearing, sling in the left upper extremit y. She has comorbid hypertension, dyslipidemia, ulcerative colitis, osteoarthritis, pain, and anemia . Plan: 1.Continue with physical and occupational therapy for 3 hours a day, 5 of 7 days. 2.Left arm is kept in a sling with nonweightbearing status. She has her comorbidities addressed by continuing medications as listed above. DVT prophylaxis also provided and stroke risk reduction issu e addressed, GE reflux addressed. She has malnutrition addressed with Ensure Enlive, dyslipidemia wi th Lipitor and she is being followed by Dr. Huddleston, her primary care physician. Comorbidities That Are Impacting Rehabilitation: Of course, she is nonweightbearing with left lower extremity, has to do things with the right side, but she is doing very well with that. She has ongoi ng infection treated by IV antibiotics. Did have significant anemia treated by transfusion. She constantine l continue Levaquin per protocol. Hemoglobin and hematocrit monitored and treated appropriately. She has ferrous sulfate for iron supp lementation. LB/MODL Voice ID: [id number] Report ID: [id number]
--- NOTE | 2023-10-01 13:34 | P.RH.PN ---
Estimated Length of Stay: 13 Discharge Disposition Plan: Home Family Support: Yes T[facility] Pointer Goal: Mobility, Transfers, Self Care Vital Signs: Last Vital Signs Temp 97.8 F 10/01/23 08:00 Pulse 68 10/01/23 10:14 Resp 18 10/01/23 08:00 BP 121/58 L 10/01/23 10:14 Pulse Ox 96 10/01/23 08:00 Laboratory: Laboratory Last Values WBC 7.00 thou/uL (4.3-10.9) 09/29/23 03:24 RBC 3.45 M/uL (3.86-4.86) L 09/29/23 03:24 Hgb 8.7 g/dL (12.0-15.0) L D 09/29/23 03:24 Hct 26.6 % (36.0-45.0) L 09/29/23 03:24 MCV 77.3 fL (80-100) L 09/29/23 03:24 MCH 25.3 pg (27.0-35.0) L 09/29/23 03:24 MCHC 32.7 g/dL (32.0-36.0) 09/29/23 03:24 RDW 17.1 % (12.1-15.2) H 09/29/23 03:24 Plt Count 421 thou/uL (152-406) H 09/29/23 03:24 MPV 8.1 fL (7.6-11.3) 09/29/23 03:24 Neutrophils % 64.5 % (41.7-73.7) 09/29/23 03:24 Lymphocytes % 24.7 % (15.3-44.8) 09/29/23 03:24 Monocytes % 8.7 % (3.3-12.3) 09/29/23 03:24 Eosinophils % 1.4 % (0-4.4) 09/29/23 03:24 Basophils % 0.7 % (0-1.3) 09/29/23 03:24 Absolute Neutrophils 4.5 K/uL (1.8-8.0) 09/29/23 03:24 Segmented Neutrophils 59 % (40-80) 09/28/23 09:51 Band Neutrophils 3 % (0-1) H 09/28/23 09:51 Absolute Lymphocytes 1.7 K/uL (0.7-4.9) 09/29/23 03:24 Lymphocytes 27 % (15-42) 09/28/23 09:51 Monocytes 4 % (0-10) 09/28/23 09:51 Absolute Monocytes 0.6 K/uL (0.1-1.3) 09/29/23 03:24 Eosinophils 1 % (0-3) 09/28/23 09:51 Absolute Eosinophils 0.1 K/uL (0-0.5) 09/29/23 03:24 Basophils 1 % (0-1) 09/28/23 09:51 Absolute Basophils 0.0 K/uL (0-0.5) 09/29/23 03:24 Atypical Lymphocytes 5 % 09/28/23 09:51 Platelet Estimate Incr 09/28/23 09:51 Polychromasia Slight 09/28/23 09:51 Poikilocytosis 2+ 09/28/23 09:51 Schistocytes 2+ 09/28/23 09:51 Morphology Comment Noted (NOT SEEN) 09/28/23 09:51 Sodium 132 mEq/L (136-145) L 09/29/23 03:24 Potassium 4.0 mEq/L (3.5-5.1) D 09/29/23 03:24 Chloride 100 mEq/L (98-107) 09/29/23 03:24 Carbon Dioxide 27 mEq/L (21-32) 09/29/23 03:24 Anion Gap 9.0 mEq/L (5.0-15.0) 09/29/23 03:24 BUN 13 mg/dL (7-18) 09/29/23 03:24 Creatinine 0.57 mg/dL (0.55-1.02) 09/29/23 03:24 Est GFR (CKD-EPI) 87 ml/min (=/>90) L 09/29/23 03:24 Glucose 152 mg/dL (74-106) H 09/29/23 03:24 Calcium 8.4 mg/dL (8.5-10.1) L D 09/29/23 03:24 Magnesium 1.8 mg/dL (1.6-2.4) 09/28/23 09:51 Total Bilirubin 0.4 mg/dL (0.2-1.0) 09/28/23 09:51 AST 24 U/L (15-37) 09/28/23 09:51 ALT 16 U/L (13-56) 09/28/23 09:51 Alkaline Phosphatase 53 U/L (45-117) 09/28/23 09:51 Serum Total Protein 6.8 g/dL (6.4-8.2) 09/28/23 09:51 Albumin 2.6 g/dL (3.4-5.0) L 09/28/23 09:51 Globulin 4.2 g/dL (2.3-3.5) H 09/28/23 09:51 Albumin/Globulin Ratio 0.6 (1.1-1.8) L 09/28/23 09:51 Prealbumin 7.8 mg/dL (20-40) L 09/24/23 03:36 Urine Color Light-yellow (Yellow) 09/23/23 15:35 Urine Clarity Clear (Clear) 09/23/23 15:35 Urine pH 7.5 (5.0-7.0) H 09/23/23 15:35 Ur Specific [place] 1.005 (1.005-1.030) 09/23/23 15:35 Glucose (UA)(Auto) Negative (Negative) 09/23/23 15:35 Urine Ketones Negative (Negative) 09/23/23 15:35 Urine Blood Negative (Negative) 09/23/23 15:35 Urine Nitrite Negative (Negative) 09/23/23 15:35 Urine Bilirubin Negative (Negative) 09/23/23 15:35 Urine Urobilinogen Normal (Normal) 09/23/23 15:35 Ur Leukocyte Esterase Negative Kunal/uL (Negative) 09/23/23 15:35 Urine RBC None seen /HPF (None Seen) 09/23/23 15:35 Urine WBC <5 /HPF (<5) 09/23/23 15:35 Ur Squamous Epith Cells None seen /HPF (None Seen) 09/23/23 15:35 Amorphous Crystals Trace /HPF (None Seen) 09/23/23 15:35 Urine Bacteria <20 /HPF (<20) 09/23/23 15:35 Urine Culture Reflexed Not needed 09/23/23 15:35 Urine Total Protein Negative (Negative) 09/23/23 15:35 ABO/Rh Cancelled 04/03/24 Unknown Solid Phase Ab Screen Cancelled 09/24/23 Unknown Crossmatch See Detail 09/24/23 Unknown Weight: 123 lb 6.4 oz Wound Present: No Closed Surgical Incision Present: Yes Negative Pressure Wound Therapy Present: No Physician Update: Labs reviewed and are stable. Mild anemia and malnutrition. Pain 2/10 left shoulder and right back pain. She may return to [facility] independent living. Independent bed mobility. RW 125' with SBA. ADLs at supervision to min assist. Summary: Patient's care plan and senior care goals have been reviewed and revised as necessary. Please see the Rehabilitation Signature page for all necessary signatures.
--- NOTE | 2023-10-01 23:15 | PN ---
Date of Progress Note: 10/01/2023 Subjective: The patient was seen this morning for followup. No new complaints or problems reported. The patient was lying in bed, not in distress. Denies any nausea, vomiting. No abdominal pain. N o chest pain. No shortness of breath. Objective: Vital Signs: Reviewed. HEENT: Unremarkable. Lungs: Clear to auscultation. Heart: Sounds normal. Abdomen: Soft. Bowel sounds normal. No guarding, rigidity, tenderness, distention. Extremities: No leg edema. Impression: 1.Osteoarthritis, multiple sites. 2.Anemia. 3.Hypertension. 4.Urinary tract infection. Plan: We will continue current antibiotic which is Levaquin. Continue current blood pressure medica tion and DVT prophylaxis using Eliquis. We will repeat blood work tomorrow to monitor anemia problem . The patient did not have bowel movement in last day or 2 days and she is taking stool softener, bu t today she was advised to take milk of magnesia. KATT/MODL Voice ID: [id number] Report ID: [id number]
[2023-10-02 04:11] LABS: Absolute Basophils 0.1 K/uL (0-0.5); Absolute Eosinophils 0.2 K/uL (0-0.5); Absolute Lymphocytes (CBC) 2.4 K/uL (0.7-4.9); Absolute Monocytes 0.9 K/uL (0.1-1.3); Absolute Neutrophil 3.1 K/uL (1.8-8.0); Eosinophils % 3.4 % (0-4.4); Hematocrit 26.4 % (36.0-45.0); Hemoglobin 8.9 g/dL (12.0-15.0); Lymphocytes % 35.9 % (15.3-44.8); MCHC 33.9 g/dL (32.0-36.0); MCV 76.7 fL (80-100); MPV 7.7 fL (7.6-11.3); Neutrophils % 45.7 % (41.7-73.7); Platelets 436 thou/uL (152-406); RBC Red Blood Cell Count 3.44 M/uL (3.86-4.86); Red Cell Distribution Width 17.4 % (12.1-15.2)
[2023-10-02 04:44] LABS: Albumin 2.5 g/dL (3.4-5.0); Anion Gap 6.9 mEq/L (5.0-15.0); Magnesium 2.1 mg/dL (1.6-2.4); Potassium 3.9 mEq/L (3.5-5.1); Prealbumin 12.4 mg/dL (20-40)
--- NOTE | 2023-10-02 23:48 | PN ---
Date of Progress Note: 10/02/2023 Subjective: The patient was seen this morning for followup. No new complaints or problems reported by the patient. She was lying in bed, not in distress. Denies any new complaints. No abdominal candelaria n, nausea, vomiting. No chest pain, shortness of breath. Objective: Vital Signs: Reviewed. HEENT: Unremarkable. Lungs: Clear to auscultation. No wheezing. No rales. Heart: Sounds normal. Abdomen: Soft. Bowel sounds normal. No guarding, rigidity, tenderness, distention. Extremities: No leg edema. Laboratory Data: White count 6.7, hemoglobin 8.9, platelets 436. Sodium 137, potassium 3.9, chlorid e 104, bicarb 30, BUN 11, creatinine 0.68, glucose 108. Impression: 1.Anemia. 2.Osteoarthritis, multiple sites. 3.Hypertension. 4.Hyperlipidemia. Plan: We will go ahead continue current anticoagulation therapy. Continue current blood pressure me dication. We will continue physical therapy under guidance of Dr. Simmons. I will see her tomorrow for followup. She is scheduled to get discharge tomorrow and I will see her in the morning. KATT/MODL Voice ID: [id number] Report ID: [id number]
--- NOTE | 2023-10-03 03:00 | PN ---
Date of Progress Note: 10/02/2023 Time Of Service: 1:15 p.m. Subjective: Ms. Amor is doing well, resting in between therapy sessions, left arm is in swing. S he is actually ambulating very well. She is about to stand up and transfer and ambulate with the [facility] therapist and again she is very happy about her progress. Has no significant pain in the left arm which is kept in a sling. Objective: No fevers, chills. No significant nausea, vomiting, myalgias, arthralgias, rash, headach e, weight change. She does feel a little bit stronger after having improved hemoglobin. Physical Examination: Vital Signs: Blood pressure 126/67, pulse 56, respiratory rate 18, temperature 97.4, oxygen saturati on 96%. General: Ms. Amor again is standing holding the cane in her right hand and the therapist has a ga it belt and walking outside. HEENT: Normocephalic, atraumatic. Again, left arm is in a sling. Abdomen: Soft. Extremities: Show no significant edema, cyanosis, or clubbing. Laboratory Studies: White blood cell count 6.7, hemoglobin 8.9, platelets 436. Sodium 137, potassiu m 3.9, chloride 104, carbon dioxide 30, BUN 11, creatinine 0.68, glucose 108, calcium 8.6, magnesium 2.1, prealbumin improved to 12.4 from 7.8, and albumin improved from 2.2 to 2.5. X-ray/imaging: No new x-rays or imaging. Progress Made With Physical And Occupational Therapy: Today, completed multiple trials of bed mobili zation with independence. Multiple qyv-yc-werax transfer and hoqfl-hw-xwfxm transfers with modified independence. Similarly, did a car transfer with supervision, able to ambulate 30 feet, 145 feet, 16 5 feet with modified independence using a single prong cane. She did need a lot of encouragement. M obilized wheelchair 150 feet with modified independence. With occupational therapy, independent with jek-qq-hwzor transfers, ambulated from room to toilet with a cane with independence, completed toile t transfer independently, donning and doffing of shoes with a sling, required verbal cues. Independe nt with lower body dressing and footwear and toileting. Complete ADLs and transfers independently. Ms. Amor did very well with physical and occupational therapy and is actually ready to be discharg ed home and will continue aggressive therapy via Home Health. Assessment: Ms. Amor is an 87-year-old patient in rehabilitation unit with osteoarthritis of the left shoulder, left arm is in a sling. She has advanced osteoarthritis, but otherwise she has made g reat progress with her physical and occupational therapy. She has hypertension, dyslipidemia, ulcera tive colitis, mild pain, and chronic anemia. Plan: 1.Continue with physical and occupational therapy for 3 hours a day, 5 of 7 days. 2.Left upper extremity is at nonweightbearing status with a sling. She will follow up with Orthoped ic Surgery and she is following up with her primary care physician, Dr. Huddleston, after discharge tomorro w. Continue treatment for her malnutrition with Ensure Enlive, dyslipidemia treated with Lipitor, an d GE reflux treated with Protonix. Comorbidities That Are Continuing To Impact Rehabilitation: The left upper extremity has no weightbe aring and is in a sling, but despite that, she is actually doing very well and she did complete treat ment for urinary tract infection, has treatment for anemia and malnutrition and continues to do well with that and she will continue with Dr. Huddleston follow up after discharge and Orthopedic Surgery. LB/MODL Voice ID: [id number] Report ID: [id number]
[2023-10-03 07:21] VITALS: BP 124/58; TEMP 97.4
--- NOTE | 2023-10-03 08:54 | DS ---
Date of Discharge: 10/03/2023 Disposition: Discharged to go home. Physical Examination: HEENT: Unremarkable. Lungs: Clear to auscultation. Heart: Sounds normal. Abdomen: Soft. Bowel sounds normal. No guarding, rigidity, tenderness, or distention. Extremities: No leg edema. Laboratory Data: Upon admission on 09/24/2023, white count 7.2, hemoglobin 7, platelets 380, and aft er 1 unit of blood transfusion, hemoglobin came up to 8.2 on 09/24/2023. Last blood work from yester day, white count 6.7, hemoglobin 8.9, platelets 436. Chemistry upon admission, sodium 132, potassium 4.3, chloride 103, bicarb 25, BUN 8, creatinine 0.61, glucose 127. Last chemistry yesterday, sodium 137, potassium 3.9, chloride 104, bicarb 30, BUN 11, creatinine 0.68, glucose 108, albumin 2.5. Discharge Medications And Instructions: 1.Continue all prior home medications. 2.Take iron 65 mg 1 tablet by mouth daily with food. 3.Follow up at my office next week on 10/08/2023 or 10/09/2023. Hospital Course: An 87-year-old very pleasant female patient, who had left shoulder arthroplasty eddie daniel done in [place] and was brought to our inpatient rehab for rehab therapy. Please see dictated H and P for more information. After the patient was admitted to rehab floor, Dr. Simmons managed her physical therapy and the patient improved very well with therapy. She lives at [facility] and [facility] she will return back to [facility] in stable condition. During this hospitalization, she did re quire 1 unit of PRBC blood transfusion day after admission and after that, hemoglobin has remained st able. She was started on oral iron supplement and she has this supply available at home. She was ad vised to continue to use it. She was also diagnosed as having urinary tract infection. This was bronwyn ated with culture specific antibiotic, Levaquin. She has had some nausea problem which was addressed with nausea medication during this hospitalization. Her other chronic medical problems are stable. Initially, DVT prophylaxis was given using Lovenox and subsequently it was changed to Eliquis 2.5 mg 2 times a day and she has tolerated that very well. Overall, the patient's condition has improved a nd today she was discharged to go back to [facility] where she lives in stable condition and I will see her at office for followup visit next week. She really does not have any pain in her left upper extremity and has not required any pain medication and does not need to go home with any pain medica tion, but in the event of any pain, she will use Tylenol 500 mg 4 times a day as I have discussed wit h her today. Final Diagnoses: 1.Osteoarthritis, multiple sites. 2.Anemia. 3.Urinary tract infection. 4.Hypertension. 5.Hypothyroidism. 6.Hyperlipidemia. 7.Gastroesophageal reflux disease. 8.Diverticulosis. 9.Ulcerative colitis. 10.Left breast cancer. 11.Osteoporosis. Total time spent minutes. KATT/SUSAN Voice ID: [id number] Report ID: [id number]
== END 2023-10-03 14:00 | disposition home health service (06) | DRG 560 ==
LOC: 5TH 14:50
PROVIDERS: ADMIT Internal Medicine; ATTEND Internal Medicine
PROC: 30233N1 Transfusion of Nonautologous Red Blood Cells into Peripheral Vein, Percutaneous Approach (ICD-10-PCS; principal; 2023-09-24)
DX: Z47.1 Aftercare following joint replacement surgery (principal); E44.1 Mild protein-calorie malnutrition; K51.90 Ulcerative colitis, unspecified, without complications; N39.0 Urinary tract infection, site not specified; E03.9 Hypothyroidism, unspecified; I10 Essential (primary) hypertension; Z86.73 Personal history of transient ischemic attack (TIA), and cerebral infarction without residual deficits; E78.5 Hyperlipidemia, unspecified; M15.9 Polyosteoarthritis, unspecified; K21.9 Gastro-esophageal reflux disease without esophagitis; K57.90 Diverticulosis of intestine, part unspecified, without perforation or abscess without bleeding; M81.0 Age-related osteoporosis without current pathological fracture; Z85.3 Personal history of malignant neoplasm of breast; D64.9 Anemia, unspecified; R73.9 Hyperglycemia, unspecified; K59.00 Constipation, unspecified; Z68.24 Body mass index [BMI] 24.0-24.9, adult
CPT/HCPCS: 36415; 80048; 80053; 81001; 82040; 83735; 84134; 85014; 85018; 85025; 86850; 86900; 86901; 86920; 87077; 87086; 87088; 87186; 97110; 97112; 97116; 97163; 97165; 97530; 97542; J1650; J2001; P9016; Q0162